=== PATIENT | male | born 1950 | race Caucasian/White ===

== ENCOUNTER 2017-02-12 09:48 | Inpatient (IN) | payer MEDICARE, OTHER ==
[2017-02-12] VITALS (10 sets, daily range): BP systolic 114–148; BP diastolic 42–80; PULSE 62–75; RESP 18–34; O2SAT 90–97
[~2017-02-12] VITALS: Ht 182.9 cm; Wt 166.9 kg
[~2017-02-12 09:48] MED LIST: ALBU8.5H2 INHALATION; FURO-128 PO; GABA-502 PO; GEMF600T PO; GLIP10TA10 PO; MAGN400T4 PO; METF500T4 PO; METO100T3 PO; METO25TA6 PO; SIMV20TA4 PO; WARF5TAB7 PO; WARF7.5T4 PO; ZYL100 PO
--- NOTE | 2017-02-12 10:24 | ED.REPORT ---
HPI-Dyspnea / Wheezing Date of Service Feb 12, 2017 ED Provider: Сергей Chun MD Pt is a 66 year old obese male anticoagulated on warfarin who is a life-long nonsmoker with a history of CHF presents to the ED via personal vehicle complaining of shortness of breath onset in August 2016. The patient has had ongoing symptoms since then with exacerbation to the point that he has been unable to breath at times over the last 3 weeks, rating the severity as a 4-5/ 10. The patient has a history of sleep apnea on CPAP as well as a valve replacement. Last he consulted Dr. Trujillo, Cardiology, and will be adding oxygen to his treatment.The patient states that he has also been feeling very fatigued and lethargic. The patient denies chest pain, lower extremity swelling, weight increase and all other symptoms at this time. Most recent INR 2.6, per patient. Nursing Notes Stated Complaint: SEVERE SHORTNESS OF BREATH Chief Complaint: Respiratory Complaints Nursing Notes Reviewed: Yes ([employer], [employer] not reconciled) Allergies: Coded Allergies: No Known Allergies (Verified Allergy, Unknown, 07/13/16) Uncoded Allergies: POLLENS (Allergy, Unknown, 04/19/14) Scheduled Albuterol HFA (Proair HFA) 8.5 Gm Hfa.aer.ad 2 PUFFS INHALATION BID Allopurinol (Allopurinol) 100 Mg Tablet 100 MG PO DAILY Furosemide (Lasix) 40 Mg Tablet 40 MG PO BID Gabapentin (Gabapentin) 300 Mg Capsule 300 MG PO TID Gemfibrozil (Lopid) 600 Mg Tablet 600 MG PO BID Glipizide (Glipizide) 10 Mg Tablet 10 MG PO AM Magnesium Oxide (Magnesium Oxide) 400 Mg Tablet 400 MG PO BID Metformin (Metformin) 500 Mg Tablet 500 MG PO BID Metoprolol Tartrate (Metoprolol Tartrate) 100 Mg Tablet 100 MG PO BID Simvastatin (Simvastatin) 20 Mg Tablet 20 MG PO HS Warfarin Sodium (Warfarin Sodium) 5 Mg Tablet 5 MG PO ,,,,,Sa Warfarin Sodium (Warfarin Sodium) 7.5 Mg Tablet 7.5 MG PO Wednesdays Scheduled PRN Metoprolol Tartrate (Metoprolol Tartrate) 25 Mg Tablet 25 MG PO DAILY PRN PRN palpitations General Time Seen by MD: 10:22 Chief Complaint Shortness of breath Hx Obtained From: Patient Arrived By: Walk-in Sudden in Onset?: No Onset Occurred: More than a week ago... (6 months) Symptom Duration: Since onset Context Related History: Reports: Congestive heart failure Similar Sx Previous: Yes Past Medical History Past Medical History Notes: PCP: Dr. Shaver Past Medical History Obesity (BMI 53) HTN CHF w/ preserved EF, ho valvular disease s/p TAVR 01/2016 -> anticoagulated, on Warfarin DM Hyperlipidemia Aortic stenosis (now s/p TAVR) GERD Sleep apnea Charcot foot ho [place] ho JOSE/renal insufficiency Past Surgical History Vasectomy January 2016, aortic valve replacement at the (TAVR) left foot surgery Reports: Pacemaker insertion Family History Noncontributory Smoking History Never Smoker Social History Other Social History: Local resident Ambulatory Status Cane Review of Systems Constitutional: Reports: Fatigue, Lethargy, Denies: Fever Respiratory: Reports: Dyspnea on exertion, Non-productive cough, Shortness of breath Cardiovascular: Denies: Chest pain Complete sys rev & neg: except as marked. GI: Denies: Diarrhea, Nausea, Vomiting Physical Exam Initial Vital Signs Vital Signs (First) Date Time Temp Pulse Resp B/P Pulse Ox O2 Delivery O2 Flow Rate FiO2 02/12/17 09:52 37.1 67 24 148/80 90 02/12/17 10:15 Nasal Cannula 3 02/12/17 10:54 30 Initial VS: Reviewed, Vital signs abnormal (incr RR) Head / Eyes: Atraumatic, Normocephalic Skin: Warm, Dry Neurologic: Alert, Oriented General/Constitutional: Awake, Alert, Well developed, Well nourished Appearance / Presentation: Positive: Obese, morbidly Neck: Atraumatic, Supple, No meningismus, Full range of motion, No swelling, Non-tender, No masses Diminished Breath Sounds: Positive: Decreased bilateral Patient is dyspneic, but able to converse Lungs are diminished bilaterally with poor air movement His breathing is rated as 4-5/10 in severity Cardiovascular: Heart rate NL, Regular rhythm, No murmurs Lower Ext Edema: Positive: Bilateral 1+, Pitting Lower Extremity / Pelvis / MS: Full range of motion, Neurologic intact, Vascular intact Legs splinting bilaterally due to Charcot disease. Interpretation & Diagnostics Lab Results Interpretation Result Diagram: 02/12/17 1010 02/12/17 1010 Test 02/12/17 10:10 White Blood Count 11.7th/mm3 (3.8-10.1) Red Blood Count 4.64mil/mm3 (4.40-5.80) Hemoglobin 15.4g/dL (13.8-17.2) Hematocrit 48.0% (41.0-50.0) Mean Corpuscular Volume 103.4fL (81-100) Mean Corpuscular Hemoglobin 33.2pg (27.0-35.0) Mean Corpuscular Hemoglobin Concent 32.1% (32.0-37.0) Red Cell Distribution Width 16.2% (12.3-15.4) Platelet Count 231bil/L (150-400) Neutrophils (%) (Auto) 80.3% (40-74) Lymphocytes (%) (Auto) 9.7% (14-46) Monocytes (%) (Auto) 7.0% (4-12) Eosinophils (%) (Auto) 2.5% (0-5) Basophils (%) (Auto) 0.3% (0-3) Prothrombin Time 36.8sec (8.1-12.5) Prothromb Time International Ratio 3.36ratio Activated Partial Thromboplast Time 40.7sec (22.8-33.0) D-Dimer < 0.50mg/L FEU (<0.50) Sodium Level 140mEq/L (134-144) Potassium Level 5.1mEq/L (3.5-5.2) Chloride Level 96mEq/L (97-108) Carbon Dioxide Level 30mmol/L (18-29) Blood Urea Nitrogen 35mg/dL (8-27) Creatinine 1.54mg/dL (0.76-1.27) Estimat Glomerular Filtration Rate 48mL/min (>59) Glucose Level 177mg/dL (60-99) Lactic Acid Level 1.9mmol/L (0.4-2.0) Calcium Level 9.0mg/dL (8.5-10.1) Magnesium Level 2.3mg/dL (1.6-2.6) Total Bilirubin 0.4mg/dL (0.0-1.2) Aspartate Amino Transf (AST/SGOT) 29U/L (0-50) Alanine Aminotransferase (ALT/SGPT) 23U/L (0-44) Alkaline Phosphatase 111U/L (25-160) Troponin T < 0.010ug/L (0.0-0.011) Pro-B-Type Natriuretic Peptide 4744pg/mL (0-376) Total Protein 7.3g/dL (6.4-8.4) Albumin 3.7g/dL (3.4-5.0) Procalcitonin 0.12ng/mL (0.00-0.08) Hold Martinez Top Tube Received (Received) Lab Results Interpretation: CBC mild leukocytosis CMP mild renal insufficiency D-dimer negative BMP elevated Venous Blood Gas - hypercapnic pH: 7.37 pCO2: 61 pO2: 70.6 (on 3L) cHCO3: 35 cBase: 8.3 ECG Interpretation ECG Interpretation: Sinus rhythm 1st degree heart block AZ interval 209 IVCD Q waves anteriorly and inferiorly No acute ischemic change No interval change from 08/31/2016 Time: 11:25 Interpreted by: ED physician X-Ray Chest Interpretation Chest Xray Interpretation: IMPRESSION: Increase patchy right basilar opacities suggestive of aspiration/atelectasis versus pneumonia. Please correlate clinically. Dictated by: Marino Benton M.D. on 02/12/2017 at 10:57 Approved by: Marino Benton M.D. on 02/12/2017 at 10:59 Electronically signed by Marino Benton View: Portable, 1 view Interpretation / Wet Read by: Interpret - Radiologist Re-Eval/Medical Decision Med Decision/Clinical Course This is a 66-year-old morbidly obese gentleman with a history of valvular disease status post TAVR, severe sleep apnea on BiPAP at night-is recently been evaluated to have increased O2 during BiPAP, and CHF who presents with worsening shortness of breath. He reports he was admitted in August, numbness had a difficult time ever since, but over the past 2 weeks or so symptoms got significantly worse. He follows his pulse oximetry, and notes hypoxia during the day in the low 80s-although is not on O2 at at night. He also notes profound fatigue,. Apnea, and reports even using his BiPAP intermittently during the day to try and help with symptoms. Denies fevers, chills, cough. It turns out he is on the diuretic torsemide. Worsening symptoms he came to the ED. He is hypoxic and requires supplemental O2 here. He is fatigued and side stream end-tidal CO2 elevated in the 50s, and a venous blood gas was drawn and reveals a PCO2 of 60 that appears to be chronic compensation. The patient is therapeutic on his warfarin. Chest x-rays interpreted by the radiologist concerning for pneumonia. Clinically this seems less likely with CHF more likely. Labs are also notable for renal insufficiency with a creatinine lump from normal a mildly elevated level today. BNP is also over 4000 and was much lower in August. The patient was started on BiPAP here-he is not in the extremis, but I suspect a component of central apnea as well-and overall I think the portion of the presentation is secondary to chronic hypercapnic, hypoxic respiratory failure. Given the patient does have a white count, the radiologist reading his films and pneumonia blood cultures being drawn and the patient is being covered for pneumonia, although clinically I remained strongly suspicious more towards CHF. Patient's therapeutic, does not have clinical features suggest PE. Plan is admission for continued management. Source of Hx: Old records Re-Evaluation/Progress : Time of Eval: 13:55 Re-Evaluation/Progress Note: Discussed need for admission. The patient understands and agrees with the plan. All questions have been answered at this time. Consultation : Consulted With: Hospitalist Call Returned at: 13:54 Credit Collections Manager: Agrees with eval, Agrees with plan, Accepts admit Differential Diagnosis: Positive: Congestive heart failure, Pneumonia, Respiratory failure (chronic), Negative: Acute coronary syndrome, Dysrhythmia, Inhalation injury, Myocardial infarction, Pericarditis, Pulmonary embolism Counseled Regarding: Diagnosis, Lab results, Need for admission Discharge & Departure Impression: Primary Impression: Shortness of breath Additional Impressions: Hypoxia Hypercapnia Pneumonia Pneumonia type: due to unspecified organism Laterality: unspecified laterality Lung location: unspecified part of lung Qualified Code: J18.9 - Pneumonia, unspecified organism CHF (congestive heart failure) Congestive heart failure type: unspecified congestive heart failure type Congestive heart failure chronicity: acute on chronic Qualified Code: I50.9 - Heart failure, unspecified Renal insufficiency Morbid obesity with BMI of 50.0-59.9, adult Anticoagulated on Coumadin Disposition: ADMITTED TO HOSPITAL Discharge Condition All VS Reviewed: Yes Condition: Stable Referrals: Doni Shaver MD (PCP) Crit Care Except Billable Proc Time Spent: 30-74 minutes Services Performed: Patient management by me, Time spent at bedside, Reviewing test results, Reviewing imaging, Discussing patient care, Documentation in record Scribe Attestation Portions of this note were transcribed by Cezar Calabrese and Christopher Bender. I, Dr. Chun personally performed the history, physical exam and medical decision -making; I reviewed and confirmed the accuracy of the information in the transcribed note. Signed by: Cezar Calabrese and Christopher Bender, Pete, 02/12/2017 and 14:34 copies to: Doni Shaver MD, Matthew F MD Feb 12, 2017 10:24 Cezar Calabrese Feb 12, 2017 10:34 CHRISTOPHER BENDER Feb 12, 2017 12:53
[2017-02-12 10:26] LABS: BASOPHILS % (AUTO) 0.3 % (0-3); EOSINOPHILS % (AUTO) 2.5 % (0-5); Mean Corpuscular Hemoglobin 33.2 pg (27.0-35.0); Mean Corpuscular Volume 103.4 fL (81-100); NEUTROPHILS % (AUTO) 80.3 % (40-74); Platelet Count 231 bil/L (150-400)
[2017-02-12 10:47] LABS: D-Dimer < 0.50 mg/L FEU (<0.50); INR 3.36 ratio
--- NOTE | 2017-02-12 11:00 | DRSVH ---
PROCEDURE: X-RAY CHEST ONE VIEW, PORTABLE ([id number]) INDICATIONS: SHORTNESS OF BREATH TECHNIQUE: One view of the chest was acquired. COMPARISON: [facility], [place], XR CHEST 1VW (PORTABLE), 08/31/2016, 10:56. FINDINGS: Surgical changes and devices: Cardiac pacer. Lungs and pleura: Increased ill-defined patchy opacities involving the right lung base. Cannot exclud e trace right pleural effusion. No pneumothorax. Chronic diffuse/interstitial changes Mediastinum: Mediastinal contours appear normal. Heart size is normal. Bones and chest wall: No suspicious bony lesions. Overlying soft tissues appear unremarkable. IMPRESSION: Increase patchy right basilar opacities suggestive of aspiration/atelectasis versus pneum onia. Please correlate clinically. Dictated by: Marino Benton M.D. on 02/12/2017 at 10:57 Approved by: Marino Benton M.D. on 02/12/2017 at 10:59
[2017-02-12 11:07] LABS: Magnesium 2.3 mg/dL (1.6-2.6); TROPONIN T < 0.010 ug/L (0.0-0.011)
--- NOTE | 2017-02-12 11:17 | ABG ---
DateTimeAnalyzed 11:12:17 -_ pH ____7.371 - pCO2 ___60.5__ -mmHg pO2 ___70.6__ -mmHg HCO3- ___35.0__ -mmol/L ABE ____8.3__ -mmol/L tHb ___15.3__ -g/dL O2Hb ___91.4__ -% COHb ____3.0__ -% MetHb ___-0.3__ -% sO2 ___93.9__ -% FIO2 ___21.0__ -% Drawn By rn - Notified By cf - Notified Whom ___Dr. Adiel - B 758 -mmHg K+ ____4.6__ -mmol/L tO2 ___19.5__ -Vol% Blayne test N/A -
[2017-02-12] MEDS ORDERED: cefTRIAXone Inj 2,000 MG in Dextrose 5% Minibag Plus 50 ML IV ONE (13:25)
[2017-02-12] MEDS ORDERED: Furosemide 10 mg/mL 10 mL Inj IVPUSH ONE (13:25)
[2017-02-12] MEDS ORDERED: Furosemide 10 mg/mL 2 mL Inj IVPUSH ONE (13:25)
[2017-02-12] MEDS ORDERED: Azithromycin Inj 500 MG in Dextrose 5% w/Vial Mate 250 ML IV ONE (13:25)
[2017-02-12] MEDS ORDERED: Alum-Mag Hydrox-Simeth 30 mL Suspension PO PRN ×2 (14:35→16:45)
[2017-02-12] MEDS ORDERED: Ondansetron 2 mg/mL 2 mL Inj IVPUSH PRN ×2 (14:35→16:45)
[2017-02-12] MEDS ORDERED: BUME1TAB4 PO (15:43)
[2017-02-12] MEDS ORDERED: SPIR25TA3 PO (15:43)
[2017-02-12] MEDS ORDERED: LISI-571 PO (15:43)
[2017-02-12] MEDS ORDERED: TORS20TA3 PO (15:43)
[2017-02-12 15:56] LABS: APPEARANCE,URINE CLEAR (CLEAR,HAZY); COLOR,URINE YELLOW (YELLOW); OCCULT BLOOD,URINE NEGATIVE (NEGATIVE); UROBILINOGEN,URINE NORMAL (NORMAL)
[2017-02-12] MEDS ORDERED: HYDR-3740 PO (16:42)
[2017-02-12] MEDS ORDERED: WARF2.5T82 PO (16:42)
[2017-02-12] MEDS ORDERED: AMOX500C2 PO (16:42)
[2017-02-12] MEDS ORDERED: Polyethylene Glycol (PEG) 17 Gm Powder PO PRN (16:45)
[2017-02-12] MEDS ORDERED: Senna-Docusate 8.6-50 mg Tablet PO PRN (16:45)
[2017-02-12] MEDS ORDERED: Glucose 40% Oral Gel 15 Gm Tube PO PRN (17:45)
--- NOTE | 2017-02-12 18:05 | NUR ---
Patient arrived in CCU after 1500 today. Patient was awake and oriented and denied having any pain. Oxygen saturation on 4L NC was 97-98%- O2 was turned down to 2L NC with oxygen saturation remaining at 94-95%. BIPAP in the room patient declined BIPAP for now. He stated: "I will go back on it after dinner"- continue assessment. Initially patient's heart rate was SR with IVCD 70's-80's but within one hour from the time the patient came to CCU heart rate changed to a v- paced rhythm in mid to high 90s. Patient had a strong skin/body odor especially to both legs. Right medial ankle with old mostly closed wound and with minimal but purulent strong smelling drainage- dressing was changed.The patient stated :" I am being seen by wound care for IT". Wound care consult was ordered for evaluation while in the hospital. 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
--- NOTE | 2017-02-12 18:40 | PCM.HPMED ---
Subjective Date of Service Feb 12, 2017 Primary Provider: Admitting Physician: Mario Faustin DO Primary Care Physician: Doni Shaver MD Attending Physician: Mario Faustin DO Admit Status: From the Emergency Department Chief Complaint: Shortness of breath History of Present Illness: This is a 66-year-old male with a past medical history of congestive heart failure, aortic stenosis, diabetes, obstructive sleep apnea and pacemaker. He has been struggling with shortness of breath for about 2 months but significantly worse over the last 2 weeks with increase in dyspnea on exertion as well as orthopnea. Onset was gradual and he has been seen by his primary care physician who instructed him to stay away from salt but no significant medication changes. 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 He denies any cough, no fevers or chills, no chest pain. He recently had his metoprolol increased from 100-150 mg twice a day, and he was also changed from by mouth bumex to torsemide about 2 months ago. He has Charcot's joint in bilateral lower extremities and has foot prostheses. He is independent with his ADLs but has continuing periodic infections of his feet and has no sensation bilaterally. He denies any headaches dizziness abdominal pain, diarrhea constipation, dysuria no known current infections. No increased anxiety or depression. Review of Systems: As in history of present illness otherwise 12 point review of systems negative Allergies Coded Allergies: No Known Allergies (Verified Allergy, Unknown, 02/12/17) Uncoded Allergies: POLLENS (Allergy, Unknown, 04/19/14) Home Medications Albuterol HFA (Proair HFA) 8.5 Gm Hfa.aer.ad 2 PUFFS INHALATION BID Allopurinol (Allopurinol) 100 Mg Tablet 100 MG PO DAILY Furosemide (Lasix) 40 Mg Tablet 40 MG PO BID Gabapentin (Gabapentin) 300 Mg Capsule 300 MG PO TID Gemfibrozil (Lopid) 600 Mg Tablet 600 MG PO BID Glipizide (Glipizide) 10 Mg Tablet 10 MG PO AM Magnesium Oxide (Magnesium Oxide) 400 Mg Tablet 400 MG PO BID Metformin (Metformin) 500 Mg Tablet 500 MG PO BID Metoprolol Tartrate (Metoprolol Tartrate) 150 Mg Tablet 100 MG PO BID Simvastatin (Simvastatin) 20 Mg Tablet 20 MG PO HS Warfarin Sodium (Warfarin Sodium) 5 Mg Tablet 5 MG PO [place],Mo,Tu,Th,Fr,Sa Warfarin Sodium (Warfarin Sodium) 7.5 Mg Tablet 7.5 MG PO Wednesdays PMH Obesity (BMI 53) HTN CHF w/ preserved EF, ho valvular disease s/p TAVR 01/2016 -> anticoagulated, on Warfarin DM Hyperlipidemia Aortic stenosis (now s/p TAVR) GERD Sleep apnea Charcot foot ho [place] ho JOSE/renal insufficiency Surgical History Vasectomy January 2016, aortic valve replacement at the (TAVR) left foot surgery Reports: Pacemaker insertion Family History Mother had diabetes, father with lung cancer Social History Occupation: retired from [employer] Alcohol Use: Yes Alcoholic Drinks Per Day: 6-8 day Hx Substance Use: No Hx Tobacco Use: No Smoking Status: Never Smoker Exam Vital Signs Vital Sign - Last Date Time Temp Pulse Resp B/P Pulse Ox O2 Delivery O2 Flow Rate FiO2 02/12/17 15:42 Supplement Oxygen 02/12/17 15:20 36.6 75 28 147/71 97 4.00 02/12/17 12:47 30 Exam General: Alert, Oriented X3 NAD. Chronically ill-appearing Head: Normocephalic, atraumatic Eyes: IVAN, EOMI, no scleral Icterus Oropharynx: pink moist oral mucosa Neck: supple, trachea midline, no adenopathy Chest: Decreased breath sounds throughout, difficult exam due to body habitus Heart: Regular rate and rhythm. Normal S1, S2, no murmurs noted Abdomen: soft, obese, non-tender. Bowel sounds are normoactive. No guarding or rebound. Extremities: Charcot joints bilaterally, left ankle prominence bandaged. No open wounds, no edema Skin: Chronic skin changes on his lower extremities, no open wounds Neuro: Cranial nerves II-XII intact, no focal findings. Psych: normal judgement and insight. Lab and Diagnostics Result Diagram: 02/12/17 1010 02/12/17 1010 Assessment & Plan This is a 66-year-old male with known diastolic congestive heart failure admitted for CHF exacerbation and possible early pneumonia. He has been started on IV Lasix as well as Rocephin and azithromycin for community-acquired pneumonia treatment. He has a history of aortic valve replacement by TaVR and is on chronic anticoagulation. Respiratory failure: -Multifactorial, chest x-ray showing early pneumonia, history of CHF and possible undiagnosed COPD -Treatment as below -Continue supplemental oxygen Congestive heart failure exacerbation, chronic systolic: -Lasix 40 mg IV twice a day -Strict I's and O's, daily weights -Low sodium diet -Continue metoprolol -Echocardiogram 6 months ago showing diastolic dysfunction, normal systolic function with 60-65% LVEF Early community-acquired pneumonia, present on admission: -Continue Rocephin and azithromycin -Cultures pending Possible COPD: -No wheezing on exam but decreased breath sounds concerning for COPD -Recommend outpatient follow-up with pulmonology for PFTs -Consider short course of steroids if no improvement with above treatment Type II diabetes: -Medium sliding scale insulin -Holding glipizide and metformin -Diabetic diet History of aortic stenosis with T aVR -Continue Coumadin per pharmacy JODIE, present on admission: -RT consultation for CPAP or BiPAP Acute on chronic renal failure, stage II: -Avoiding IV fluids in setting of congestive heart failure -Follow BMP CODE STATUS: Full code DVT prophylaxis: Fully anticoagulated with Coumadin Disposition: Independent with ADLs, likely home at discharge pending hospital course. Time spent 65 minutes Mario Faustin DO Feb 12, 2017 18:40
--- NOTE | 2017-02-12 18:49 | PCM.CONPHA ---
Subjective Date of Service: Feb 12, 2017 Reason for Pharmacy Consult: Anticoagulation Management Objective Vital Signs Date Time Temp Pulse Resp B/P Pulse Ox O2 Delivery O2 Flow Rate FiO2 02/12/17 15:42 Supplement Oxygen 02/12/17 15:20 36.6 75 28 147/71 97 Nasal Cannula 4.00 02/12/17 12:47 27 94 30 02/12/17 12:38 65 29 134/42 95 BiPAP 02/12/17 10:54 24 96 30 02/12/17 10:15 62 30 137/48 92 Nasal Cannula 3 02/12/17 09:52 37.1 67 24 148/80 90 Weight (Kilograms): 172.700 Height (Feet): 6 Height (Inches): 0 Test 02/12/17 10:10 02/12/17 15:38 White Blood Count 11.7th/mm3 (3.8-10.1) Red Blood Count 4.64mil/mm3 (4.40-5.80) Hemoglobin 15.4g/dL (13.8-17.2) Hematocrit 48.0% (41.0-50.0) Mean Corpuscular Volume 103.4fL (81-100) Mean Corpuscular Hemoglobin 33.2pg (27.0-35.0) Mean Corpuscular Hemoglobin Concent 32.1% (32.0-37.0) Red Cell Distribution Width 16.2% (12.3-15.4) Platelet Count 231bil/L (150-400) Neutrophils (%) (Auto) 80.3% (40-74) Lymphocytes (%) (Auto) 9.7% (14-46) Monocytes (%) (Auto) 7.0% (4-12) Eosinophils (%) (Auto) 2.5% (0-5) Basophils (%) (Auto) 0.3% (0-3) Prothrombin Time 36.8sec (8.1-12.5) Prothromb Time International Ratio 3.36ratio Activated Partial Thromboplast Time 40.7sec (22.8-33.0) D-Dimer < 0.50mg/L FEU (<0.50) Sodium Level 140mEq/L (134-144) Potassium Level 5.1mEq/L (3.5-5.2) Chloride Level 96mEq/L (97-108) Carbon Dioxide Level 30mmol/L (18-29) Blood Urea Nitrogen 35mg/dL (8-27) Creatinine 1.54mg/dL (0.76-1.27) Estimat Glomerular Filtration Rate 48mL/min (>59) Glucose Level 177mg/dL (60-99) Lactic Acid Level 1.9mmol/L (0.4-2.0) Calcium Level 9.0mg/dL (8.5-10.1) Magnesium Level 2.3mg/dL (1.6-2.6) Total Bilirubin 0.4mg/dL (0.0-1.2) Aspartate Amino Transf (AST/SGOT) 29U/L (0-50) Alanine Aminotransferase (ALT/SGPT) 23U/L (0-44) Alkaline Phosphatase 111U/L (25-160) Troponin T < 0.010ug/L (0.0-0.011) Pro-B-Type Natriuretic Peptide 4744pg/mL (0-376) Total Protein 7.3g/dL (6.4-8.4) Albumin 3.7g/dL (3.4-5.0) Procalcitonin 0.12ng/mL (0.00-0.08) Thyroid Stimulating Hormone (TSH) 1.670uIU/mL (0.450-4.500) Hold Martinez Top Tube Received (Received) Urine Color Yellow (YELLOW) Urine Appearance Clear (CLEAR,HAZY) Urine pH 5.0 (5.0-8.0) Urine Specific [place] 1.020 (1.003-1.035) Urine Protein Negativemg/dL (NEG,TRACE) Urine Glucose (UA) Negativemg/dL (NEGATIVE) Urine Ketones Negativemg/dL (NEGATIVE) Urine Occult Blood Negative (NEGATIVE) Urine Nitrite Negative (NEGATIVE) Urine Bilirubin Negative (NEGATIVE) Urine Urobilinogen Normalmg/dL (NORMAL) Urine Leukocyte Esterase Negative (NEGATIVE) Urine RBC 0-2/hpf (0-2) Urine WBC 0-5/hpf (0-5) Urine Epithelial Cells Few/hpf (NONE-MOD) Urine Crystals None seen (NONE SEEN) Urine Bacteria Few/hpf (NONE-FEW) Urine Hyaline Casts Occasional/lpf (NONE) Urine Granular Casts None seen (NONE SEEN) Urine Waxy Casts None seen (NONE SEEN) Urine Red Blood Cell Casts None seen (NONE SEEN) Urine White Blood Cell Casts None seen (NONE SEEN) Urine Mucus Present (None Seen) Urine Trichomonas None seen (NONE SEEN) Urine Yeast None (NONE SEEN) Urinalysis Comment None Urine Culture Reflexed Not indicated Assessment/Plan Assessment/Plan Warfarin management per pharmacy Indication: aortic TAVR INR goal: 2-3 Home warfarin dose: 2.5 mg on Mondays, 5 mg on all other days of the week INR (02/12/17): 3.36 INR is supratherapeutic. Hold warfarin dose tonight. Serial INRs have been ordered x5. Pharmacy to continue to monitor and dose warfarin daily. Thank you, Kizzy Bennett Pharmacist Kizzy Bennett Feb 12, 2017 18:49
[2017-02-12] MEDS: HYDROcodone-APAP 10-325 mg PO PRN (20:29)
[2017-02-12] MEDS: Furosemide 10 mg/mL 4 mL Inj IVPUSH SCH (20:30)
[2017-02-12] MEDS: Insulin LISPRO 300 Unit/3 mL Inj SUBQ SCH (20:33)
[2017-02-12] MEDS ORDERED: 0.9% Sodium Chloride 100 ML ONE (20:34)
[2017-02-12] MEDS: Sodium Chloride LOK Flush 10 mL Syringe IVFLUSH SCH (20:38)
[2017-02-13] VITALS (17 sets, daily range): BP systolic 89–169; BP diastolic 45–108; PULSE 62–78; RESP 18–30; O2SAT 91–96
[2017-02-13 02:51] LABS: BASOPHILS % (AUTO) 0.3 % (0-3); EOSINOPHILS % (AUTO) 2.7 % (0-5); MONOCYTES % (AUTO) 9.3 % (4-12); Mean Corpuscular Hemoglobin 32.8 pg (27.0-35.0); Mean Corpuscular Volume 103.7 fL (81-100); NEUTROPHILS % (AUTO) 72.5 % (40-74); Platelet Count 224 bil/L (150-400)
[2017-02-13 03:08] LABS: INR 3.03 ratio
--- NOTE | 2017-02-13 05:59 | NUR ---
Resp. Pt placed on Bipap at HS but pt tolerated it poorly. Pt had brought own Cpap form home and requested to be placed on his own CPAP. However pt frequently desated into low 80's with 2L O2 blown into it. Increased O2 to 4 L but this did not resolve the problem. Explained to pt importance of keeping sats up and pt agrees to be placed back on Bipap. Pt still occ. desats into high 80's, RT aware.
[2017-02-13] MEDS: Sodium Chloride LOK Flush 10 mL Syringe IVFLUSH SCH ×3 (08:00→21:04)
[2017-02-13] MEDS: cefTRIAXone Inj 1,000 MG in Dextrose 5% Minibag Plus 50 ML IV SCH (08:00)
[2017-02-13] MEDS: Insulin LISPRO 300 Unit/3 mL Inj SUBQ SCH ×4 (08:00→20:57)
[2017-02-13] MEDS: Furosemide 10 mg/mL 4 mL Inj IVPUSH SCH ×2 (08:01→19:38)
[2017-02-13] MEDS: HYDROcodone-APAP 10-325 mg PO PRN ×2 (10:01→19:39)
--- NOTE | 2017-02-13 11:56 | PCM.PHAPRO ---
Progress Date of Service: Feb 13, 2017 Warfarin management per pharmacy Indication: aortic TAVR INR goal: 2-3 Home warfarin dose: 2.5 mg on Mondays, 5 mg on all other days of the week INR Trends Date -Feb 13-Feb INR 3.36 3.03 INR change ~ -0.33 Warf Dose HELD 2.5 INR is almost back into range Will restart home dose of 2.5 mg and give a OT tonight Serial INRs have been ordered x5. Pharmacy to continue to monitor and dose warfarin daily. Thank you, Sara Dubois PharmD Feb 13, 2017 11:56
--- NOTE | 2017-02-13 13:38 | NUR ---
Wound Care [facility] Patient seen for pressure ulcer protocol. Patient previously seen at outpatient wound clinic but discharged approximately one month ago due to wounds healed. Evaluated feet. No open areas noted. Skin very dry and flaking. Patient reports use of Nystatin power manages dry skin. Nystatin powder ordered by , awaiting from pharmacy. Patient requests new offloading foam for left medial ankle. RN has padded ankle with mepilex foam and hypafix tape. Skin check with no other open areas noted. Patient using bariatric ODILON bed. Instructed in turning frequently to decrease prolonged pressure to any area of skin with heel floated. Patient teaches back need to turn side to side every 2 hours and to float heels. Patient found to have excoriated and moist skin to groin skin folds, worse to left. Applied calmoseptine to excoriated areas and placed pillow case in skin folds to decrease moisture. Nurse to apply nystatin to skin folds, as well as feet, when arrives. Nursing to cont to manage skin care. Please re-consult wound care services if needs arise.
[2017-02-13] MEDS: Nystatin 100,000 Unit/Gm 15 Gm Powder TOPICAL SCH ×2 (15:36→20:49)
--- NOTE | 2017-02-13 15:39 | NUR ---
Social Work-initial assessment: Data: See initial assessment. EMR reviewed. Pt is a 66 y/o male who on 02/12/17 for Hypercapia, Hypoxia and respiratory failure per H&P. Patient's re-admit score is four high risk. Pt's insurance is [facility] and Patient's PCP is Dr. Doni Shaver. SW met with patient at bedside to discuss discharge planning, SW role explained and initial assessment complete. SW discussed DPOA/ Advanced directive, pt states he has completed this and will have son bring a copy in. Patient has no VA or LTC benefits. Patient's NOK is his son Taiwo Wesley [phone]. Pt resides at home alone, but his son lives right next door. Pt does not normally use any DME, but has a walker, transfer bench and w/c at home. Pt also has home bipap. Pt has had services in the past with [facility] and [facility]. Pt has been to [facility] in the past. Patient's discharge needs are currently unknown. SW provided patient with a choice. and patient chose [facility] if home health is needed upon discharge. Pt states his son will provide transport home at discharge. SW will continue to follow. Plan: Pt to discharge home when medically stable via POV. Patient requested [facility] if it is needed upon discharge. SW will continue to follow. Bradly Curry LMSW, ATILIO Addendum: 02/13/17 at 1551 by BRADLY CURRY SS Amended: Links added.
--- NOTE | 2017-02-13 16:55 | PCM.PNMED ---
Subjective Date of Service Feb 13, 2017 Subjective Patient resting comfortably in bed, he feels only slightly better today. No chest pain, nausea and vomiting. Exam Vital Signs Vital Sign - Last Date Time Temp Pulse Resp B/P Pulse Ox O2 Delivery O2 Flow Rate FiO2 02/13/17 16:01 36.6 65 18 117/60 95 CPAP 4.00 02/13/17 12:54 30 Intake and Output 02/12/17 02/12/17 02/13/17 Cumulative From/Thru 15:00 23:00 07:00 02/12/17 09:52 - 02/13/17 06:44 Intake Total 450 ml 320 ml 770 ml Output Total 500 ml 1050 ml 1550 ml Balance -50 ml -730 ml -780 ml Intake Oral 200 ml 320 ml 520 ml IV Total 250 ml 250 ml Output Urine Total 500 ml 1050 ml 1550 ml # Voids 1 1 Exam General: Alert, Oriented X3 NAD. Chronically ill-appearing Head: Normocephalic, atraumatic Eyes: IVAN, EOMI, no scleral Icterus Chest: Decreased breath sounds throughout, difficult exam due to body habitus Heart: Regular rate and rhythm. Normal S1, S2, no murmurs noted Abdomen: soft, obese, non-tender. Bowel sounds are normoactive. No guarding or rebound. Extremities: Charcot joints bilaterally, left ankle prominence bandaged. No open wounds, no edema IVs and Medications Medications Reviewed: Medications were reviewed in detail Lab and Diagnostics Result Diagram: 02/13/17 02402/13/17 024 Assessment & Plan This is a 66-year-old male with known diastolic congestive heart failure admitted for CHF exacerbation and possible early pneumonia. He has been started on IV Lasix as well as Rocephin and azithromycin for community-acquired pneumonia treatment. He has a history of aortic valve replacement by TaVR and is on chronic anticoagulation. Respiratory failure: -Multifactorial, chest x-ray showing early pneumonia, history of CHF and possible undiagnosed COPD -Treatment as below -Continue supplemental oxygen -Screening PFTs show severe restrictive lung disease Congestive heart failure exacerbation, chronic systolic: -Lasix 40 mg IV twice a day -Strict I's and O's, daily weights -Low sodium diet -Continue metoprolol -Echocardiogram 6 months ago showing diastolic dysfunction, normal systolic function with 60-65% LVEF Early community-acquired pneumonia, present on admission: -Continue Rocephin and azithromycin -Cultures pending Possible COPD: -No wheezing on exam but decreased breath sounds concerning for COPD -Recommend outpatient follow-up with pulmonology for PFTs. Screening PFT showing severe restrictive lung disease Type II diabetes: -Medium sliding scale insulin -Holding glipizide and metformin -Diabetic diet History of aortic stenosis with T aVR -Continue Coumadin per pharmacy JODIE, present on admission: -RT consultation for CPAP or BiPAP Acute on chronic renal failure, stage II: -Avoiding IV fluids in setting of congestive heart failure -Follow BMP CODE STATUS: Full code DVT prophylaxis: Fully anticoagulated with Coumadin Disposition: Independent with ADLs, likely home at discharge pending hospital course. Mario Faustin DO Feb 13, 2017 16:55
--- NOTE | 2017-02-13 18:29 | NUR ---
respiratory, mentation, skin, pain pt. on bipap this am at 30%; taken off and placed on 4L NC; pt. this afternoon became restless, somewhat disoriented, starting to get oob unassisted; bp 140's/40's, bg 133, o2 sats mid 90's; placed pt. back on bipap; md notified; no new orders. Pt. stated feeling better on bipap and requested home cpap; tolerating well; mentation cleared within several hours. left medial ankle assessed by wound care and dressing changed; see note. Pt. received full bed bath and linen change today; calmoseptine and nystatin applied in groin and abdominal folds; pillowcases in folds. c/o 05/15 left toothache this am; prn norco given with relief.
[2017-02-14] VITALS (14 sets, daily range): BP systolic 115–163; BP diastolic 55–84; PULSE 71–88; RESP 16–34; O2SAT 90–98
--- NOTE | 2017-02-14 03:59 | NUR ---
Sats/pain/mentation At start of shift, stated he felt confused and like he needed to go back on CPAP. Placed on home CPAP with 4 liter bleed in. This kept sats in low-mid 90's until after midnight, when sats kept dropping into low 80's. RT here and placed pt on bipap. This has kept sats around 95% throughout the night. Patient has been oriented and cooperative. C/O tooth pain and oxycodone given with good effect, reducing pain to 2/10, which patient states is good.
[2017-02-14 04:19] LABS: Mean Corpuscular Hemoglobin 32.7 pg (27.0-35.0); Platelet Count 225 bil/L (150-400)
[2017-02-14 04:37] LABS: INR 1.88 ratio
[2017-02-14 05:46] LABS: BASOPHILS % (AUTO) 0 % (0-3); EOSINOPHILS % (AUTO) 5 % (0-5); MONOCYTES % (AUTO) 5 % (4-12); NEUTROPHILS % (AUTO) 75 % (40-74)
[2017-02-14] MEDS: Insulin LISPRO 300 Unit/3 mL Inj SUBQ SCH ×4 (08:00→21:45)
[2017-02-14] MEDS: cefTRIAXone Inj 1,000 MG in Dextrose 5% Minibag Plus 50 ML IV SCH (08:16)
[2017-02-14] MEDS: Furosemide 10 mg/mL 4 mL Inj IVPUSH SCH ×3 (08:19→21:39)
[2017-02-14] MEDS: Nystatin 100,000 Unit/Gm 15 Gm Powder TOPICAL SCH ×2 (08:19→20:30)
[2017-02-14] MEDS: Sodium Chloride LOK Flush 10 mL Syringe IVFLUSH SCH ×3 (08:20→21:41)
--- NOTE | 2017-02-14 10:07 | PCM.PNMED ---
Subjective Date of Service Feb 14, 2017 Subjective He is still short of breath. No chest pain. No nausea or diarrhea or abdomen pain. He denies rhinorrhea, sore throat, or cough. He is very anxious and his legs are swollen. Overnight events reviewed. Exam Vital Signs Vital Sign - Last Date Time Temp Pulse Resp B/P Pulse Ox O2 Delivery O2 Flow Rate FiO2 02/14/17 09:00 Supplement Oxygen CPAP/BIPAP 02/14/17 08:12 36.6 83 34 142/58 91 4.00 02/14/17 07:22 35 Intake and Output 02/13/17 02/13/17 02/14/17 Cumulative From/Thru 15:00 23:00 07:00 02/12/17 09:52 - 02/14/17 04:49 Intake Total 1260 ml 100 ml 2130 ml Output Total 975 ml 650 ml 3175 ml Balance 285 ml -550 ml -1045 ml Intake Oral 1200 ml 100 ml 1820 ml IV Total 60 ml 310 ml Output Urine Total 975 ml 650 ml 3175 ml # Voids 1 # Bowel Movements 0 0 Exam Anxious, but alert and oriented. Fluent speech Anicteric sclera Lungs with some inspiratory wheezing (denies ever smoking) Heart regular, no murmur Abdomen distended Legs and feet with gross edema. No rash. IVs and Medications Medications Reviewed: Medications were reviewed in detail Lab and Diagnostics Result Diagram: 02/14/17 0355 02/14/17 0355 Assessment & Plan This is a 66-year-old male with known diastolic congestive heart failure admitted for CHF exacerbation and possible early pneumonia. He has been started on IV Lasix as well as Rocephin and azithromycin for community-acquired pneumonia treatment. He has a history of aortic valve replacement by TaVR and is on chronic anticoagulation. #. Acute hypoxic respiratory falure, POA. Unclear etiology, perhaps multifactorial. -Multifactorial, chest x-ray showing early pneumonia, history of CHF and possible undiagnosed COPD -Treatment as below -Continue supplemental oxygen Continue ABx as well as diuresis. Will obtain ECHO today. Consider rule out pulmonary embolism. #. Acute on chronic diastolic HF, POA: -Lasix 40 mg IV , will increase to TID. -Strict I's and O's, daily weights -Low sodium diet -Continue metoprolol -Echocardiogram 6 months ago showing diastolic dysfunction, normal systolic function with 60-65% LVEF #. Possible community-acquired pneumonia, present on admission: -Continue Rocephin and azithromycin -Cultures pending #. Type II diabetes: -Medium sliding scale insulin -Holding glipizide and metformin -Diabetic diet No change to medical management #. History of aortic stenosis with T aVR, POA. -Continue Coumadin per pharmacy. Repeat ECHO. #. JODIE, present on admission: POA. Clinically stable. -RT consultation for CPAP or BiPAP #. Acute on chronic renal failure, stage II: -Avoiding IV fluids in setting of congestive heart failure -Follow BMP, this is about the same. Avoid nephrotoxins and renal dose as required. CODE STATUS: Full code DVT prophylaxis: Fully anticoagulated with Coumadin Disposition: Independent with ADLs, likely home at discharge pending hospital course. Pain Evaluation: Adequate Pain Control Resuscitation Status: CPR: Attempt Resuscitation Time spent 30 min Blayne Clemons MD Feb 14, 2017 10:07
[2017-02-14] MEDS: HYDROcodone-APAP 10-325 mg PO PRN (11:06)
--- NOTE | 2017-02-14 17:05 | NUR ---
O2/Pain/Anxiety The pt was on 4L NC for the majority of the day - going on cpap with a 4L bleed in during an afternoon nap. The pt's sats are holding in the low 90's. The pt continues to report tooth pain with 1 tab Lemmon successfully managing it. The pt has been feeling anxious through the shift, and an order for Ativan TID was prescribed with good results.
--- NOTE | 2017-02-14 18:57 | DRSVH ---
[facility] [address] [place] [address] Echocardiogram Report Name: MADYSON GREGORY JStudy Date: 02/14/2017 Height: 72 in Hospital Exam Location: [facility] Weight: 385 lb Gender: Male BSA: 2.8 m2 : 1950 Age: 66 yrs BP: 142/58 mmHg Reason For Study: Dyspnea Ordering Physician: HOSPITALIST SVerformed By: Earnest Marshall Referring Physician: JAMES ARELLANO Interpretation Summary This was a technically difficult study. 1. The left ventricle is not optimally visualized. The size appears at least mildly dilated. The function (with the use of Definity) appears grossly normal. 2. The right ventricle is not well visualized. 3. The prosthetic aortic valve (although not optimally visualized) appears to be functioning well (the velocities and gradient obtained on this study are less than on the previous study) 4. The mitral valve is not optimally visualized. The gradient across the valve is suggestive of moderate to severe valvular stenosis (the gradient was reported as higher on the previous study) Procedure: A two-dimensional transthoracic echocardiogram with color flow and Doppler was performed. The study quality was technically difficult. A contrast injection of Definity was performed to improve assessment of LV function. Comparison is made with the echocardiogram of 08/09/16. The patient has a paced rhythm. Left Ventricle: LV is not well visualized but the size appears at least mildly dilated. The outflow tract velocities are elevated. Right Ventricle: The right ventricle is not well visualized. There is a pacemaker lead in the right ventricle. Atria: The left atrium is mildly dilated. The right atrium is mildly dilated. There is no Doppler evidence for an interatrial shunt. Mitral Valve: The mitral valve is not well visualized. The mitral valve mean gradient is 11 mmHg. There is mild mitral regurgitation. Aortic Valve: There is a bioprosthetic aortic valve. The aortic valve mean gradient is 22 mmHg. The velocity ratio is 0.5. No aortic regurgitation is present. Tricuspid Valve: The tricuspid valve is not well visualized. Pulmonary artery pressures cannot be estimated because of the lack of a measurable TR jet velocity. Pulmonic Valve: The pulmonic valve is not well visualized. Great Vessels: The aortic Sinus(es) of Valsalva are borderline dilated. The ascending aorta is mildly enlarged. The pulmonary is not well visualized. The IVC is dilated (diameter is greater than 2.1 cm) and it collapses less than 50% with a sniff. This suggests a high right atrial pressure of 15 mm Hg. Pericardium/ Pleura There is no pericardial effusion. There is no pleural effusion. MMode/2D Measurements & Calculations RA long axis: 6.3 cm LVOT diam: 2.5 cm LA A4 area: 29.2 cm Ao root diam: 4.4 cm IVC diam: 3.1 cm RA area: 27.1 cm asc Aorta Diam: 3.8 cm RA vol: 99.1 ml RA : 35.2 ml/m2 Doppler Measurements & Calculations Ao V2 max MV E max doc MV E/A: 1.8 MV V2 mean : 318.3 cm/sec : 242.8 cm/sec : 150.8 cm/sec Ao max PG MV A max doc MV mean PG : 40.5 mmHg : 137.4 cm/sec : 10.9 mmHg Ao mean PG MVA(VTI): 2.8 cm2 MV V2 VTI : 22.0 mmHg LVOT Max Doc MV dec time : 159.5 cm/sec : 0.18 sec CAROL(I,D): 2.7 cm sev ratio Ao V2 mean LV V1 max PG CAROL indexed to BSA : 224.1 cm/sec (cm^2/m^2): 0.95 Ao V2 VTI: 66.4 cmLV V1 VTI: 35.6 cm CAROL(V,D): 2.5 cm2 Reading Physician:06:56 PM
[2017-02-15] VITALS (11 sets, daily range): BP systolic 116–146; BP diastolic 45–69; PULSE 67–79; RESP 16–32; O2SAT 92–97
[2017-02-15 03:41] LABS: INR 1.57 ratio
[2017-02-15] MEDS: Insulin LISPRO 300 Unit/3 mL Inj SUBQ SCH ×4 (08:00→21:06)
[2017-02-15] MEDS: Nystatin 100,000 Unit/Gm 15 Gm Powder TOPICAL SCH ×2 (09:02→21:03)
[2017-02-15] MEDS: Sodium Chloride LOK Flush 10 mL Syringe IVFLUSH SCH ×3 (09:02→21:06)
[2017-02-15] MEDS: Furosemide 10 mg/mL 4 mL Inj IVPUSH SCH ×3 (09:02→21:03)
[2017-02-15] MEDS: cefTRIAXone Inj 1,000 MG in Dextrose 5% Minibag Plus 50 ML IV SCH (09:04)
--- NOTE | 2017-02-15 10:17 | NUR ---
[facility] Signed
--- NOTE | 2017-02-15 11:16 | PCM.PNMED ---
Subjective Date of Service Feb 15, 2017 Subjective Some disorientation last night. None now, less dyspnea. No cough. No fevers. No dysuria or constipation. Was on BiPAP most of night. RN notes reviewed. Exam Vital Signs Vital Sign - Last Date Time Temp Pulse Resp B/P Pulse Ox O2 Delivery O2 Flow Rate FiO2 02/15/17 10:52 71 02/15/17 07:10 36.7 118/55 95 Nasal Cannula 4.00 02/15/17 05:27 22 02/14/17 20:24 35 Intake and Output 02/14/17 02/14/17 02/15/17 Cumulative From/Thru 15:00 23:00 07:00 02/12/17 09:52 - 02/15/17 06:51 Intake Total 940 ml 400 ml 3470 ml Output Total 825 ml 800 ml 4800 ml Balance 115 ml -400 ml -1330 ml Intake Oral 840 ml 400 ml 3060 ml IV Total 100 ml 410 ml Output Urine Total 825 ml 800 ml 4800 ml # Voids 1 # Bowel Movements 1 1 Exam Anxious, but alert and oriented. Fluent speech Anicteric sclera Lungs with some inspiratory wheezing (denies ever smoking) Heart regular, no murmur Abdomen distended Legs and feet with gross edema. No rash. Some ecchymosis, and venous stasis changes on legs IVs and Medications Medications Reviewed: Medications were reviewed in detail Lab and Diagnostics Result Diagram: 02/14/17 0355 02/14/17 0355 Cardiac Echo Impressions 1. The left ventricle is not optimally visualized. The size appears at least mildly dilated. The function (with the use of Definity) appears grossly normal. 2. The right ventricle is not well visualized. 3. The prosthetic aortic valve (although not optimally visualized) appears to be functioning well (the velocities and gradient obtained on this study are less than on the previous study) 4. The mitral valve is not optimally visualized. The gradient across the valve is suggestive of moderate to severe valvular stenosis (the gradient was reported as higher on the previous study) Assessment & Plan This is a 66-year-old male with known diastolic congestive heart failure admitted for CHF exacerbation and possible early pneumonia. He has been started on IV Lasix as well as Rocephin and azithromycin for community-acquired pneumonia treatment. He has a history of aortic valve replacement by TaVR and is on chronic anticoagulation. #. Acute hypoxic respiratory falure, POA and improving. Probable acute diastolic HF relating to mitral stenosis. -Treatment as below -Continue supplemental oxygen Continue ABx as well as diuresis. Will obtain ECHO today. Consider rule out pulmonary embolism. #. Acute on chronic diastolic HF, POA and improving: -Lasix 40 mg IV , will increase to TID. -Strict I's and O's, daily weights -Low sodium diet -Continue metoprolol -ECHO stable except moderate to severe mitral stenosis. #. Possible community-acquired pneumonia, present on admission and improving: -Continue Rocephin and azithromycin -Cultures pending #. Acute on chronic renal failure, stage II:POA, and status pending (labs pending) -Avoiding IV fluids in setting of congestive heart failure -Follow BMP, this is about the same. Avoid nephrotoxins and renal dose as required. #. Confusion, new since last night. ABG today to rule out hypercarbia. #. Type II diabetes:POA and stable. -Medium sliding scale insulin -Holding glipizide and metformin -Diabetic diet No change to medical management #. History of aortic stenosis with T aVR -Continue Coumadin per pharmacy. Repeat ECHO. #. Moderate to severe mitral stenosis, POA. Follow clinically. #. JODIE, present on admission and stable: -RT consultation for CPAP or BiPAP CODE STATUS: Full code DVT prophylaxis: Fully anticoagulated with Coumadin Disposition: Independent with ADLs, likely home at discharge pending hospital course. Discharge Monday at soonest. Pain Evaluation: Adequate Pain Control Resuscitation Status: CPR: Attempt Resuscitation Blayne Clemons MD Feb 15, 2017 11:16
[2017-02-15 11:18] LABS: Mean Corpuscular Hemoglobin 32.9 pg (27.0-35.0); Mean Corpuscular Volume 106.3 fL (81-100)
[2017-02-15 11:40] LABS: Magnesium 2.5 mg/dL (1.6-2.6)
--- NOTE | 2017-02-15 13:09 | DRSVH ---
PROCEDURE: X-RAY CHEST ONE VIEW, PORTABLE ([id number]) INDICATIONS: dyspnea TECHNIQUE: One view of the chest was acquired. COMPARISON: [facility], CR, XR CHEST 1VW (PORTABLE), 02/12/2017, 10:12. FINDINGS: Surgical changes and devices: Stable position of left cardiac pacer. Lungs and pleura: No pleural effusions or pneumothorax. Persistent bibasilar airspace opacities and small pleural effusions present. Mediastinum: Mediastinal contours appear normal. Heart size is normal. Bones and chest wall: No suspicious bony lesions. Overlying soft tissues appear unremarkable. IMPRESSION: Persistent bibasilar air space opacity suspicious for pneumonia and there are small pleur al effusions present. Dictated by: Kushal ACOSTA Interpreted: Diane Kim MD on 02/15/2017 at 13:08 Transcribed by: CAS on 02/15/2017 at 13:09 Approved by: Diane Kim M.D. on 02/15/2017 at 22:22
--- NOTE | 2017-02-15 15:03 | ABG ---
DateTimeAnalyzed 15:00:00 -_ pH ____7.271 - 7.350 7.450 pCO2 ___84.6__ -mmHg 35.0 45.0 pO2 ___44.3__ -mmHg 69.0 116 HCO3- ___37.6__ -mmol/L 22.0 26.0 ABE ____7.5__ -mmol/L -2.0 2.0 tHb ___14.1__ -g/dL O2Hb ___77.5__ -% COHb ____1.8__ -% MetHb ____0.8__ -% sO2 ___79.6__ -% 25.0 FIO2 ___32.0__ -% Drawn By NB - Date/Time Notified____ 15:03:00 -_ Spontaneous_RR ___22.0__ -b/min Liter_Flow ____4.0__ -L/min Oxygen Device 1 __CANNULA - Notified By NB - Notified Whom ____A. Deonte, MD - B 750 -mmHg tO2 ___15.4__ -Vol%
[2017-02-16] VITALS (11 sets, daily range): BP systolic 118–179; BP diastolic 56–76; PULSE 67–83; RESP 16–38; O2SAT 92–96
[2017-02-16 03:53] LABS: INR 1.85 ratio
--- NOTE | 2017-02-16 05:23 | NUR ---
Mentation Pt woke in the night disoriented and states he began ripping lines off, including Bipap mask and IV, needing to use urinal urgently. Pt found sitting at EOB bleeding. IV site dressed, bleeding stopped, assisted with urinal. Pt given partial bed bath, linens changed and Bipap mask chagned/reapplied by RT. Pt is A&Ox3 when assessed. [place] Bedalarm set up and activated. New IV started in right hand.
[2017-02-16] MEDS: Insulin LISPRO 300 Unit/3 mL Inj SUBQ SCH ×4 (08:00→22:00)
[2017-02-16] MEDS: Sodium Chloride LOK Flush 10 mL Syringe IVFLUSH SCH ×3 (08:47→22:08)
[2017-02-16] MEDS: cefTRIAXone Inj 1,000 MG in Dextrose 5% Minibag Plus 50 ML IV SCH (08:47)
[2017-02-16] MEDS: Furosemide 10 mg/mL 4 mL Inj IVPUSH SCH ×3 (08:47→22:00)
[2017-02-16] MEDS: Nystatin 100,000 Unit/Gm 15 Gm Powder TOPICAL SCH ×2 (08:48→21:41)
--- NOTE | 2017-02-16 09:12 | ABG ---
DateTimeAnalyzed 09:06:00 -_ pH ____7.334 - 7.350 7.450 pCO2 ___71.5__ -mmHg 35.0 45.0 pO2 ___70.0__ -mmHg 69.0 116 HCO3- ___37.0__ -mmol/L 22.0 26.0 ABE ____8.6__ -mmol/L -2.0 2.0 tHb ___14.2__ -g/dL O2Hb ___92.7__ -% COHb ____1.8__ -% MetHb ____0.8__ -% sO2 ___95.2__ -% 25.0 FIO2 ___36.0__ -% Drawn By RC - Date/Time Notified____ 09:11:00 -_ Liter_Flow ____4.0__ -L/min Oxygen Device 1 __CANNULA - Notified By RC - Notified Whom Deonte, Blayne MD -___ B 751 -mmHg tO2 ___18.5__ -Vol% Blayne test _Positive -
--- NOTE | 2017-02-16 10:42 | PCM.PHAPRO ---
Progress WARFARIN DOSING WARFARIN INDICATION: AVR (with DHF) [facility] INR 2.5-3.5 Date Feb 13-Feb 14-Feb 15-Feb 16-Feb 17-Feb 15-Feb 16-Feb 17-Feb 18-Feb INR 3.36 3.03 1.88 1.57 1.85 INR change -0.33 -1.15 -0.31 0.28 Warf Dose HELD 2.5 5 7.5 X1 6 x1 a/ [facility] INR 2.5-3.5 p/ Repeat bump dose today of 6mg, likely resume home dosing tomorrow Brad Zapien S Pharm D Feb 16, 2017 10:42
[2017-02-16] MEDS ORDERED: LORazepam 1 mg Tablet PO PRN (14:45)
--- NOTE | 2017-02-16 16:08 | NUR ---
Social Work- Continued D/C Planning Data: EMR reviewed. Pt is on day 4 of hospitalization for Hypercapia, Hypoxia and respiratory failure per H&P. SW spoke with pt at bedside regarding discharge plan, home health services at discharge. Pt has history of RN PT with [facility]. Pt feels that this would be beneficial to him after discharge, pt choiced [facility]. SW to make referral to [facility]. F2F in folder to be signed. Pt to discharge home with [facility] and son to transport via POV. SW will continue to follow. Assessment: Pt who would benefit from [facility]. Plan: SW to make referral to [facility]. F2F in folder to be signed by . Pt to discharge home with [facility] and son to transport via POV. SW will continue to follow. RUDY Saenz
[2017-02-17] VITALS (13 sets, daily range): BP systolic 145–167; BP diastolic 64–78; PULSE 68–79; RESP 18–28; O2SAT 92–96
[2017-02-17 04:01] LABS: INR 1.74 ratio
--- NOTE | 2017-02-17 06:01 | NUR ---
Resp/Mentation pt able to tolerate BIPAP all night. Pt sightly confused about place and time but easily reoriented, keeps asking the same questions several times but pleasant and cooperative. No c/o pain all shift.
[2017-02-17] MEDS: Insulin LISPRO 300 Unit/3 mL Inj SUBQ SCH ×4 (08:00→20:35)
[2017-02-17] MEDS: Furosemide 10 mg/mL 4 mL Inj IVPUSH SCH ×3 (08:30→20:21)
--- NOTE | 2017-02-17 09:15 | PCM.PNMED ---
Subjective Date of Service Feb 16, 2017 Subjective Somewhat confused, still somewhat short of breath but improving. Less edema. No chest pain or palpitations or abdominal pain. No nausea. He did get agitated regarding IV. Overnight events reviewed. Exam Vital Signs Vital Sign - Last Date Time Temp Pulse Resp B/P Pulse Ox O2 Delivery O2 Flow Rate FiO2 02/17/17 08:40 Supplement Oxygen CPAP/BIPAP 02/17/17 08:00 36.8 74 24 152/67 92 40 02/17/17 07:45 4.00 Intake and Output 02/16/17 02/16/17 02/17/17 Cumulative From/Thru 15:00 23:00 07:00 02/12/17 09:52 - 02/17/17 06:20 Intake Total 0 ml 4380 ml Output Total 990 ml 7440 ml Balance -990 ml -3060 ml Intake Oral 0 ml 3850 ml IV Total 530 ml Output Urine Total 990 ml 7440 ml # Voids 3 4 # Bowel Movements 2 Exam Alert and oriented 3, no distress. Fluent speech Anicteric sclera. Lungs are clear with normal rate and effort, does have diminished breath sounds globally at about 2 out of 4. Heart is regular without murmur gallop or rub Abdomen soft nontender, distended Extremities pulses are 1-2+ edema. Skin is free of rash or lesions. IVs and Medications Medications Reviewed: Medications were reviewed in detail Lab and Diagnostics Result Diagram: 02/15/17 0300 02/15/17 0300 Cardiac Echo Impressions 1. The left ventricle is not optimally visualized. The size appears at least mildly dilated. The function (with the use of Definity) appears grossly normal. 2. The right ventricle is not well visualized. 3. The prosthetic aortic valve (although not optimally visualized) appears to be functioning well (the velocities and gradient obtained on this study are less than on the previous study) 4. The mitral valve is not optimally visualized. The gradient across the valve is suggestive of moderate to severe valvular stenosis (the gradient was reported as higher on the previous study) Assessment & Plan This is a 66-year-old male with known diastolic congestive heart failure admitted for CHF exacerbation and possible early pneumonia. He has been started on IV Lasix as well as Rocephin and azithromycin for community-acquired pneumonia treatment. He has a history of aortic valve replacement by TaVR and is on chronic anticoagulation. #. Acute hypoxic respiratory failure, POA. Unclear etiology, perhaps multifactorial. Not really improving at this point relatively stable.i -Multifactorial, chest x-ray showing early pneumonia, history of CHF and possible undiagnosed COPD -Treatment as below -Continue supplemental oxygen Continue ABx as well as diuresis. Will obtain ECHO today. Consider rule out pulmonary embolism. He continues to require BiPAP for recurrent hypercarbia. He has no formal diagnosis of COPD but probably does have hypoventilation obesity syndrome as well as diastolic heart failure. We will discuss obtaining nephrology with [facility] #. Acute on chronic diastolic HF, POA, this is slowly improving.: -Lasix 40 mg IV , will increase to TID. -Strict I's and O's, daily weights -Low sodium diet -Continue metoprolol -Echocardiogram 6 months ago showing diastolic dysfunction, normal systolic function with 60-65% LVEF We will continue aggressive diuresis. #. Possible community-acquired pneumonia, present on admission. This is stable. : -Continue Rocephin and azithromycin -Cultures pending #. Type II diabetes, POA. Stable.: -Medium sliding scale insulin -Holding glipizide and metformin -Diabetic diet No change to medical management #. History of aortic stenosis with T aVR, POA. Stable. -Continue Coumadin per pharmacy. Repeat ECHO. #. JOIDE, present on admission: POA. Clinically stable. -RT consultation for CPAP or BiPAP #. Acute on chronic renal failure, stage II, improving.: -Avoiding IV fluids in setting of congestive heart failure -Follow BMP, this is about the same. Avoid nephrotoxins and renal dose as required. CODE STATUS: Full code DVT prophylaxis: Fully anticoagulated with Coumadin Disposition: Independent with ADLs, likely home at discharge pending hospital course. Resuscitation Status: CPR: Attempt Resuscitation Blayne Clemons MD Feb 17, 2017 09:15
--- NOTE | 2017-02-17 09:20 | PCM.PNMED ---
Subjective Date of Service Feb 17, 2017 Subjective The patient continues to have difficulties with recurrent hypercarbia and confusion. He had gotten pulled out IV last night. His CO2 Slightly from 60- 85. He Tried His Home CPAP Last Night but This Was More Aggravating Than the APAP from the Hospital. He denies chest pain. No abdominal pain. No diarrhea. Overnight Events Included Agitation Confusion Point Out Of IV. Exam Vital Signs Vital Sign - Last Date Time Temp Pulse Resp B/P Pulse Ox O2 Delivery O2 Flow Rate FiO2 02/17/17 08:40 Supplement Oxygen CPAP/BIPAP 02/17/17 08:00 36.8 74 24 152/67 92 40 02/17/17 07:45 4.00 Intake and Output 02/16/17 02/16/17 02/17/17 Cumulative From/Thru 15:00 23:00 07:00 02/12/17 09:52 - 02/17/17 06:20 Intake Total 0 ml 4380 ml Output Total 990 ml 7440 ml Balance -990 ml -3060 ml Intake Oral 0 ml 3850 ml IV Total 530 ml Output Urine Total 990 ml 7440 ml # Voids 3 4 # Bowel Movements 2 Exam Alert and oriented 3, no distress. Fluent speech. He is somewhat confused but reasonably conversant. Anicteric sclera. Lungs are clear with normal rate and effort, diminished breath sounds at 2 out of 4. Heart is regular without murmur gallop or rub Abdomen soft nontender, distended Extremities are notable for 1+ edema. Skin is free of rash or lesions. IVs and Medications Medications Reviewed: Medications were reviewed in detail Lab and Diagnostics Result Diagram: 02/15/17 0300 02/15/17 0300 Cardiac Echo Impressions 1. The left ventricle is not optimally visualized. The size appears at least mildly dilated. The function (with the use of Definity) appears grossly normal. 2. The right ventricle is not well visualized. 3. The prosthetic aortic valve (although not optimally visualized) appears to be functioning well (the velocities and gradient obtained on this study are less than on the previous study) 4. The mitral valve is not optimally visualized. The gradient across the valve is suggestive of moderate to severe valvular stenosis (the gradient was reported as higher on the previous study) Assessment & Plan This is a 66-year-old male with known diastolic congestive heart failure admitted for CHF exacerbation and possible early pneumonia. He has been started on IV Lasix as well as Rocephin and azithromycin for community-acquired pneumonia treatment. He has a history of aortic valve replacement by TaVR and is on chronic anticoagulation. #. Acute on chronic hypercarbic respiratory failure, POA. Unclear etiology, perhaps multifactorial. This was not really improving but stable. -Multifactorial, chest x-ray showing early pneumonia, history of CHF and possible undiagnosed COPD -Treatment as below -Continue supplemental oxygen Continue ABx as well as diuresis. Patient requires nocturnal and daytime volume ventilation. BiPAP is insufficient due to the severity of condition. OHS is primary cause of hypercapnia. JODIE is not the primary cause for the patient's hypercapnia and not the reason that this is requiring ventilator support. He continues to require BiPAP for recurrent hypercarbia. He has no formal diagnosis of COPD but probably does have hypoventilation obesity syndrome as well as diastolic heart failure. We will discuss obtaining Trilogy with [facility] this afternoon. # Obesity hypoventilation Syndrome, POA. Not improving. #. Acute on chronic diastolic HF, POA, this is slowly improving.: -Lasix 40 mg IV , will increase to TID. -Strict I's and O's, daily weights -Low sodium diet -Continue metoprolol -Echocardiogram 6 months ago showing diastolic dysfunction, normal systolic function with 60-65% LVEF We will continue aggressive diuresis. Lasix IV 3 times a day. #. Paroxysmal atrial fibrillation, just started this morning. This is rate controlled. He is on Coumadin. We will follow clinically. #. Possible community-acquired pneumonia, present on admission. This is stable. : -Continue Rocephin and azithromycin -Cultures negative #. Type II diabetes, POA. Stable.: -Medium sliding scale insulin -Holding glipizide and metformin -Diabetic diet No change to medical management #. History of aortic stenosis with T aVR, POA. Stable. -Continue Coumadin per pharmacy. Repeat ECHO. The patient has no clear reason for being on Coumadin however he did develop paroxysmal atrial fibrillation this morning. #. JODIE, present on admission: POA. Clinically stable. -RT consultation for CPAP or BiPAP #. Acute on chronic renal failure, stage II, improving.: -Avoiding IV fluids in setting of congestive heart failure -Follow BMP, this is about the same. Avoid nephrotoxins and renal dose as required. CODE STATUS: Full code DVT prophylaxis: Fully anticoagulated with Coumadin Disposition: Independent with ADLs, likely home at discharge pending hospital course. Resuscitation Status: CPR: Attempt Resuscitation Blayne Clemons MD Feb 17, 2017 09:20
--- NOTE | 2017-02-17 10:50 | PCM.PHAPRO ---
Progress WARFARIN DOSING WARFARIN INDICATION: AVR (with DHF) TARGET INR Question 2 to 3 vs. 2.5-3.5 Date -Feb 13-Feb 14-Feb 15-Feb 16-Feb 17-Feb 18-Feb 19-Feb 20-Feb 21-Feb INR 3.36 3.03 1.88 1.57 1.85 INR change -0.33 -1.15 -0.31 0.28 Warf Dose HELD 2.5 5 7.5 X1 6 x1 a/ Target INR not clear. D/W yellow team. p/ Target INR of 2.5. Bump dose again today of 7.5mg Brad Zapien S Pharm D Feb 17, 2017 10:50
[2017-02-17] MEDS: Sodium Chloride LOK Flush 10 mL Syringe IVFLUSH SCH ×2 (11:12→17:54)
[2017-02-17] MEDS: Nystatin 100,000 Unit/Gm 15 Gm Powder TOPICAL SCH ×2 (11:13→20:21)
[2017-02-17] MEDS: cefTRIAXone Inj 1,000 MG in Dextrose 5% Minibag Plus 50 ML IV SCH (11:13)
[2017-02-17] MEDS: HYDROcodone-APAP 10-325 mg PO PRN (14:34)
--- NOTE | 2017-02-17 18:42 | NUR ---
Mentation/Activity Pt mentation improved throughout shift. At last assessment pt is A&Ox3, he is still slightly forgetful. Pt improved activity tolerance, up to edge of bed for dinner, pt denies SOB, lightheadedness, dizziness. States he is feeling much better. Respiratory, 4L NC SAO2 mid 90s. Lung sounds clear but diminished.
[2017-02-18] VITALS (9 sets, daily range): BP systolic 131–149; BP diastolic 50–75; PULSE 66–76; RESP 18–23; O2SAT 93–97
--- NOTE | 2017-02-18 00:42 | ABG ---
DateTimeAnalyzed 00:38:00 -_ pH ____7.301 - 7.350 7.450 pCO2 ___82.4__ -mmHg 35.0 45.0 pO2 ___97.0__ -mmHg 69.0 116 HCO3- ___39.4__ -mmol/L 22.0 26.0 ABE ____9.5__ -mmol/L -2.0 2.0 tHb ___14.6__ -g/dL O2Hb ___95.5__ -% COHb ____1.5__ -% MetHb ____0.7__ -% sO2 ___97.6__ -% 25.0 FIO2 ___40.0__ -% Drawn By LT - Date/Time Notified____ 00:41:00 -_ Notified By LT - Notified Whom ARROYO, INGA DO - B 763 -mmHg tO2 ___19.7__ -Vol% Blayne test _Positive -
[2017-02-18] MEDS: Sodium Chloride LOK Flush 10 mL Syringe IVFLUSH SCH ×3 (01:21→15:51)
--- NOTE | 2017-02-18 05:34 | NUR ---
Mentation: Pt. alert and oriented X3, with slight forgetfulness at start of shift. BiPAP placed on pt. with 4L oxygen bleed in at HS. Pt. went to sleep, then awoke at approximately 0030 confused and forgetful, pt. had pulled off BiPAP mask and was attempting to get out of bed. Pt. was alert and oriented X2 and seemed more forgetful than earlier in shift. Pt. re-oriented. Walked pt. (leg/foot braces utilized) with 2 person heavy assist to head of bed, positioned pt. back in bed, and re-placed BiPAP back on pt. Pt. sleeping soundly in room since confusion episode, will continue to monitor.
[2017-02-18] MEDS: Insulin LISPRO 300 Unit/3 mL Inj SUBQ SCH ×4 (08:00→21:34)
[2017-02-18] MEDS: cefTRIAXone Inj 1,000 MG in Dextrose 5% Minibag Plus 50 ML IV SCH (10:10)
[2017-02-18] MEDS: Furosemide 10 mg/mL 4 mL Inj IVPUSH SCH ×3 (10:15→21:30)
[2017-02-18] MEDS: Nystatin 100,000 Unit/Gm 15 Gm Powder TOPICAL SCH ×2 (10:19→21:30)
--- NOTE | 2017-02-18 10:28 | PCM.PNMED ---
Subjective Date of Service Feb 18, 2017 Subjective he is doing well today. Most confusion last night. He tries any chest pain cough or abdominal pain. No difficulty breathing. He did use his BiPAP at some point last night. He has you been urinating without difficulty and denies constipation or diarrhea. No overnight events Exam Vital Signs Vital Sign - Last Date Time Temp Pulse Resp B/P Pulse Ox O2 Delivery O2 Flow Rate FiO2 02/18/17 09:58 Supplement Oxygen CPAP/BIPAP 02/18/17 09:58 36.7 73 20 137/66 94 3.00 02/18/17 03:35 40 Intake and Output 02/17/17 02/17/17 02/18/17 Cumulative From/Thru 15:00 23:00 07:00 02/12/17 09:52 - 02/18/17 06:17 Intake Total 950 ml 0 ml 5330 ml Output Total 1050 ml 275 ml 8765 ml Balance -100 ml -275 ml -3435 ml Intake Oral 900 ml 0 ml 4750 ml IV Total 50 ml 580 ml Output Urine Total 1050 ml 275 ml 8765 ml # Voids 4 # Bowel Movements 2 Exam Alert and oriented 3, no distress. Fluent speech Anicteric sclera. Lungs are clear with normal rate and effort Heart is regular without murmur gallop or rub Abdomen soft nontender, distended Extremities with 2+ edema. Skin is free of rash or lesions except venous stasis changes in the tibial areas of the legs. IVs and Medications Medications Reviewed: Medications were reviewed in detail Lab and Diagnostics Result Diagram: 02/15/17 0300 02/15/17 0300 Cardiac Echo Impressions 1. The left ventricle is not optimally visualized. The size appears at least mildly dilated. The function (with the use of Definity) appears grossly normal. 2. The right ventricle is not well visualized. 3. The prosthetic aortic valve (although not optimally visualized) appears to be functioning well (the velocities and gradient obtained on this study are less than on the previous study) 4. The mitral valve is not optimally visualized. The gradient across the valve is suggestive of moderate to severe valvular stenosis (the gradient was reported as higher on the previous study) Assessment & Plan This is a 66-year-old male with known diastolic congestive heart failure admitted for CHF exacerbation and possible early pneumonia. He has been started on IV Lasix as well as Rocephin and azithromycin for community-acquired pneumonia treatment. He has a history of aortic valve replacement by TaVR and is on chronic anticoagulation. #. Acute on chronic hypercarbic respiratory failure, POA. Unclear etiology, perhaps multifactorial. This was not really improving but stable. -Multifactorial, chest x-ray showing early pneumonia, history of CHF and possible undiagnosed COPD -Treatment as below -Continue supplemental oxygen Continue ABx as well as diuresis. Patient requires nocturnal and daytime volume ventilation. BiPAP is insufficient due to the severity of condition. OHS is primary cause of hypercapnia. JODIE is not the primary cause for the patient's hypercapnia and not the reason that this is requiring ventilator support. # Obesity hypoventilation Syndrome, POA. Not improving. We are obtaining a nephrology authorization we will fit him and titrate prior to discharge home. #. Acute on chronic diastolic HF, POA, this is slowly improving.: -Lasix 40 mg IV , will increase to TID. -Strict I's and O's, daily weights -Low sodium diet -Continue metoprolol -Echocardiogram 6 months ago showing diastolic dysfunction, normal systolic function with 60-65% LVEF We will continue aggressive diuresis. Lasix IV 3 times a day. #. Paroxysmal atrial fibrillation, just started this morning. This is rate controlled. He is on Coumadin. We will follow clinically. #. Possible community-acquired pneumonia, present on admission. This is stable. : -Continue Rocephin and azithromycin -Cultures negative #. Type II diabetes, POA. Stable.: -Medium sliding scale insulin -Holding glipizide and metformin -Diabetic diet No change to medical management This remains stable today #. History of aortic stenosis with T aVR, POA. Stable. -Continue Coumadin per pharmacy. Repeat ECHO. The patient has no clear reason for being on Coumadin however he did develop paroxysmal atrial fibrillation this morning. #. Paroxysmal atrial fibrillation, improved. We will continue to follow this to see how probable into his rhythm disturbances. #. JODIE, present on admission: POA. Clinically stable. -RT consultation for CPAP or BiPAP #. Acute on chronic renal failure, stage II, improving.: -Avoiding IV fluids in setting of congestive heart failure -Follow BMP, this is about the same. Avoid nephrotoxins and renal dose as required. We will recheck creatinine today CODE STATUS: Full code DVT prophylaxis: Fully anticoagulated with Coumadin Disposition: Independent with ADLs, likely home at discharge pending hospital course. VTE Mechanical Devices: Anti-Embolic stockings Resuscitation Status: CPR: Attempt Resuscitation Blayne Clemons MD Feb 18, 2017 10:28
[2017-02-18 12:33] LABS: Mean Corpuscular Hemoglobin 32.7 pg (27.0-35.0); Mean Corpuscular Volume 106.8 fL (81-100)
[2017-02-18 12:59] LABS: INR 2.13 ratio
--- NOTE | 2017-02-18 14:54 | NUR ---
Evaluation completed. Please go to "Notes" then click on "Assessments and Notes" (bottom left corner of screen). Then select appropriate discipline tab on top of screen.
--- NOTE | 2017-02-18 16:06 | NUR ---
Mentation/Activity Pt alert and oriented for entire shift. No episodes of confusion, although he is at times forgetful. Pt has been on 3L NC with O2 sats in mid 90s. Pt encouraged to get up to chair or edge of bed as tolerated. Pt has been minimal 1 person assist for this shift, transferring from bed to chair using FWW. Pt has been in good spirits and cooperative with all cares, makes his needs known and uses call light appropriately.
--- NOTE | 2017-02-18 19:32 | NUR ---
Substance Abuse Rehab/Recovery Patient discussed with this RN his current alcohol abuse and his desire to be sober. He shared that his son has just gone through detox and the pt would like to support his son in his sobriety. Pt is open to discussing with social work programs that they would recommend.
[2017-02-19] VITALS (10 sets, daily range): BP systolic 119–150; BP diastolic 58–73; PULSE 64–80; RESP 15–22; O2SAT 94–96
[2017-02-19] MEDS: Sodium Chloride LOK Flush 10 mL Syringe IVFLUSH SCH ×4 (00:32→20:54)
--- NOTE | 2017-02-19 03:11 | NUR ---
Respiratory: SpO2: 93% on 3L nasal cannula at start of shift. At HS, pt. requested to wear home CPAP machine. SpO2: 95-96% on home CPAP with 6L oxygen bleed in. Pt. denies SOB at rest. No overt signs or symptoms of respiratory distress. Pt. has not yet been confused this shift. Will continue to monitor.
[2017-02-19 03:23] LABS: INR 2.32 ratio
[2017-02-19] MEDS: HYDROcodone-APAP 10-325 mg PO PRN (04:34)
[2017-02-19] MEDS: Insulin LISPRO 300 Unit/3 mL Inj SUBQ SCH ×4 (07:32→20:53)
[2017-02-19] MEDS: Furosemide 10 mg/mL 4 mL Inj IVPUSH SCH ×3 (07:52→20:46)
[2017-02-19] MEDS: cefTRIAXone Inj 1,000 MG in Dextrose 5% Minibag Plus 50 ML IV SCH (07:53)
[2017-02-19] MEDS: Nystatin 100,000 Unit/Gm 15 Gm Powder TOPICAL SCH ×2 (07:53→20:48)
--- NOTE | 2017-02-19 09:14 | PCM.PNMED ---
Subjective Date of Service Feb 19, 2017 Subjective He is feeling better today. Muscles confusional last day. No untoward events overnight. He denies any confusion this morning. No cough, chest pain, palpitations, or dyspnea. No overnight events Exam Vital Signs Vital Sign - Last Date Time Temp Pulse Resp B/P Pulse Ox O2 Delivery O2 Flow Rate FiO2 02/19/17 07:42 CPAP/BIPAP 02/19/17 07:42 36.7 78 16 135/69 96 4.00 02/18/17 03:35 40 Intake and Output 02/18/17 02/18/17 02/19/17 Cumulative From/Thru 15:00 23:00 07:00 02/12/17 09:52 - 02/19/17 05:01 Intake Total 640 ml 600 ml 6570 ml Output Total 1000 ml 1000 ml 14084 ml Balance -360 ml -400 ml -4195 ml Intake Oral 640 ml 600 ml 5990 ml IV Total 580 ml Output Urine Total 1000 ml 1000 ml 34153 ml # Voids 4 # Bowel Movements 1 3 Exam Alert and oriented 3, no distress. Fluent speech Anicteric sclera. Lungs are clear with normal rate and effort Heart is regular without murmur gallop or rub Abdomen soft nontender, flat Extremities 1+ edema. Skin is free of rash or lesions. IVs and Medications Medications Reviewed: Medications were reviewed in detail Lab and Diagnostics Result Diagram: 02/18/17 1215 02/18/17 1215 Cardiac Echo Impressions 1. The left ventricle is not optimally visualized. The size appears at least mildly dilated. The function (with the use of Definity) appears grossly normal. 2. The right ventricle is not well visualized. 3. The prosthetic aortic valve (although not optimally visualized) appears to be functioning well (the velocities and gradient obtained on this study are less than on the previous study) 4. The mitral valve is not optimally visualized. The gradient across the valve is suggestive of moderate to severe valvular stenosis (the gradient was reported as higher on the previous study) Assessment & Plan This is a 66-year-old male with known diastolic congestive heart failure admitted for CHF exacerbation and possible early pneumonia. He has been started on IV Lasix as well as Rocephin and azithromycin for community-acquired pneumonia treatment. He has a history of aortic valve replacement by TaVR and is on chronic anticoagulation. #. Acute on chronic hypercarbic respiratory failure, POA. Unclear etiology, perhaps multifactorial. This was not really improving but stable. -Multifactorial, chest x-ray showing early pneumonia, history of CHF and possible undiagnosed COPD -Treatment as below -Continue supplemental oxygen We will continue diuresis and currently rates of 40 mg Lasix every 8 hours. We will discontinue antibiotics today as patient has not had a reasonable course for possible pneumonia. Patient requires nocturnal and daytime volume ventilation. BiPAP is insufficient due to the severity of condition. OHS is primary cause of hypercapnia. JODIE is not the primary cause for the patient's hypercapnia and not the reason that this is requiring ventilator support. # Obesity hypoventilation Syndrome, POA. Not improving. We are obtaining a preauthorization we will fit him with a Trilogy home ventilator and titrate prior to discharge home. #. Acute on chronic diastolic HF, POA, this is slowly improving.: We will continue aggressive diuresis. Lasix IV 3 times a day. #. Paroxysmal atrial fibrillation, just started this morning. This is rate controlled. He is on Coumadin. We will follow clinically. No changes to medical regimen. #. Possible community-acquired pneumonia, present on admission. This is improved.: -Discontinue Rocephin and azithromycin -Cultures negative #. Type II diabetes, POA. Stable.: -Medium sliding scale insulin -Holding glipizide and metformin -Diabetic diet No change to medical management This remains stable today, no changes to medical regimen. #. History of aortic stenosis with T aVR, POA. Stable. -Continue Coumadin per pharmacy. Repeat ECHO. #. JODIE, present on admission: POA. Clinically stable. -RT consultation for CPAP or BiPAP #. Acute on chronic renal failure, stage II, improving.: -Avoiding IV fluids in setting of congestive heart failure -Follow BMP, this is about the same. Avoid nephrotoxins and renal dose as required. We will recheck creatinine today CODE STATUS: Full code DVT prophylaxis: Fully anticoagulated with Coumadin Disposition: Independent with ADLs, likely home at discharge pending hospital course. VTE Mechanical Devices: Anti-Embolic stockings Resuscitation Status: CPR: Attempt Resuscitation Blayne Clemons MD Feb 19, 2017 09:14
--- NOTE | 2017-02-19 10:58 | NUR ---
IVIS signed. Crissy Ramirez [employer]
--- NOTE | 2017-02-19 15:13 | NUR ---
Skin/activity Pt skin under stomach panis appeared red, nystatin powder applied. Pt states that left side is worse. Skin appears reddened but intact. Pt has been up to chair or edge of bed for all meals. He is independent in moving in bed and needs minimal assistance. A bariatric walker has been provided and he is encourage to move about his room as he is able. The pt has been in very good spirits today and cooperative with all cares.
--- NOTE | 2017-02-19 16:13 | NUR ---
Social Work- Chemical Dependency Assessment Current Circumstances/ Reason for Referral: Pt is a 66 year old male admitted for hypercapia, hypoxia, and respiratory failure per H&P. RN made referral to [facility] regarding pt's desire to change current level of alcohol use (currently drinks approx. 12 drinks per night) History of Substance Use: Pt states that he has a history of ETOH for his entire life, since he was 18. Pt reports drinking approximately 12 drinks per day of primarily andrea and Trevor's Hard Lemonade. History of Treatment Programs: Pt completed a class through the [facility] related to drug use in 2000. Pt is unsure if this was a formal treatment program. Pt states it was helpful and contributed to his sobriety over the next two years. History of Withdrawal Symptoms: Pt denies any withdrawal symptoms. Pt has not experienced any withdrawal symptoms while hospitalized. Pt's last drinking episode was the night before hospitalization. Family History: Pt son has a history of alcohol and IVDU (opiates). Pt's son has a history of detox at [facility]. Pt's mother has a history of alcohol use in the mid . History of Sobriety and Supports: In the mid pt states that he was sober for 4-5 years after stopping cold turkey. Pt began drinking again until 2000. After pt's classes through [facility] pt remained sober from approx [id number]. Pt has had no periods of sobriety since then. Pt identifies his supports as his son, who is recently sober from alcohol and drugs, as well as his spirituality. Patient's Perception of Use- Pt would like to stop drinking, especially to support his son through sobriety. Pt is very motivated but is not confident that he will be successful with changing his drinking habits. Pt is insightful, stating that "stopping alcohol is like losing a close friend." Pt identifies a negative consequence from his drinking includes weight gain (which has contributed to his medical conditions). Pt has had no negative consequences related to law or employment. Suicide Risk Assessment: Pt has no history of mental illness. Pt denies any suicidal or homicidal ideation currently or in the past. Plan: Pt is interested in stopping his drinking. Pt is willing to accept outpt resources for chemical dependency. [facility] has provided him with these resources. SW reinforced availability of Alcoholics Anonymous, pt agreeable to this. Pt to discharge home with home health when medically stable. SW will continue to follow. RUDY Saenz
[2017-02-20] VITALS (8 sets, daily range): BP systolic 109–150; BP diastolic 54–65; PULSE 62–75; RESP 20–22; O2SAT 91–96
[2017-02-20 03:48] LABS: Mean Corpuscular Hemoglobin 33.3 pg (27.0-35.0); Mean Corpuscular Volume 104.3 fL (81-100)
[2017-02-20 03:59] LABS: INR 2.18 ratio
[2017-02-20] MEDS: HYDROcodone-APAP 10-325 mg PO PRN (04:28)
--- NOTE | 2017-02-20 07:23 | NUR ---
CPAP/Tooth Pain Pt on 4L NC while awake but while asleep needed 6-8L O2 bleed into CPAP d/t persistent O2 leak from mask. Pt monitored on [employer]NET DAT[employer] SPECIALIST. Pt given PRN [place] x1 for tooth pain, effective as pt able to fall asleep after this. Pt vitals stable. Appeared to sleep comfortably between care interventions.
[2017-02-20] MEDS: Insulin LISPRO 300 Unit/3 mL Inj SUBQ SCH ×4 (07:55→21:47)
[2017-02-20] MEDS: Sodium Chloride LOK Flush 10 mL Syringe IVFLUSH SCH ×3 (07:56→21:48)
[2017-02-20] MEDS: Furosemide 10 mg/mL 4 mL Inj IVPUSH SCH ×3 (07:56→19:54)
[2017-02-20] MEDS: Nystatin 100,000 Unit/Gm 15 Gm Powder TOPICAL SCH ×2 (07:57→19:55)
--- NOTE | 2017-02-20 08:29 | PCM.PNMED ---
Subjective Date of Service Feb 20, 2017 Subjective He is doing well. No problems overnight. No confusion. No real dyspnea. He is having good bowel movements and urination. Last leg edema. No abdominal pain or chest pain. Like to go home tomorrow. He was ambulating yesterday. No overnight events Exam Vital Signs Vital Sign - Last Date Time Temp Pulse Resp B/P Pulse Ox O2 Delivery O2 Flow Rate FiO2 02/20/17 07:46 Supplement Oxygen CPAP/BIPAP 02/20/17 06:07 36.5 63 20 134/61 91 02/20/17 00:13 6.00 02/18/17 03:35 40 Intake and Output 02/19/17 02/19/17 02/20/17 Cumulative From/Thru 15:00 23:00 07:00 02/12/17 09:52 - 02/19/17 20:40 Intake Total 1330 ml 7900 ml Output Total 1450 ml 43947 ml Balance -120 ml -4315 ml Intake Oral 1280 ml 7270 ml IV Total 50 ml 630 ml Output Urine Total 1450 ml 80086 ml # Voids 4 # Bowel Movements 1 4 Exam Alert and oriented 3, no distress. Fluent speech Anicteric sclera. Lungs are clear with normal rate and effort Heart is regular without murmur gallop or rub Abdomen soft nontender, flat Extremities are with 2+ edema Skin is free of rash or lesions. IVs and Medications Medications Reviewed: Medications were reviewed in detail Lab and Diagnostics Result Diagram: 02/20/17 0320 02/20/17 0320 Cardiac Echo Impressions 1. The left ventricle is not optimally visualized. The size appears at least mildly dilated. The function (with the use of Definity) appears grossly normal. 2. The right ventricle is not well visualized. 3. The prosthetic aortic valve (although not optimally visualized) appears to be functioning well (the velocities and gradient obtained on this study are less than on the previous study) 4. The mitral valve is not optimally visualized. The gradient across the valve is suggestive of moderate to severe valvular stenosis (the gradient was reported as higher on the previous study) Assessment & Plan This is a 66-year-old male with known diastolic congestive heart failure admitted for CHF exacerbation and possible early pneumonia. He has been started on IV Lasix as well as Rocephin and azithromycin for community-acquired pneumonia treatment. He has a history of aortic valve replacement by TaVR and is on chronic anticoagulation. #. Acute on chronic hypercarbic respiratory failure, POA. Unclear etiology, perhaps multifactorial. This was not really improving but stable. -Multifactorial, chest x-ray showing early pneumonia, history of CHF and possible undiagnosed COPD -Treatment as below -Continue supplemental oxygen We will continue diuresis and currently rates of 40 mg Lasix every 8 hours. Antibiotics have been discontinued Patient requires nocturnal and daytime volume ventilation. BiPAP is insufficient due to the severity of condition. OHS is primary cause of hypercapnia. JODIE is not the primary cause for the patient's hypercapnia and not the reason that this is requiring ventilator support. # Obesity hypoventilation Syndrome, POA. Not improving. We are obtaining a preauthorization we will fit him with a Trilogy home ventilator and titrate prior to discharge home. #. Acute on chronic diastolic HF, POA, this is slowly improving. Continue diuresis We will continue aggressive diuresis. Lasix IV 3 times a day. #. Paroxysmal atrial fibrillation, just started this morning. This is rate controlled. He is on Coumadin. We will follow clinically. No changes to medical regimen. #. Possible community-acquired pneumonia, present on admission. This is improved.: -Discontinue Rocephin and azithromycin -Cultures negative #. Type II diabetes, POA. Stable.: -Medium sliding scale insulin -Holding glipizide and metformin -Diabetic diet No change to medical management This remains stable today, no changes to medical regimen. #. History of aortic stenosis with T aVR, POA. Stable. -Continue Coumadin per pharmacy. Repeat ECHO. #. JODIE, present on admission: POA. Clinically stable. -RT consultation for CPAP or BiPAP #. Acute on chronic renal failure, stage II, improving.: -Avoiding IV fluids in setting of congestive heart failure -Follow BMP, this is about the same. Avoid nephrotoxins and renal dose as required. We will recheck creatinine today CODE STATUS: Full code DVT prophylaxis: Fully anticoagulated with Coumadin Disposition: Independent with ADLs, likely home at discharge pending hospital course. VTE Mechanical Devices: Anti-Embolic stockings Resuscitation Status: CPR: Attempt Resuscitation Blayne Clemons MD Feb 20, 2017 08:29
--- NOTE | 2017-02-20 11:37 | PCM.PHAPRO ---
Progress WARFARIN DOSING WARFARIN DOSING INDICATION: AVR (with DHF) TARGET INR Question 2 to 3 vs. 2.5-3.5 Date -Feb 13-Feb 14-Feb 15-Feb 16-Feb 17-Feb 15-Feb 16-Feb 20-Feb 21-Feb INR 3.36 3.03 1.88 1.57 1.85 1.74 2.13 2.32 2.18 INR change -0.33 -1.15 -0.31 0.28 -0.11 .39 0.19 -0.14 Warf Dose HELD 2.5 5 7.5 X1 6 x1 7.5 5 5 5 a/ Target INR not clear. D/W yellow team. p/ Target INR of 2.5. Therapeutic INR 2.18 today, give regular dose 5mg Rica Candelaria Pharm.D Feb 20, 2017 11:37
--- NOTE | 2017-02-20 17:53 | NUR ---
TRILOGY/CHF P-Patient needs improved Bi PaP machine and needs teaching on CHF. I- Team to set up Trilogy through Home Health at discharge. Heart failure booklet given and CHF teaching started by prommiguel nurse. E- Order obtained from MD for CHF nurse to do teaching. Patient states awareness of plan and Trilogy information.
[2017-02-21 03:06] LABS: INR 2.3 ratio
[2017-02-21 05:08] VITALS: BP 161/51; PULSE 61; O2SAT 95
[2017-02-21] MEDS: Insulin LISPRO 300 Unit/3 mL Inj SUBQ SCH ×4 (08:00→21:44)
[2017-02-21 08:45] VITALS: BP 126/51; PULSE 69; RESP 16; O2SAT 92
[2017-02-21] MEDS: Sodium Chloride LOK Flush 10 mL Syringe IVFLUSH SCH ×2 (09:13→16:30)
[2017-02-21] MEDS: Furosemide 10 mg/mL 4 mL Inj IVPUSH SCH ×3 (09:14→20:16)
[2017-02-21] MEDS: Nystatin 100,000 Unit/Gm 15 Gm Powder TOPICAL SCH ×2 (09:15→20:16)
[2017-02-21 11:15] VITALS: PULSE 71
[2017-02-21 11:39] VITALS: BP 123/49; PULSE 66; RESP 2; O2SAT 93
--- NOTE | 2017-02-21 11:45 | NUR ---
DC from PT; ambulate w/Nsg Pt has met all PT goals and is discharged from further PT at this time; released to ambulate w/nsg w/[id number] CGA/SBA prn 2-3x/day as pt tolerates.
--- NOTE | 2017-02-21 12:27 | PCM.PNMED ---
Subjective Date of Service Feb 21, 2017 Subjective The patient continues to feel better, but is still very weak. He still somewhat unsteady. He is still taking oxygen 4 L [id number]. He feels that he is not quite strong enough to attempt discharge home today. He denies cough. No chest pain, palpitations. His lites are still somewhat swollen. No pain. No overnight events Exam Vital Signs Vital Sign - Last Date Time Temp Pulse Resp B/P Pulse Ox O2 Delivery O2 Flow Rate FiO2 02/21/17 11:39 37.1 66 2 123/49 93 Nasal Cannula 02/21/17 11:37 3.00 02/18/17 03:35 40 Intake and Output 02/20/17 02/20/17 02/21/17 Cumulative From/Thru 14:59 22:59 06:59 02/12/17 09:52 - 02/21/17 06:23 Intake Total 756 ml 1100 ml 9756 ml Output Total 950 ml 1100 ml 20715 ml Balance -194 ml 0 ml -4509 ml Intake Oral 756 ml 1100 ml 9126 ml IV Total 630 ml Output Urine Total 950 ml 1100 ml 31492 ml # Voids 4 # Bowel Movements 1 5 Exam Alert and oriented 3, no distress. Fluent speech Anicteric sclera. Lungs are clear with normal rate and effort, some wheezing Heart is regular without murmur gallop or rub Abdomen soft nontender, distended Extremities with 1+ edema. Skin is free of rash or lesions. IVs and Medications Medications Reviewed: Medications were reviewed in detail Lab and Diagnostics Result Diagram: 02/20/17 0320 02/20/17 0320 Cardiac Echo Impressions 1. The left ventricle is not optimally visualized. The size appears at least mildly dilated. The function (with the use of Definity) appears grossly normal. 2. The right ventricle is not well visualized. 3. The prosthetic aortic valve (although not optimally visualized) appears to be functioning well (the velocities and gradient obtained on this study are less than on the previous study) 4. The mitral valve is not optimally visualized. The gradient across the valve is suggestive of moderate to severe valvular stenosis (the gradient was reported as higher on the previous study) Assessment & Plan This is a 66-year-old male with known diastolic congestive heart failure admitted for CHF exacerbation and possible early pneumonia. He has been started on IV Lasix as well as Rocephin and azithromycin for community-acquired pneumonia treatment. He has a history of aortic valve replacement by TaVR and is on chronic anticoagulation. #. Acute on chronic hypercarbic respiratory failure, POA. This likely relates primarily to obesity hypoventilation syndrome compounded by acute on chronic diastolic heart failure. He is slowly improving. We will fit him for a Trilogy and continued diuresis him until discharge which is likely going to be February 22. Patient requires nocturnal and daytime volume ventilation. BiPAP is insufficient due to the severity of condition. OHS is primary cause of hypercapnia. JODIE is not the primary cause for the patient's hypercapnia and not the reason that this is requiring ventilator support. # Obesity hypoventilation Syndrome, POA. Stable. We have obtained preauthorization we will fit him with a Trilogy home ventilator Viemed) and titrate prior to discharge home. #. Acute on chronic diastolic HF, POA, this is slowly improving. Continue diuresis with Lasix IV 40 3 times a day until discharge home and then convert to oral. #. Paroxysmal atrial fibrillation, just started this morning. This is rate controlled. He is on Coumadin. We will follow clinically. No changes to medical regimen. #. Possible community-acquired pneumonia, present on admission. This is improved.: -Discontinue Rocephin and azithromycin -Cultures negative #. Type II diabetes, POA. Stable.: This remains stable today, no changes to medical regimen. #. History of aortic stenosis with T aVR, POA. Stable. #. JODIE, present on admission: POA. Clinically stable. Patient has been using a CPAP at home but will be using a Trilogy is more comprehensive treatment for both his pre-existing OSAS as well as his recurrent respiratory failure with hypercarbia secondary to OHS. #. Acute renal failure, improved # Chronic kidney disease, stage II. Stable. #Obesity, BMI 50.1, POA. CODE STATUS: Full code DVT prophylaxis: Fully anticoagulated with Coumadin Disposition: Independent with ADLs, likely home at discharge pending hospital course. Current working plan is discharge home on February 22 with ventilator as well as home oxygen to be used around the clock. In addition the patient will benefit from home health visiting nurse. He also does have a history of all call abuse and has been strongly advised against ongoing alcohol use. He has been drinking up to 6 drinks every evening typically until he goes into a sleep state. VTE Mechanical Devices: Anti-Embolic stockings Resuscitation Status: CPR: Attempt Resuscitation Blayne Clemons MD Feb 21, 2017 12:27
--- NOTE | 2017-02-21 13:27 | NUR ---
Social Work- Readiness for Discharge Data: EMR reviewed. Pt is on day 9 of hospitalization for Hypercapia, Hypoxia and respiratory failure per H&P. PT has d/c pt from their service, encouraging pt to ambulate with nursing staff. Pt to receive Trilogy at discharge through [facility]. SW has provided CD resources. Pt has O2 at home. Pt to discharge home with Katie COY RN PT and son to transport via POV. F2F completed. SW will continue to follow. Assessment: Pt who would benefit from Katie COY RN PT. Plan: Pt to discharge home with Katie COY RN PT. F2F completed. Pt to discharge home with Katie COY RN PT and son to transport via POV. SW will continue to follow. RUDY Saenz
--- NOTE | 2017-02-21 13:54 | PCM.PHAPRO ---
Progress WARFARIN DOSING WARFARIN MAINTENANCE DOSING INDICATION: AVR (with DHF) TARGET INR Question 2 to 3 vs. 2.5-3.5 Date -Feb 13-Feb 14-Feb 15-Feb 16-Feb 17-Feb 15-Feb 16-Feb 20-Feb 21-Feb INR 3.36 3.03 1.88 1.57 1.85 1.74 2.13 2.32 2.18 2.30 INR change -0.33 -1.15 -0.31 0.28 -0.11 .39 0.19 -0.14 0.12 Warf Dose HELD 2.5 5 7.5 X1 6 x1 7.5 5 5 5 5 a/ Target INR not clear. D/W yellow team. p/ Target INR of 2.30. Therapeutic INR 2.18 today, give regular dose 5mg Rica Candelaria Pharm.D Feb 21, 2017 13:54
--- NOTE | 2017-02-21 14:31 | NUR ---
Pt status Denies needs at this time. No reported pain. Oxygen titrated down to 2L 02 per NC while awake, CPAP with 6 to 8L at sleep. Oxygen saturation maintained >92%. Denies SOA. Ambulated halls with SBA and walker, tolerating activity with no s/s of distress. Vital signs stable. Lasix as scheduled. Will continue to monitor.
[2017-02-21 17:28] VITALS: BP 119/45; PULSE 69; RESP 17; O2SAT 94
--- NOTE | 2017-02-21 18:30 | NUR ---
spiritual care: follow up conversational visit. pt offered updates, coping, hopes for better mobility and health.
[2017-02-21 19:57] VITALS: BP 136/68; PULSE 74; RESP 20; O2SAT 95
[2017-02-22 00:10] VITALS: BP 149/75; PULSE 69; RESP 20; O2SAT 91
[2017-02-22] MEDS: Sodium Chloride LOK Flush 10 mL Syringe IVFLUSH SCH ×2 (00:27→09:56)
[2017-02-22 00:35] VITALS: PULSE 60
[2017-02-22 03:21] LABS: INR 2.27 ratio
[2017-02-22 04:13] VITALS: BP 175/66; PULSE 70; RESP 20; O2SAT 93
--- NOTE | 2017-02-22 06:46 | NUR ---
sleep pt slept pretty well this shift, pt voiding 1050cc, pt denies any pain or SOB, on bipap with 6L bleed in SpO2 greater then 92%
[2017-02-22] MEDS: Insulin LISPRO 300 Unit/3 mL Inj SUBQ SCH (08:00)
[2017-02-22 08:21] VITALS: BP 147/75; PULSE 82; RESP 18; O2SAT 93
[2017-02-22] MEDS: Furosemide 10 mg/mL 4 mL Inj IVPUSH SCH (09:55)
[2017-02-22] MEDS: Nystatin 100,000 Unit/Gm 15 Gm Powder TOPICAL SCH (09:57)
--- NOTE | 2017-02-22 10:25 | PCM.DIMED ---
Discharge Instructions Date of Service Feb 22, 2017 Dates of Hospitalization Feb 12, 2017 at 13:45 Discharge Diagnosis Discharge Diagnosis #1 Acute on chronic respiratory failure with hypercarbia #2 Obesity hypoventilation syndrome - Patient requires nocturnal and daytime volume ventilation. BiPAP is insufficient due to the severity of condition. OHS is primary cause of hypercapnia. JODIE is not the primary cause for the patient's hypercapnia and not the reason that this is requiring ventilator support. 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 Diet Diabetic, Other (patient is strongly encouraged to lose weight by portion control and limiting snacks and sodas) Activity Other (use Trilogy a AVAP respiratory device when sleeping at night and at rest during the day) Patient Instructions Follow-up Provider: Doni Shaver MD Follow-up with PCP in: 1 week Catracho Calderón MD Feb 22, 2017 10:25
--- NOTE | 2017-02-22 10:34 | NUR ---
Social Work: Discharge Data: Pt is on day 10 of hospitalization. EMR reviewed. D/C orders are in. VISION REHABILITATION THERAPIST notified Katie COY of pt discharging today, F2F ready for them to chart picker. Trilogy set up through [facility], VISION REHABILITATION THERAPIST spoke with Edie Mendez, states she was in to see pt yesterday and they are now aware of him going home today. CD resources previously given. No further d/c planning needs at this time. VISION REHABILITATION THERAPIST will continue to follow if needs arise. Assessment: Pt who is independent at baseline. Plan: Pt will d/c home today via POV with Katie COY RN and trilogy with [facility]. CD resources previously given. Home O2 previously set up. No further d/c planning needs at this time. VISION REHABILITATION THERAPIST will continue to follow if needs arise. RUDY Lezama
[2017-02-22 10:35] VITALS: PULSE 72
--- NOTE | 2017-02-22 12:32 | NUR ---
O2 needs Pt has mild SOB with activity, tolerating trips to well. pt on 2L NC during day SPO2 93% and his own cpap at HS with oxygen bleed in. Trialed off O2 this AM. SPO2 83-85% on RA. Discussed discharge with RT to ensure home will be equipped for pt O2 needs.
--- NOTE | 2017-02-22 14:36 | NUR ---
Discharge Pt discharged home today at 14:39. Pt off floor via wheelchair in the company of his son and the nurse. Pt provided with follow up instructions and education materials on heart healthy diet. discharge delayed so RT could confirm that pt will have his O2 needs covered at home.
--- NOTE | 2017-02-22 18:34 | PCM.DC.MED ---
Discharge Summary Date of Service Feb 22, 2017 Dates of Hospitalization Date of Hospital Admission Feb 12, 2017 at 13:45 Date of Discharge: Feb 22, 2017 Providers: Admitting Physician: Mario Faustin DO Primary Care Physician: Doni Shaver MD Attending Physician: Mario Faustin DO Diagnosis at Time of Discharge Diagnosis at Time of Discharge #1 Acute on chronic respiratory failure with hypercarbia #2 Obesity hypoventilation syndrome - Patient requires nocturnal and daytime volume ventilation. BiPAP is insufficient due to the severity of condition. OHS is primary cause of hypercapnia. JODIE is not the primary cause for the patient's hypercapnia and not the reason that this is requiring ventilator support. 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 Cardiac Echo Impression 1. The left ventricle is not optimally visualized. The size appears at least mildly dilated. The function (with the use of Definity) appears grossly normal. 2. The right ventricle is not well visualized. 3. The prosthetic aortic valve (although not optimally visualized) appears to be functioning well (the velocities and gradient obtained on this study are less than on the previous study) 4. The mitral valve is not optimally visualized. The gradient across the valve is suggestive of moderate to severe valvular stenosis (the gradient was reported as higher on the previous study) Brief History History of Present Illness (per admission note): This is a 66-year-old male with a past medical history of congestive heart failure, aortic stenosis, diabetes, obstructive sleep apnea and pacemaker. He has been struggling with shortness of breath for about 2 months but significantly worse over the last 2 weeks with increase in dyspnea on exertion as well as orthopnea. Onset was gradual and he has been seen by his primary care physician who instructed him to stay away from salt but no significant medication changes. 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 He denies any cough, no fevers or chills, no chest pain. He recently had his metoprolol increased from 100-150 mg twice a day, and he was also changed from by mouth bumex to torsemide about 2 months ago. He has Charcot's joint in bilateral lower extremities and has foot prostheses. He is independent with his ADLs but has continuing periodic infections of his feet and has no sensation bilaterally. He denies any headaches dizziness abdominal pain, diarrhea constipation, dysuria no known current infections. No increased anxiety or depression. Hospital Course #. Acute on chronic hypercarbic respiratory failure, POA. This likely relates primarily to obesity hypoventilation syndrome compounded by acute on chronic diastolic heart failure. We ordered a Trilogy and home oxygen, which she appears to need continuously. He was diuresed aggressively and net fluid balance was -10 kg over course of hospitalization. # Obesity hypoventilation Syndrome, POA. The patient requires nocturnal and daytime volume ventilation. BiPAP is insufficient due to the severity of condition. OHS is primary cause of hypercapnia. JODIE is not the primary cause for the patient's hypercapnia and not the reason that this is requiring ventilator support. We have obtained preauthorization we will fit him with a Trilogy home ventilator Viemed) and titrate prior to discharge home. #. Acute on chronic diastolic HF, POA, this is slowly improving. Acute diastolic heart failure likely due to hypoxic respiratory failure from OHS. He received Lasix IV 40 three times a day. Resume his baseline oral Lasix at time of discharge #. Paroxysmal atrial fibrillation, just started this morning. This is rate controlled. He is on Coumadin. No changes to medical regimen. #. Possible community-acquired pneumonia, present on admission. This is improved. Discontinue Rocephin and azithromycin for 5 days. Cultures negative #. Type II diabetes, POA. Stable.This remains stable today, no changes to medical regimen. #. History of aortic stenosis with T aVR, POA. Stable. #. Acute renal failure, improved # Chronic kidney disease, stage II. Serum creatinine peaked at 1.81, likely due to acute cardiorenal syndrome. Serum creatinine was 1.1 at time of discharge # Obesity, BMI 50.1, POA. The patient was counseled to seek weight reduction through portion control and elimination of snacking, as part of his therapy for obesity related respiratory failure Exam Vital Signs (Last) Date Time Temp Pulse Resp B/P Pulse Ox O2 Delivery O2 Flow Rate FiO2 02/22/17 10:35 72 02/22/17 08:21 36.7 18 147/75 93 Nasal Cannula 2.50 02/18/17 03:35 40 Exam General: Obese gentleman sitting in chair, no acute distress HEENT: sclerae anicteric, oral mucosa moist Neck: no apparent JVD Chest: Generally clear to auscultation Cardiac: S1S2, no murmur Abdomen: Obese, BS normal, non-tender Neuro: A&O, cranial nerves symmetric, motor strength 5/5. Test 02/12/17 10:10 02/12/17 15:38 02/13/17 02:40 02/14/17 03:55 Activated Partial Thromboplast Time 40.7sec (22.8-33.0) D-Dimer < 0.50mg/L FEU (<0.50) Lactic Acid Level 1.9mmol/L (0.4-2.0) Troponin T < 0.010ug/L (0.0-0.011) Procalcitonin 0.12ng/mL (0.00-0.08) Thyroid Stimulating Hormone (TSH) 1.670uIU/mL (0.450-4.500) Urine Color Yellow (YELLOW) Urine Appearance Clear (CLEAR,HAZY) Urine pH 5.0 (5.0-8.0) Urine Specific [place] 1.020 (1.003-1.035) Urine Protein Negativemg/dL (NEG,TRACE) Urine Glucose (UA) Negativemg/dL (NEGATIVE) Urine Ketones Negativemg/dL (NEGATIVE) Urine Occult Blood Negative (NEGATIVE) Urine Nitrite Negative (NEGATIVE) Urine Bilirubin Negative (NEGATIVE) Urine Urobilinogen Normalmg/dL (NORMAL) Urine Leukocyte Esterase Negative (NEGATIVE) Urine RBC 0-2/hpf (0-2) Urine WBC 0-5/hpf (0-5) Urine Epithelial Cells Few/hpf (NONE-MOD) Urine Crystals None seen (NONE SEEN) Urine Bacteria Few/hpf (NONE-FEW) Urine Hyaline Casts Occasional/lpf (NONE) Urine Granular Casts None seen (NONE SEEN) Urine Waxy Casts None seen (NONE SEEN) Urine Red Blood Cell Casts None seen (NONE SEEN) Urine White Blood Cell Casts None seen (NONE SEEN) Urine Mucus Present (None Seen) Urine Trichomonas None seen (NONE SEEN) Urine Yeast None (NONE SEEN) Urinalysis Comment None Urine Culture Reflexed Not indicated Hemoglobin A1c 6.2% (4.8-5.6) Triglycerides Level 215mg/dL (0-149) Cholesterol Level 146mg/dL (100-199) LDL Cholesterol, Calculated 64.000mg/dL (0-99) VLDL Cholesterol 43.000mg/dL HDL Cholesterol 39mg/dL (>39) Cholesterol/HDL Ratio 3.74 (0.0-4.4) Hold Martinez Top Tube Received (Received) Neutrophils (%) (Auto) 75% (40-74) Lymphocytes (%) (Auto) 15% (14-46) Monocytes (%) (Auto) 5% (4-12) Eosinophils (%) (Auto) 5% (0-5) Basophils (%) (Auto) 0% (0-3) Test 02/15/17 03:00 02/18/17 12:15 02/20/17 03:20 02/22/17 02:35 Magnesium Level 2.5mg/dL (1.6-2.6) Pro-B-Type Natriuretic Peptide 6022pg/mL (0-376) Total Bilirubin 0.4mg/dL (0.0-1.2) Aspartate Amino Transf (AST/SGOT) 33U/L (0-50) Alanine Aminotransferase (ALT/SGPT) 23U/L (0-44) Alkaline Phosphatase 90U/L (25-160) Total Protein 6.5g/dL (6.4-8.4) Albumin 3.4g/dL (3.4-5.0) White Blood Count 7.5th/mm3 (3.8-10.1) Red Blood Count 4.14mil/mm3 (4.40-5.80) Hemoglobin 13.8g/dL (13.8-17.2) Hematocrit 43.2% (41.0-50.0) Mean Corpuscular Volume 104.3fL (81-100) Mean Corpuscular Hemoglobin 33.3pg (27.0-35.0) Mean Corpuscular Hemoglobin Concent 31.9% (32.0-37.0) Red Cell Distribution Width 15.2% (12.3-15.4) Platelet Count 221bil/L (150-400) Sodium Level 142mEq/L (134-144) Potassium Level 4.5mEq/L (3.5-5.2) Chloride Level 95mEq/L (97-108) Carbon Dioxide Level 36mmol/L (18-29) Blood Urea Nitrogen 28mg/dL (8-27) Creatinine 1.10mg/dL (0.76-1.27) Estimat Glomerular Filtration Rate 71mL/min (>59) Glucose Level 128mg/dL (60-99) Calcium Level 9.6mg/dL (8.5-10.1) Prothrombin Time 24.7sec (8.1-12.5) Prothromb Time International Ratio 2.27ratio Discharge Medications Discharge Medications Albuterol HFA (Proair HFA) 8.5 Gm Hfa.aer.ad 2 PUFFS INHALATION BID (Reported) Allopurinol (Allopurinol) 100 Mg Tablet 100 MG PO DAILY (Reported) Bumetanide (Bumetanide) 1 Mg Tablet 1 MG PO DAILY (Reported) Gabapentin (Gabapentin) 300 Mg Capsule 300 MG PO TID (Reported) Gemfibrozil (Lopid) 600 Mg Tablet 600 MG PO BID (Reported) Glipizide (Glipizide) 10 Mg Tablet 10 MG PO AM (Reported) Magnesium Oxide (Magnesium Oxide) 400 Mg Tablet 400 MG PO BID (Reported) Metformin (Metformin) 500 Mg Tablet 500 MG PO BID (Reported) Metoprolol Tartrate (Metoprolol Tartrate) 100 Mg Tablet 100 MG PO BID Prescribed by: ROMERO LANIER MD Simvastatin (Simvastatin) 20 Mg Tablet 20 MG PO HS (Reported) Torsemide (Torsemide) 20 Mg Tablet 20 MG PO BID (Reported) Warfarin Sodium (Warfarin Sodium) 5 Mg Tablet 5 MG PO E[place],Mo,Tu,Th,Fr,Sa ( Reported) Warfarin Sodium (Warfarin Sodium) 2.5 Mg Tablet 2.5 MG PO DAILY (Reported) As needed Hydrocodone-Acetaminophen 10-325 mg (Hydrocodone-Acetaminophen 10-325 mg) 1 Each Tablet 1 TABLET PO Q6H PRN PRN For Pain (Reported) Metoprolol Tartrate (Metoprolol Tartrate) 25 Mg Tablet 25 MG PO DAILY PRN PRN palpitations (Reported) Additional med instructions Previous medications were continued unchanged. Followup Plan Disposition: Home Discharge Diet: Diabetic, Other (patient is strongly encouraged to lose weight by portion control and limiting snacks and sodas) Discharge Activity: Other (use Trilogy a AVAP respiratory device when sleeping at night and at rest during the day) Follow-up Provider: Doni Shaver MD Follow-up with PCP in: 1 week Time spent 35 minutes copies to: Doni Shaver MD, Jeffrey W MD Feb 22, 2017 11:14
== END 2017-02-22 14:35 | disposition home health service (06) | DRG 189 ==
LOC: SED 09:48 → CCU 13:45 → PCC 18:28
PROVIDERS: ADMIT Family Medicine; ATTEND Family Medicine
PROC: 4A033R1 Measurement of Arterial Saturation, Peripheral, Percutaneous Approach (ICD-10-PCS; principal; 2017-02-12)
PROC: 5A09357 Assistance with Respiratory Ventilation, Less than 24 Consecutive Hours, Continuous Positive Airway Pressure (ICD-10-PCS; 2017-02-12)
DX: J96.22 Acute and chronic respiratory failure with hypercapnia (principal); I50.33 Acute on chronic diastolic (congestive) heart failure; J18.9 Pneumonia, unspecified organism; Z68.43 Body mass index [BMI] 50.0-59.9, adult; A52.16 Charcot's arthropathy (tabetic); N17.9 Acute kidney failure, unspecified; E66.2 Morbid (severe) obesity with alveolar hypoventilation; Z79.01 Long term (current) use of anticoagulants; Z95.0 Presence of cardiac pacemaker; Z95.2 Presence of prosthetic heart valve; G47.33 Obstructive sleep apnea (adult) (pediatric); E11.9 Type 2 diabetes mellitus without complications; J44.9 Chronic obstructive pulmonary disease, unspecified; N18.2 Chronic kidney disease, stage 2 (mild); I12.9 Hypertensive chronic kidney disease with stage 1 through stage 4 chronic kidney disease, or unspecified chronic kidney disease; J96.01 Acute respiratory failure with hypoxia; I48.0 Paroxysmal atrial fibrillation

== ENCOUNTER 2017-03-24 14:00 | Inpatient (IN) | payer MEDICARE, OTHER ==
[~2017-03-24] VITALS: Ht 182.9 cm; Wt 172.2 kg
[~2017-03-24 14:00] MED LIST changes: +BUME1TAB4 PO; -FURO-128 PO; +HYDR-3740 PO; +TORS20TA3 PO; +WARF2.5T82 PO; -WARF7.5T4 PO
[2017-03-24 14:12] VITALS: BP 114/76; PULSE 65; RESP 30; O2SAT 94
--- NOTE | 2017-03-24 15:40 | ED.REPORT ---
HPI-General Illness Date of Service March 24, 2017 ED Provider: Dr. Benitez Pt is a 66 y/o male w/ a hx of HTN, CHF, severe aortic stenosis s/p TAVR, NIDDM , hyperlipidemia, renal insufficiency, prev PR, morbid obesity, JODIE on CPAP, presenting to the ED c/o SOB which has been worsening for the past few days. The patient was recently admitted here about 2 weeks ago for pneumonia and hypercarbic respiratory failure. He was sent home with plan for 3-way trilogy CPAP and 3L of home O2 who has a course of outpatient antibiotics which he states that he is finished. He states he has not been using his 3-way trilogy CPAP at night because he does not feel that it fits correctly. He states he has never been diagnosed with COPD. Pt c/o associated fatigue and generalized weakness. He lost his balance today and fell without head injury or change in LOC. He says that he has a home oxygen meter and that he has been experiencing saturation is at the 70s with ambulation spite wearing his home oxygen. He denies new cough, fever, CP, lightheadedness, syncope. He states that he feels extremely fatigued, generally weak and unsafe going home. Nursing Notes Stated Complaint: SOB Chief Complaint: Respiratory Complaints Nursing Notes Reviewed: Yes Allergies: Coded Allergies: No Known Allergies (Verified Allergy, Unknown, 02/12/17) Uncoded Allergies: POLLENS (Allergy, Unknown, 04/19/14) Scheduled Albuterol HFA (Proair HFA) 8.5 Gm Hfa.aer.ad 2 PUFFS INHALATION BID Allopurinol (Allopurinol) 100 Mg Tablet 100 MG PO DAILY Gabapentin (Gabapentin) 300 Mg Capsule 300 MG PO TID Gemfibrozil (Lopid) 600 Mg Tablet 600 MG PO BID Glipizide (Glipizide) 10 Mg Tablet 10 MG PO AM Magnesium Oxide (Magnesium Oxide) 400 Mg Tablet 400 MG PO BID Metformin (Metformin) 500 Mg Tablet 500 MG PO BID Metoprolol Tartrate (Metoprolol Tartrate) 100 Mg Tablet 100 MG PO BID Simvastatin (Simvastatin) 20 Mg Tablet 20 MG PO HS Torsemide (Torsemide) 20 Mg Tablet 40 MG PO BID Warfarin Sodium (Warfarin Sodium) 5 Mg Tablet 5 MG PO MONDAY-MONDAY Warfarin Sodium (Warfarin Sodium) 2.5 Mg Tablet 2.5 MG PO MONDAYS Scheduled PRN Metoprolol Tartrate (Metoprolol Tartrate) 25 Mg Tablet 25 MG PO DAILY PRN PRN palpitations General Time Seen by MD: 15:39 Chief Complaint Other Hx Obtained From: Patient Arrived By: Walk-in Sudden in Onset?: No Onset Occurred: 3 days ago Symptom Duration: Since onset Severity: Current: No pain currently Severity: Maximum: No pain Recent Healthcare: Recent doctor visit, Recent testing, Previous diagnosis, Prior workup Past Medical History Past Medical History Notes: PCP: Dr. Shaver Past Medical History Obesity (BMI 53) HTN CHF w/ preserved EF, ho valvular disease s/p TAVR 01/2016 -> anticoagulated, on Warfarin NIDDM Hyperlipidemia Aortic stenosis (now s/p TAVR) GERD Sleep apnea Charcot foot ho PR ho JOSE/renal insufficiency Anxiety Depression Past Surgical History Vasectomy January 2016, aortic valve replacement at the (TAVR) left foot surgery Reports: Pacemaker insertion Family History Noncontributory Smoking History Never Smoker Social History Alcohol Use: "Social" Drug Use: Denies drug use Other Social History: Local resident Ambulatory Status Cane Review of Systems Full Review of Systems Constitutional: Reports: Fatigue, Weakness - generalized, Denies: Chills, Fever Respiratory: Reports: Shortness of breath, Denies: Non-productive cough Cardiovascular: Denies: Chest pain Neurologic: Denies: Lightheaded, Syncope Complete sys rev & neg: except as marked. Physical Exam Vital Signs Vital Signs Date Time Temp Pulse Resp B/P Pulse Ox O2 Delivery O2 Flow Rate FiO2 03/24/17 18:51 96 36 03/24/17 14:12 36.3 65 30 114/76 94 Room Air Initial VS: Reviewed, Vital signs abnormal Head / Eyes: Atraumatic, Normocephalic, PERRL ENT: Mucous membranes moist, Conjunctiva normal, No scleral icterus Neck: Supple, Full range of motion Cardiovascular: Regular rate & rhythm, Heart sounds normal, Intact distal pulses Abdomen / GI: Soft, Non-tender Skin: Warm, Dry, No cyanosis Neurologic: Alert, Oriented, Nonfocal Psychiatric: Mood/affect normal, Behavior normal, Normal thought content General/Constitutional: Awake, Alert, No acute distress, Cooperative, Not toxic appearing Respiratory / Chest: Atraumatic, Breath sounds = bilat, No respiratory distress , No rales, No rhonchi, No wheezing, No retractions, No stridor Diminished breath sounds bilaterally Lower Extremity / Pelvis / MS: No deformity, Neurologic intact, Vascular intact Bilateral ankle braces present Interpretation & Diagnostics Lab Results Interpretation Result Diagram: 03/24/175 03/24/17 1655 Test 03/24/17 16:55 White Blood Count 12.9th/mm3 (3.8-10.1) Red Blood Count 3.97mil/mm3 (4.40-5.80) Hemoglobin 13.1g/dL (13.8-17.2) Hematocrit 41.7% (41.0-50.0) Mean Corpuscular Volume 105.0fL (81-100) Mean Corpuscular Hemoglobin 33.0pg (27.0-35.0) Mean Corpuscular Hemoglobin Concent 31.4% (32.0-37.0) Red Cell Distribution Width 15.0% (12.3-15.4) Platelet Count 295bil/L (150-400) Neutrophils (%) (Auto) 79.6% (40-74) Lymphocytes (%) (Auto) 11.2% (14-46) Monocytes (%) (Auto) 7.8% (4-12) Eosinophils (%) (Auto) 0.7% (0-5) Basophils (%) (Auto) 0.4% (0-3) Sodium Level 137mEq/L (134-144) Potassium Level 5.6mEq/L (3.5-5.2) Chloride Level 92mEq/L (97-108) Carbon Dioxide Level 36mmol/L (18-29) Blood Urea Nitrogen 49mg/dL (8-27) Creatinine 1.69mg/dL (0.76-1.27) Estimat Glomerular Filtration Rate 43mL/min (>59) Glucose Level 76mg/dL (60-99) Lactic Acid Level 0.9mmol/L (0.4-2.0) Calcium Level 9.2mg/dL (8.5-10.1) Magnesium Level 2.9mg/dL (1.6-2.6) Total Bilirubin 0.4mg/dL (0.0-1.2) Aspartate Amino Transf (AST/SGOT) 23U/L (0-50) Alanine Aminotransferase (ALT/SGPT) 20U/L (0-44) Alkaline Phosphatase 116U/L (25-160) Troponin T < 0.010ug/L (0.0-0.011) Pro-B-Type Natriuretic Peptide 62755kb/mL (0-376) Total Protein 7.1g/dL (6.4-8.4) Albumin 3.5g/dL (3.4-5.0) ECG Interpretation ECG Interpretation: Sinus rhythm rate 60 LAD LBBB When compared to prior dated 02/12/17 tehre are no acute changes present Time: 16:36 Interpreted by: ED physician Normal ECG Interpretation: No acute ischemic changes X-Ray Chest Interpretation Chest Xray Interpretation: IMPRESSION: Persistent small pleural effusions and bibasilar airspace opacities consistent with compressive atelectasis versus pneumonia. Recommend clinical correlation and followup to resolution. Dictated by: Kushal Gold RRA Interpreted: Shima Abraham MD on 03/24/2017 at 16:57 Transcribed by: MARCELLO on 03/24/2017 at 16:58 Approved by: Shima Abraham MD, PhD on 03/24/2017 at 16:59 View: Portable, 1 view Interpretation / Wet Read by: Interpret - Radiologist Re-Eval/Medical Decision Med Decision/Clinical Course Pt is a 66 y/o male w/ a hx of HTN, CHF, severe aortic stenosis s/p TAVR, NIDDM , hyperlipidemia, renal insufficiency, prev PR, morbid obesity, JODIE on CPAP, presenting to the ED c/o SOB which has been worsening for the past few days. The patient was recently admitted here about 2 weeks ago for pneumonia and hypercarbic respiratory failure. He was sent home with plan for 3-way trilogy CPAP and 3L of home O2 who has a course of outpatient antibiotics which he states that he is finished. He states he has not been using his 3-way trilogy CPAP at night because he does not feel that it fits correctly. He states he has never been diagnosed with COPD. Pt c/o associated fatigue and generalized weakness. He lost his balance today and fell without head injury or change in LOC. He says that he has a home oxygen meter and that he has been experiencing saturation is at the 70s with ambulation spite wearing his home oxygen. He denies new cough, fever, CP, lightheadedness, syncope. He states that he feels extremely fatigued, generally weak and unsafe going home. Upon arrival the patient appears to be in significant respiratory distress. Oxygen saturation down to the 80s despite receiving 4 L by nasal cannula. He is otherwise afebrile with stable vital signs. Chest x-ray was obtained as below: Persistent small pleural effusions and bibasilar airspace opacities consistent with compressive atelectasis versus pneumonia. Recommend clinical correlation and followup to resolution. Laboratory studies notable as below: CBC: Leukocytosis of 12.9 increased from prior, stable HCT of 41.7 CMP: BUN of 49 up from prior of 28, creatinine acutely elevated to 1.69 up from 1.1. Total bilirubin elevated at 2.9. Lactic acid 0.9 BNP: 13,357 Troponin negative INR: 2.2 AB.266 / 88 / 94.8 / 38.7 / 8.5 Given given the patient's worsening respiratory status, hypercarbic respiratory failure with acidosis and possible pneumonia on chest x-ray pt given IV Vancomycin and Zosyn for hospital acquired pneumonia. The patient was started on BiPAP. Judicious use of IV fluids given elevated BNP, concern for associated congestive heart failure. 2 sets of blood cultures have been obtained. Note patient does have acute kidney injury and we will trend his renal function. Plan for repeat ABG after initiation of BiPAP. Patient discussed with admitting hospitalist and transferred to CCU for further management. Of note patient has a history of severe alcohol withdrawal and will be placed on CIWA though at this time he does not appear to be withdrawing significantly. Time of Eval: 18:18 Re-Evaluation/Progress Note: Pt rechecked. Informed pt of need for admission. Pt understands and agrees with plan for admission. All questions addressed. Consultation : Referral / Consult Name: Ronny Antony MD Consulted With: Hospitalist Call Returned at: 19:20 Buyer Grain: Will see patient, Agrees with eval, Agrees with plan, Accepts admit Counseled Regarding: Diagnosis, Lab results, Need for admission Discharge & Departure Primary Impression: Acute respiratory failure with hypoxia Additional Impressions: Hospital-acquired pneumonia Hypercapnic respiratory failure Chronicity: acute Qualified Code: J96.02 - Acute respiratory failure with hypercapnia Respiratory acidosis Respiratory distress Noncompliance with CPAP treatment Alcohol abuse Disposition: ADMITTED TO HOSPITAL Discharge Condition All VS Reviewed: Yes Condition: Stable Referrals: Doni Shaver MD (PCP) Crit Care Except Billable Proc Time Spent: 165-194 minutes Services Performed: Patient management by me, Time spent at bedside, Reviewing test results, Reviewing imaging, Discussing patient care, Documentation in record, Time with fam/surrogate Scribe Attestation Portions of this note were transcribed by Bruce Quevedo. I, Dr. Benitez personally performed the history, physical exam and medical decision-making; I reviewed and confirmed the accuracy of the information in the transcribed note. Signed by Pete Arriaga, 03/24/17 - 1630 copies to: Doni Shaver MD, Beck O MD March 24, 2017 15:40 BRUCE QUEVEDO March 24, 2017 16:26
--- NOTE | 2017-03-24 16:59 | DRSVH ---
PROCEDURE: X-RAY CHEST ONE VIEW, PORTABLE ([id number]) INDICATIONS: shortness of breath TECHNIQUE: One view of the chest was acquired. COMPARISON: [facility], CR, XR CHEST 1VW (PORTABLE), 02/12/2017, 10:12. [facility], CR, XR CHEST 1VW (PORTABLE), 08/31/2016, 10:56. [facility], CR, XR CHEST 2VW, , 16:20. [facility], CR, XR CHEST 1VW (PORTABLE), 02/15/2017, 11:02. FINDINGS: Surgical changes and devices: Stable position of left cardiac pacer. Lungs and pleura: No pneumothorax. Persistent bibasilar airspace opacities and small pleural effusi ons present. Mediastinum: Mediastinal contours appear normal. Heart size is enlarged. Bones and chest wall: No suspicious bony lesions. Overlying soft tissues appear unremarkable. IMPRESSION: Persistent small pleural effusions and bibasilar airspace opacities consistent with compr essive atelectasis versus pneumonia. Recommend clinical correlation and followup to resolution. Dictated by: Kushal Gold RRA Interpreted: Shima Abraham MD on 03/24/2017 at 16:57 Transcribed by: MARCELLO on 03/24/2017 at 16:58 Approved by: Shima Abraham MD, PhD on 03/24/2017 at 16:59
[2017-03-24 17:15] LABS: BASOPHILS % (AUTO) 0.4 % (0-3); EOSINOPHILS % (AUTO) 0.7 % (0-5); MONOCYTES % (AUTO) 7.8 % (4-12); NEUTROPHILS % (AUTO) 79.6 % (40-74); Platelet Count 295 bil/L (150-400)
[2017-03-24 17:46] LABS: TROPONIN T < 0.010 ug/L (0.0-0.011)
[2017-03-24 17:56] LABS: Magnesium 2.9 mg/dL (1.6-2.6)
--- NOTE | 2017-03-24 18:02 | ABG ---
DateTimeAnalyzed 17:58:00 -_ pH ____7.266 - 7.350 7.450 pCO2 ___88.0__ -mmHg 35.0 45.0 pO2 ___94.8__ -mmHg 69.0 116 HCO3- ___38.7__ -mmol/L 22.0 26.0 ABE ____8.5__ -mmol/L -2.0 2.0 tHb ___13.3__ -g/dL O2Hb ___95.0__ -% COHb ____1.1__ -% MetHb ____1.0__ -% sO2 ___97.0__ -% 25.0 FIO2 ___36.0__ -% Drawn By as - Date/Time Notified____ 18:02:00 -_ Spontaneous_RR ___20.0__ -b/min Liter_Flow ____4.0__ -L/min Oxygen Device 1 __CANNULA - Notified By AMS - Notified Whom DR [address] - B 759 -mmHg tO2 ___17.8__ -Vol% Blayne test _Positive -
[2017-03-24] MEDS ORDERED: Vancomycin Dose per Pharmacist XX ONE (18:20)
[2017-03-24] MEDS ORDERED: Piperacillin-Tazo 3.375 Gm Inj 3.375 GM in Dextrose 5% Minibag Plus 50 ML IV ONE (18:20)
[2017-03-24] MEDS ORDERED: Alum-Mag Hydrox-Simeth 30 mL Suspension PO PRN ×2 (18:20→19:30)
[2017-03-24] MEDS ORDERED: Ondansetron 2 mg/mL 2 mL Inj IVPUSH PRN (18:20)
[2017-03-24] MEDS ORDERED: Vancomycin Inj 2,250 MG in 0.9% Sodium Chloride 500 ML IV ONE (18:25)
[2017-03-24 18:51] VITALS: O2SAT 96
[2017-03-24] MEDS ORDERED: Polyethylene Glycol (PEG) 17 Gm Powder PO PRN (19:30)
--- NOTE | 2017-03-24 19:54 | PCM.HPMED ---
Subjective Date of Service March 24, 2017 Primary Provider: Admitting Physician: Primary Care Physician: Doni Shaver MD Attending Physician: Chief Complaint: Shortness of breath. History of Present Illness: Mr. Yahir Alatorre is a pleasant 66-year-old gentleman admitted to [facility] for shortness of breath. He reports he is on trilogy of home but does not use it and has been declining daily since his recent discharge in February. He states that he wakes up tired every day and that he called his son and his son talked him into coming to the hospital. The patient was recently admitted here about 2 weeks ago for pneumonia and hypercarbic respiratory failure. He was sent home with plan for 3-way trilogy CPAP and 3L of home O2 who has a course of outpatient antibiotics which he states that he is finished. He states he has not been using his 3-way trilogy CPAP at night because he does not feel that it fits correctly Pt c/o associated fatigue and generalized weakness. He lost his balance today and fell without head injury or change in LOC. He says that he has a home oxygen meter and that he has been experiencing saturation is at the 70s with ambulation spite wearing his home oxygen.He denies fevers, chills, cough, chest pain, nausea, vomiting, abdominal pain, dysuria. He reports some dizziness and near syncopal episode today, shortness of breath and fatigue. He reports one week of diarrhea that has since resolved. He has a past medical history significant for hypertension, CHF, severe aortic stenosis status post TAVR last year, hyperlipidemia, NIDDM, renal insufficiency , previous GA, morbid obesity, obesity hypoventilation syndrome, JODIE with an compliant CPAP use, alcohol use disorder. He is a nonsmoker never smoker. He reports significant alcohol intake of 8-9 drinks similar to andrea or whiskey per night. On his previous admit there was a report of alcohol withdrawal and treated on Sewall Ativan however patient was very agitated during and was switched to Valium with good results. Upon arrival to the emergency department he was in significant respiratory distress. Oxygen saturation down to the 80s despite receiving 4 L by nasal cannula. He is otherwise afebrile with stable vital signs. Chest x-ray was obtained as below: Persistent small pleural effusions and bibasilar airspace opacities consistent with compressive atelectasis versus pneumonia. Recommend clinical correlation and followup to resolution. Laboratory studies notable as below: CBC: Leukocytosis of 12.9 increased from prior, stable HCT of 41.7 CMP: BUN of 49 up from prior of 28, creatinine acutely elevated to 1.69 up from 1.1. Total bilirubin elevated at 2.9. Lactic acid 0.9 BNP: 13,357 Troponin negative INR: 2.2 AB.266 / 88 / 94.8 / 38.7 / 8.5 Review of Systems: Constitutional: Reports: Fatigue, Weakness - generalized, Denies: Chills, Fever Respiratory: Reports: Shortness of breath, Denies: Non-productive cough Cardiovascular: Denies: Chest pain Neurologic: Denies: Lightheaded, Syncope Complete sys rev & neg: except as marked. Allergies Coded Allergies: No Known Allergies (Verified Allergy, Unknown, 02/12/17) Uncoded Allergies: POLLENS (Allergy, Unknown, 04/19/14) Home Medications Scheduled Albuterol HFA (Proair HFA) 8.5 Gm Hfa.aer.ad 2 PUFFS INHALATION BID Allopurinol (Allopurinol) 100 Mg Tablet 100 MG PO DAILY Gabapentin (Gabapentin) 300 Mg Capsule 300 MG PO TID Gemfibrozil (Lopid) 600 Mg Tablet 600 MG PO BID Glipizide (Glipizide) 10 Mg Tablet 10 MG PO AM Magnesium Oxide (Magnesium Oxide) 400 Mg Tablet 400 MG PO BID Metformin (Metformin) 500 Mg Tablet 500 MG PO BID Metoprolol Tartrate (Metoprolol Tartrate) 100 Mg Tablet 100 MG PO BID Simvastatin (Simvastatin) 20 Mg Tablet 20 MG PO HS Torsemide (Torsemide) 20 Mg Tablet 40 MG PO BID Warfarin Sodium (Warfarin Sodium) 5 Mg Tablet 5 MG PO MONDAY-MONDAY Warfarin Sodium (Warfarin Sodium) 2.5 Mg Tablet 2.5 MG PO MONDAYS Scheduled PRN Metoprolol Tartrate (Metoprolol Tartrate) 25 Mg Tablet 25 MG PO DAILY PRN PRN palpitations PMH Obesity (BMI 53) HTN CHF w/ preserved EF, ho valvular disease s/p TAVR 01/2016 -> anticoagulated, on Warfarin NIDDM Hyperlipidemia Aortic stenosis (now s/p TAVR) GERD Sleep apnea Charcot foot ho GA ho JOSE/renal insufficiency Anxiety Depression Surgical History Vasectomy January 2016, aortic valve replacement at the (TAVR) left foot surgery Reports: Pacemaker insertion Family History Could not recall. Social History Hx Alcohol Use: Yes Hx Substance Use: No Hx Tobacco Use: No Smoking Status: Never Smoker Exam Vital Signs Vital Sign - Last Date Time Temp Pulse Resp B/P Pulse Ox O2 Delivery O2 Flow Rate FiO2 03/24/17 18:51 96 36 03/24/17 14:12 36.3 65 30 114/76 Room Air Exam General: Elderly obese gentleman lying in bed in mild respiratory distress with BiPAP in place. well-developed, well-nourished, appropriately interactive HEENT: Normocephalic, atraumatic. External ears without defect. Pupils equal, round, and reactive to light and accommodation. Anicteric sclerae, moist conjunctivae, and no lid lag. Oropharynx free of erythema and cobble stoning with moist mucosa. Neck: Supple with full range of motion. No jugular venous distension was appreciable however patient's had a very thick sanchez and large rotund neck which made physical exam difficult. Bruits were difficult to distinguish patients BiPAP in place. No lymphadenopathy or thyromegaly. Cardiovascular: Regular rate and rhythm with no murmurs, rubs, or gallops appreciated Pulmonary: Clear to auscultation bilaterally with no crackles, wheezes, or rhonchi. Normal respiratory effort with no use of accessory muscles. Abdomen: Bowel tones present. Soft, obese with significant abdominal adiposity, nontender, nondistended. No hepatosplenomegaly or masses appreciated. Extremities: No clubbing, cyanosis, edema, or lymphadenopathy appreciated. Skin: Normal temperature, turgor, and texture; no rash, ulcers, or subcutaneous nodules appreciated. Neurological: Cranial nerves grossly intact. Normal muscle strength, tone, and bulk. Reflexes, coordination, and sensory function within normal limits. No known gait impairment. Psychiatric: Normal mood and affect. Alert and oriented to person, place, and time. Lab and Diagnostics Result Diagram: 03/24/17165403/[id number]/[id number] Assessment & Plan Mr. Yahir Alatorre is a pleasant 66-year-old gentleman admitted to [facility] for shortness of breath. He reports he is on trilogy of home but does not use it and has been declining daily since his recent discharge in February. He states that he wakes up tired every day and that he called his son and his son talked him into coming to the hospital. The patient was recently admitted here about 2 weeks ago for pneumonia and hypercarbic respiratory failure. He was sent home with plan for 3-way trilogy CPAP and 3L of home O2 who has a course of outpatient antibiotics which he states that he is finished. He states he has not been using his 3-way trilogy CPAP at night because he does not feel that it fits correctly Pt c/o associated fatigue and generalized weakness. He lost his balance today and fell without head injury or change in LOC. He says that he has a home oxygen meter and that he has been experiencing saturation is at the 70s with ambulation spite wearing his home oxygen.He denies fevers, chills, cough, chest pain, nausea, vomiting, abdominal pain, dysuria. He reports some dizziness and near syncopal episode today, shortness of breath and fatigue. He reports one week of diarrhea that has since resolved. He has a past medical history significant for hypertension, CHF, severe aortic stenosis status post TAVR last year, hyperlipidemia, NIDDM, renal insufficiency , previous GA, morbid obesity, obesity hypoventilation syndrome, JODIE with an compliant CPAP use, alcohol use disorder. He is a nonsmoker never smoker. He reports significant alcohol intake of 8-9 drinks similar to andrea or whiskey per night. On his previous admit there was a report of alcohol withdrawal and treated on Sewall Ativan however patient was very agitated during and was switched to Valium with good results. 1. Acute on chronic hypercarbic Respiratory Failure, present on admission. Active. - Most likely secondary to obesity hypoventilation syndrome and noncompliance with home Trilogy and [facility] associated pneumonia. - Repeat ABG ordered, Previous ABG as above. Respiratory acidosis. - Procalcitonin ordered. Trend with morning labs. - Received Vanc/Zosyn in ED to cover for presumed HCAP, (with d/c from hospital 1 month ago.) - Viral Resp PCR panel. - Sputum cx ordered. - Old at L2 3 64 she is 2. ETOH use disorder, present on admission. Active. - CIWA with Valium. If patient has severe adverse reaction to Valium will consider Precedex. - Start thiamine. - Social work consult. 3. Acute on Chronic Renal insufficiency. Present admission. Active. - Balance IV fluids versus fluid overload with history of CHF. - On previous admission patient's creatinine was was 1.5 for a size 1.81 with a discharge creatinine of 1.10. According inpatient records over the past 5 years patient's creatinine has fluctuated from 0.77 to as high as 2.09. - We will monitor CMP closely. - Advised avoidance of nephrotoxic insults: Patient received Vanco and Zosyn in the emergency department, and is on home metformin. 4. Acute supratherapeutic INR, present on admission. Active. - INR 7.89. - Holding home warfarin. - Not giving vitamin K due to patient's prosthetic aortic valve and severe mitral stenosis on previous echo increases risk of thrombotic process. 5. Mild Acute Hyperkalemia, present on admission. Active. - Potassium on arrival was 5.6, previous size of potassium were historically below 5.2. - Patient on remote telemetry. 6. Congestive heart failure, present admission. Active. - According to cardiology master from 01/20/2017 patient has chronic systolic heart failure. - Reviewing outpatient records, - ProBNP was 13,000 on admission, and on previous admit BNP of 6000. - Most recent echo as of 02/14/2017. - Continue home torsemide 40 mg twice a day. 7. Chronic Non-insulin using diabetes mellitus, present on admission. Active. - Reviewing outpatient records - Carb restrictive diet. - A1c as of 02/13/2017 was 6.2. - Holding home metformin. Consider discontinuing metformin with patient's intermittent renal insufficiency. - Continue home gabapentin 900 mg daily. - Continue glipizide 10 mg daily. - Consider low-dose nutritional and correctional insulin. 8. Hypertension, not present on admission. Stable. - Reviewing outpatient records. - Patient's blood pressure on arrival was 114/76. - Holding home medications at this time. 9. History of myocardial infarction, - Continue home medications. - Troponins negative, continue to trend for at least 2-3 negative values. 10. Obstructive sleep apnea, present on admission. Active. - Noncompliant use of CPAP at home. - BiPAP/CPAP on at night. 11. Morbid obesity, present admission. Active. - BMI 52.3 - Carb restrictive diet. - Bariatric bed. - Physical Therapy ordered. 12. History of bicuspid aortic valve with TAVR. - TAVR on 02/02/2016. - Reviewing records currently. 13. History of complete heart block with permanent pacemaker. - He has a dual-chamber, [employer] permanent pacemaker for complete heart block. 14. Chronic atrial fibrillation, present on admission, rate controlled. - Holding home warfarin. - Continue home metoprolol tartrate 100 mg twice a day with meals. - Continue home metoprolol tartrate 25 mg as needed for palpitations. 15. Chronic gout, - Continue home allopurinol 100 mg 3 times a day. 16. Hyperlipidemia, - Continue home simvastatin 20 mg daily. - Recent lipid panel 02/13/2017 was as follows: Triglycerides 2:15, total cholesterol 146, LDL 64, VLDL 43, HDL 39. 17 . Hypermagnesemia, present on admission. Active. - Magnesium 2.9 on admission. - Holding home magnesium. 18. Hyperkalemia, present on admission. Active. - Holding home potassium. 19. Various wounds, present on admission. Active. - Left medial malleolus wound not followed by home health or other. - Right medial calf wound. Dressed by home health nurse. - Wound Care ordered. Social: Patient has significant alcoholism. Social work ordered. Acetaminophen for mild pain when necessary. Bowel regimen Senna and MiraLAX scheduled and PRN. Zofran when necessary for nausea and vomiting. SubQ heparin held for now. SCDs in place. High-risk medications: Warfarin IV vancomycin. Disposition: Patient has been admitted to the hospital under inpatient status. Discharge is dependent upon respiratory, renal and cardiac status. Discharge to home or pulmonary rehabilitation when medically stable. Pain Evaluation: Adequate Pain Control Resuscitation Status: CPR: Attempt Resuscitation Attending Statement The patient was seen and examined together with Dr. Jimenez on 03/24 and I agree with the history, exam and plan as outlined in the note above. ELIANA JIMENEZ DO March 24, 2017 19:54 Ronny Antony MD March 25, 2017 01:34
[2017-03-24 20:18] VITALS: BP 128/53; PULSE 60; RESP 14; O2SAT 95
[2017-03-24] MEDS: Albuterol 2.5 mg/3 mL Inhalation Solution NEB SCH (20:30)
[2017-03-24 20:49] VITALS: BP 123/74; PULSE 63; RESP 22; O2SAT 95
[2017-03-24 21:42] LABS: INR 7.89 ratio
--- NOTE | 2017-03-24 22:09 | NUR ---
Admission Patient admitted to [facility] 2027 at 2039. RT at bedside to place patient on BiPAP. Patient alert and oriented and able to converse with nurses. Reports last alcoholic beverages "last night" and states "three glasses of wine." Dressing changed to open wound on left foot; patient states wound has been there for "months" and he has been doing his own wound care for it. Second wound present on patient's right calf with gauze and hypafix dressing in place; small amount of dried sanguineous drainage visible through the hypafix. Patient states home health takes care of this wound and the dressing was changed yesterday.
[2017-03-25] VITALS (16 sets, daily range): BP systolic 114–136; BP diastolic 46–77; PULSE 60–84; RESP 18–28; O2SAT 89–98
[2017-03-25 00:20] LABS: APPEARANCE,URINE CLEAR (CLEAR,HAZY); COLOR,URINE YELLOW (YELLOW); OCCULT BLOOD,URINE TRACE (NEGATIVE); UROBILINOGEN,URINE NORMAL (NORMAL)
[2017-03-25] MEDS: Albuterol 2.5 mg/3 mL Inhalation Solution NEB SCH (00:30)
[2017-03-25] MEDS ORDERED: Albuterol 2.5 mg/3 mL Inhalation Solution NEB PRN (02:55)
[2017-03-25 03:48] LABS: BASOPHILS % (AUTO) 0.2 % (0-3); EOSINOPHILS % (AUTO) 0.7 % (0-5); MONOCYTES % (AUTO) 8.2 % (4-12); Mean Corpuscular Hemoglobin 33.6 pg (27.0-35.0); Mean Corpuscular Volume 104.2 fL (81-100); NEUTROPHILS % (AUTO) 79.4 % (40-74); Platelet Count 251 bil/L (150-400)
[2017-03-25] MEDS: 0.9% Sodium Chloride 1,000 ML IV SCH ×3 (04:31→20:15)
[2017-03-25 04:40] LABS: Phosphorus 5.2 mg/dL (2.5-4.9)
--- NOTE | 2017-03-25 05:21 | ABG ---
DateTimeAnalyzed 05:17:00 -_ pH ____7.217 - 7.350 7.450 pCO2 105 -mmHg 35.0 45.0 pO2 ___23.1__ -mmHg 69.0 116 HCO3- ___41.2__ -mmol/L 22.0 26.0 ABE ____9.6__ -mmol/L -2.0 2.0 tHb ___12.7__ -g/dL O2Hb ___30.7__ -% COHb ____1.0__ -% MetHb ____1.0__ -% sO2 ___31.3__ -% 25.0 FIO2 ___32.0__ -% Set_RR ___12.0__ -b/min Vt __540.0__ -L Drawn By MK - Date/Time Notified____ 05:20:00 -_ Oxygen Device 1 ____BIPAP - Notified By MK - Notified Whom Nancy rich - B 761 -mmHg tO2 ____5.5__ -Vol% Blayne test _Positive -
[2017-03-25] MEDS: Albuterol-Ipratropium 3 mL Inhalation Solution NEB SCH ×5 (05:24→20:44)
--- NOTE | 2017-03-25 05:34 | NUR ---
Changed patient to ST mode from AVAPS
--- NOTE | 2017-03-25 06:42 | PCM.CONPHA ---
Subjective Date of Service: March 25, 2017 Requesting Provider: ELIANA LOAIZA DO Shortness of breath. History of Present Illness HCAP Reason for Pharmacy Consult: Vancomycin Dosing Objective Assessment/Plan Assessment/Plan A/ - 66 y/o male checked in ED yesterday for possible HCAP (last hospitalized in February) required Vancomycin for broad coverage - Afebrile, WBC: 12.9; blood cultures (x2), sputum, nasal swab MRSA screen, PCR profile, strep. pneu. Ag pending - In ED, received loading dose of Vancomycin 2.25G iv @03/24, and Zosyn which to be continued - Wt: 175.4kg, ht: 183cm, SCr: 1.69 mg/dL (baseline of 1), estimated clearance ~ 55 ml/min, BMI: 52.4 kg/m2, Vd~88L P/ - Give Vancomycin 1.25G iv q12h. Trough level ordered before 3rd dose @1930 . This regimen would yield a trough around 18 Pharmacy will continue to follow and make necessary adjustment Thank you for consulting clinical pharmacy in the care of this patient Bradley Richard, PharmD, [facility] Lorelei Richard March 25, 2017 06:42
[2017-03-25] MEDS: Thiamine Inj 100 MG in Dextrose 5% 50 ML IV SCH (07:57)
[2017-03-25] MEDS ORDERED: Vancomycin Inj 1,250 MG in 0.9% Sodium Chloride 250 ML IV SCH (08:00)
[2017-03-25] MEDS: Multivit-Miner-Folic Acid-Iron Tablet PO SCH (08:08)
[2017-03-25] MEDS ORDERED: Vancomycin Dose per Pharmacist XX SCH (08:30)
--- NOTE | 2017-03-25 08:30 | NUR ---
Blood Sugar AM blood sugar was 72. Gave the pt apple juice and ate breakfast and rechecked blood sugar it was 120. made aware.
[2017-03-25] MEDS: Piperacillin-Tazo 3.375 Gm Inj 3.375 GM in Dextrose 5% Minibag Plus 50 ML IV SCH ×3 (09:47→22:12)
--- NOTE | 2017-03-25 10:16 | DRSVH ---
PROCEDURE: X-RAY CHEST ONE VIEW, PORTABLE ([id number]) INDICATIONS: acute on chronic resp failure TECHNIQUE: One view of the chest was acquired. COMPARISON: [facility], CR, XR CHEST 1VW (PORTABLE), 03/24/2017, 16:30. FINDINGS: Surgical changes and devices: Pacemaker is unchanged. Lungs and pleura: Unchanged appearance of trace effusions and bibasilar opacities. Mediastinum: Mediastinal contours appear normal. Heart size is normal. Bones and chest wall: No suspicious bony lesions. Overlying soft tissues appear unremarkable. IMPRESSION: Bibasilar opacities and trace effusions, unchanged. Dictated by: Diane Kim M.D. on 03/25/2017 at 10:14 Approved by: Diane Kim M.D. on 03/25/2017 at 10:15
--- NOTE | 2017-03-25 13:10 | NUR ---
Social Work: Initial Assessment D: Per EMR review, pt is a 66 year old male admitted for hypoxia, respiratory failure. Pt is Medicare with [employer] Out of State insurance with no LTC insurance or VA benefits. PCP is Doni Shaver MD. NOK Is Taiwo Alatorre, son, . Advanced directives not completed- information provided by FIGURE REFINISHER AND REPAIRER. Redmit score is high, 6/8. FIGURE REFINISHER AND REPAIRER met with pt at bedside. Sw role explained. See initial assessment. Pt lives alone in [place]. His sons live nearby and assist him as needed. Pt uses a FWW at baseline and has a ramp to enter his home. Pt is currently open for RN, PT services with [facility]. HH/SNF CHOICE LIST provided to patient. His preference is to discharge home with resumed [facility] when ready. Pt has home oxygen supplied through [employer] and a home Trilogy machine through [employer]. Pt states that he has not been compliant with his trilogy use because he felt that it did not fit properly. FIGURE REFINISHER AND REPAIRER updated resident MD about pt's report of his trilogy; MD will consult with [employer] to troubleshoot this issue. t/c to [facility] to notify of pt's admission. A: Pt who lives at home in [place], alone. P: Evolving; FIGURE REFINISHER AND REPAIRER to continue to follow pt's clinical course and assist with safe discharge planning as ordered by MD. Anticipate pt to either discharge home with resumed HH versus possible SNF. RUDY Cuevas Addendum: 03/25/17 at 1322 by KELVIN LANDEROS Amended: Links added.
--- NOTE | 2017-03-25 14:38 | PCM.PNMED ---
Subjective Date of Service March 25, 2017 Subjective Mr. Alatorre is a 66-year-old gentleman with a history of coronary artery disease, hypertension, diastolic heart failure, aortic stenosis status post TAVR in January of 2016, diabetes, sleep apnea and obesity. He presented to the emergency department with shortness of breath and subsequently admitted for acute on chronic hypercapneic respiratory failure, acute on chronic renal insufficiency, hyperkalemia and possible healthcare associated pneumonia. Patient appears comfortable, trilogy mask in place and in no acute distress. He states that he feels more alert and denies chest pain, fever, chills, headache, dizziness, nausea or vomiting. He denies history of or current symptoms of alcohol withdrawal. Admitted to [facility] overnight. Per nursing, patient was alert and oriented x3 and reported his last drink of alcohol was the night before; dressings on lower extremity wounds changed. Patient reports ongoing home health wound care prior to admission. Exam Vital Signs Vital Sign - Last Date Time Temp Pulse Resp B/P Pulse Ox O2 Delivery O2 Flow Rate FiO2 03/25/17 05:28 62 24 96 30 03/25/17 05:25 Nasal Cannula 4.00 03/25/17 04:40 36.7 136/71 Intake and Output 03/24/17 03/24/17 03/25/17 Cumulative From/Thru 15:00 23:00 07:00 03/24/17 14:12 - 03/25/17 06:33 Intake Total 480 ml 190 ml 670 ml Output Total 400 ml 400 ml Balance 480 ml -210 ml 270 ml Intake Oral 25 ml 25 ml IV Total 480 ml 165 ml 645 ml Output Urine Total 400 ml 400 ml Exam General: Elderly obese,unkempt gentleman lying in bed. In no acute distress, BiPAP in place. Appropriately interactive HEENT: Normocephalic, atraumatic. Pupils equal, round, and reactive to light and accommodation. Mucosa moist/pink. Neck: Supple, nontender, difficult to asses due to body habitus and sanchez no obvious JVD. No lymphadenopathy or thyromegaly. Cardiovascular: Regular rate and rhythm with no murmurs, rubs, or gallops appreciated Pulmonary: Clear to auscultation bilaterally with no crackles, wheezes, or rhonchi. Normal respiratory effort with no use of accessory muscles. Abdomen: Bowel tones present. Soft, obese with significant abdominal adiposity, nontender, nondistended. No masses appreciated. Extremities: Bilateral lower ext edema, no cyanosis or clubbing. Dressing clean , dry and intact. Skin: Normal temperature, turgor; no rashes Neurological: Cranial nerves grossly intact. No focal deficit. Psychiatric: Normal mood and affect. Alert and oriented to person, place, and time. IVs and Medications Medications Reviewed: Medications were reviewed in detail Lab and Diagnostics Laboratory Tests Test 03/24/17 16:55 03/25/17 00:00 03/25/17 01:08 03/25/17 03:40 White Blood Count 12.9th/mm3 (3.8-10.1) 11.4th/mm3 (3.8-10.1) Red Blood Count 3.97mil/mm3 (4.40-5.80) 4.02mil/mm3 (4.40-5.80) Hemoglobin 13.1g/dL (13.8-17.2) 13.5g/dL (13.8-17.2) Hematocrit 41.7% (41.0-50.0) 41.9% (41.0-50.0) Mean Corpuscular Volume 105.0fL (81-100) 104.2fL (81-100) Mean Corpuscular Hemoglobin 33.0pg (27.0-35.0) 33.6pg (27.0-35.0) Mean Corpuscular Hemoglobin Concent 31.4% (32.0-37.0) 32.2% (32.0-37.0) Red Cell Distribution Width 15.0% (12.3-15.4) 15.2% (12.3-15.4) Platelet Count 295bil/L (150-400) 251bil/L (150-400) Neutrophils (%) (Auto) 79.6% (40-74) 79.4% (40-74) Lymphocytes (%) (Auto) 11.2% (14-46) 11.3% (14-46) Monocytes (%) (Auto) 7.8% (4-12) 8.2% (4-12) Eosinophils (%) (Auto) 0.7% (0-5) 0.7% (0-5) Basophils (%) (Auto) 0.4% (0-3) 0.2% (0-3) Prothrombin Time 88.1sec (8.1-12.5) Prothromb Time International Ratio 7.89ratio Sodium Level 137mEq/L (134-144) 138mEq/L (134-144) Potassium Level 5.6mEq/L (3.5-5.2) 5.5mEq/L (3.5-5.2) Chloride Level 92mEq/L (97-108) 92mEq/L (97-108) Carbon Dioxide Level 36mmol/L (18-29) 33mmol/L (18-29) Blood Urea Nitrogen 49mg/dL (8-27) 48mg/dL (8-27) Creatinine 1.69mg/dL (0.76-1.27) 1.65mg/dL (0.76-1.27) Estimat Glomerular Filtration Rate 43mL/min (>59) 45mL/min (>59) Glucose Level 76mg/dL (60-99) 74mg/dL (60-99) Lactic Acid Level 0.9mmol/L (0.4-2.0) 1.0mmol/L (0.4-2.0) Calcium Level 9.2mg/dL (8.5-10.1) 8.9mg/dL (8.5-10.1) Magnesium Level 2.9mg/dL (1.6-2.6) Total Bilirubin 0.4mg/dL (0.0-1.2) 0.5mg/dL (0.0-1.2) Aspartate Amino Transf (AST/SGOT) 23U/L (0-50) 28U/L (0-50) Alanine Aminotransferase (ALT/SGPT) 20U/L (0-44) 19U/L (0-44) Alkaline Phosphatase 116U/L (25-160) 113U/L (25-160) Troponin T < 0.010ug/L (0.0-0.011) 0.010ug/L (0.0-0.011) Pro-B-Type Natriuretic Peptide 25734jb/mL (0-376) Total Protein 7.1g/dL (6.4-8.4) 6.6g/dL (6.4-8.4) Albumin 3.5g/dL (3.4-5.0) 3.6g/dL (3.4-5.0) Procalcitonin 0.16ng/mL (0.00-0.08) 0.14ng/mL (0.00-0.08) Urine Color Yellow (YELLOW) Urine Appearance Clear (CLEAR,HAZY) Urine pH 5.0 (5.0-8.0) Urine Specific [place] 1.015 (1.003-1.035) Urine Protein Tracemg/dL (NEG,TRACE) Urine Glucose (UA) Negativemg/dL (NEGATIVE) Urine Ketones Negativemg/dL (NEGATIVE) Urine Occult Blood Trace (NEGATIVE) Urine Nitrite Negative (NEGATIVE) Urine Bilirubin Negative (NEGATIVE) Urine Urobilinogen Normalmg/dL (NORMAL) Urine Leukocyte Esterase Negative (NEGATIVE) Urine RBC 0-2/hpf (0-2) Urine WBC 0-5/hpf (0-5) Urine Epithelial Cells Few/hpf (NONE-MOD) Urine Crystals None seen (NONE SEEN) Urine Bacteria Few/hpf (NONE-FEW) Urine Hyaline Casts >20/lpf (NONE) Urine Granular Casts None seen (NONE SEEN) Urine Waxy Casts None seen (NONE SEEN) Urine Red Blood Cell Casts None seen (NONE SEEN) Urine White Blood Cell Casts None seen (NONE SEEN) Urine Mucus None seen (None Seen) Urine Trichomonas None seen (NONE SEEN) Urine Yeast None (NONE SEEN) Urinalysis Comment None Urine Culture Reflexed Not indicated Phosphorus Level 5.2mg/dL (2.5-4.9) Result Diagram: 03/25/17 0340 03/25/17 0340 Microbiology 03/24/17 Blood Culture- pending 03/25/17 Streptococcus pneumoniae Ag Screen- negative 03/25/17 Legionella urine antigen- negative 03/25/17 Respiratory viral PCR- negative 03/25/17 MRSA screen- negative . X-Rays, CTs and MRIs (03/24/17) X-RAY CHEST ONE VIEW, PORTABLE IMPRESSION: Persistent small pleural effusions and bibasilar airspace opacities consistent with compressive atelectasis versus pneumonia. Recommend clinical correlation and followup to resolution. Interpreted and approved by: Shima Abraham MD on 03/24/2017 at 16:57 . Assessment & Plan Mr. Alatorre is a 66-year-old gentleman with a history of coronary artery disease, hypertension, diastolic heart failure, aortic stenosis status post TAVR in January of 2016, diabetes, sleep apnea and obesity. He presented to the emergency department with shortness of breath and subsequently admitted for acute on chronic hypercapneic respiratory failure, acute on chronic renal insufficiency, hyperkalemia and possible healthcare associated pneumonia. Acute on chronic hypercapneic respiratory failure. Present on admission. Active. - Most likely secondary to obesity hypoventilation syndrome and noncompliance with home Trilogy. Infection appears less likely as procalcitonin is only minimally elevated and respiratory PCR as well as urine antigens are negative. - In the ED: received IV zosyn and vancomycin empirically out of concern for healthcare associated pneumonia (Discharged last month). - Chest xray shows bibasilar opacities and trace effusions, no focal consolidation. - ABG at presentation showed respiratory acidosis and repeat ABG showed the same but improved. - Continue zosyn through tomorrow, monitor for signs/symptoms of infection. Likely discontinue tomorrow. - Stop vancomycin as MRSA screen is negative. - Counseled patient regarding the importance of wearing his trilogy at home. - Continue supplemental oxygen, bipap and home albuterol. Acute on chronic renal insufficiency. Present admission. Active. - Likely prerenal secondary to hypoperfusion due to heart failure. - Baseline Cr appears to be ~1.2. - Creatinine 1.69 at presentation. 1.65 today. - Continue to hold metformin - IV fluids cautiously due to heart failure - Follow CMP History of heart failure, chronic. Present admission. Active. - Likely multifactorial due coronary artery disease, Afib, valvular disease and possibly alcoholic cardiomyopathy. - BNP 13,000, up from 6000 last month. - Recent echocardiogram (02/14/17)- grossly normal. - Continue home torsemide 40 mg twice a day. Supra-therapeutic INR, unknown chronicity. Present on admission. Active. - Patient chronically anticoagulated on warfarin due to Afib. - INR 7.89. - Warfarin on hold. - Repeat INR - Pharmacist to dose warfarin when appropriate Hyperkalemia, acute. Present on admission. Active. - Likely multifactorial and secondary to renal insufficiency, hyperglycemia, and respiratory acidosis. - Potassium 5.6 - Kayexalate 30g - IV fluids, as above - Follow BMP Hypermagnesemia, acute. Present on admission. Active. - Likely secondary to renal insufficiency. - Magnesium 2.9 - IV fluids, as above - Follow BMP Atrial fibrillation chronic. Present on admission. Presumed stable. - Patient chronically anticoagulated on warfarin. INR supratherapeutic as above. - Pharmacy to dose warfarin when appropriate. - Continue metoprolol tartrate, 100mg twice daily for rate control - Continue home metoprolol tartrate 25 mg as needed for palpitations. Diabetes mellitus, type 2, chronic. Present on admission. Active. - Patient not on insulin. Currently controlled with metformin 500mg bid and glipizide 10mg daily. - HbA1c on 02/13/17 6.2. - Continue glipizide and hold metformin due to renal insufficiency - Continue home gabapentin 900 mg daily. - Low-dose correctional insulin lispro ordered ETOH use disorder, chronic. Present on admission. Active. - Patient reports 3-4 shots of whiskey a night along with andrea and wine. Denies history of withdrawal symptoms. - CIWA scores 0-4, patient with adverse reaction to lorazepam in the past. Will continue with diazepam. - Continue thiamine - Social work consulted and following. Hypertension, chronic. Present on admission. Presumed stable. - Continue metoprolol as above Hyperlipidemia, chronic. Present on admission. Presumed stable. - LDL 64, HDL 39, total cholesterol 146, and triglycerides 215 on 02/13 - Continue home simvastatin 20 mg daily. Obstructive sleep apnea, chronic. Present on admission. Active. - Patient reportedly noncompliant with CPAP at home. - BiPAP/CPAP on at night. Morbid obesity, chronic. Present admission. Active. - BMI 52.3 - Counseled patient regarding lifestyle changes - Continue consistent carb diet - Physical Therapy Gout, chronic. Present on admission. Presumed stable. - Continue home allopurinol 100 mg 3 times a day Acetaminophen for mild pain when necessary. Bowel regimen Senna and MiraLAX scheduled and PRN. Zofran when necessary for nausea and vomiting. Disposition: Patient will likely discharge home with home health in 1-2 days pending improvement in respiratory status and electrolyte abnormalities. Pain Evaluation: Adequate Pain Control Resuscitation Status: CPR: Attempt Resuscitation Attending Statement The patient was seen and examined together with Dr. Joy on 03/25/2017 and I agree with the history, exam and plan as outlined in the note above. . Rosa Joy DO March 25, 2017 08:44 Bradly Ibarra MD March 25, 2017 17:08
--- NOTE | 2017-03-25 15:36 | ABG ---
DateTimeAnalyzed 15:31:00 -_ pH ____7.363 - 7.350 7.450 pCO2 ___70.9__ -mmHg 35.0 45.0 pO2 ___63.2__ -mmHg 69.0 116 HCO3- ___39.3__ -mmol/L 22.0 26.0 ABE ___11.5__ -mmol/L -2.0 2.0 tHb ___12.2__ -g/dL O2Hb ___90.4__ -% COHb ____1.4__ -% MetHb ____0.6__ -% sO2 ___92.2__ -% 25.0 FIO2 ___35.0__ -% Vt __400.0__ -L Drawn By NB - Date/Time Notified____ 15:35:00 -_ Spontaneous_RR ___22.0__ -b/min Oxygen Device 1 __Trilogy - Notified By NB - Notified Whom DR BEUNING - B 762 -mmHg tO2 ___15.5__ -Vol% Blayne test _Positive -
[2017-03-25 16:07] LABS: INR 7.41 ratio
--- NOTE | 2017-03-25 16:21 | PCM.CONPHA ---
Assessment/Plan Assessment/Plan ANTICOAGULATION MANAGEMENT BY PHARMACY -INDICATION: AFIB -HOME DOSE: 2.5 MG MONDAY, 5 MG -SUN -CONCURRENT ANTICOAGULATION: NONE -CRCL: 56.2 ML/MIN -COAG TRENDS: Date -March 25-March INR 7.89 7.41 INR change ~ -0.48 Warf Dose HELD HELD -[id number] SCORE: 3 PLAN: Will continue to hold warfarin due to supratherapetic INR. As stated in MD note patient not a candidate for vitamin k Not giving vitamin K due to patient's prosthetic aortic valve and severe mitral stenosis on previous echo increases risk of thrombotic process but patient not currently having s/s of bleeding. Serial INRs ordered will continue to dose as appropriate. Pharmacy appreciates consult and will continue to monitor. THANKS! Sara Dubois PharmD March 25, 2017 16:21
[2017-03-25] MEDS ORDERED: Vancomycin Serum Trough XX ONE (19:30)
[2017-03-26] VITALS (13 sets, daily range): BP systolic 113–136; BP diastolic 48–105; PULSE 63–78; RESP 14–24; O2SAT 86–95
[2017-03-26] MEDS: Albuterol-Ipratropium 3 mL Inhalation Solution NEB SCH ×4 (00:20→11:49)
--- NOTE | 2017-03-26 03:42 | NUR ---
IV access Patient tossing and turning in bed while asleep and his right AC IV pulled out. Attempted to flush his left hand IV, which had worked well earlier in the evening, and found that it had also been pulled loose. Evaluated patient for new IV placement and found patient has generally poor options for establishing a new venous access site. Page to resident; ok to leave patient without IV access until he can be evaluated by IV therapy. Message left for IV therapy to come see patient first thing in the morning.
[2017-03-26 04:04] LABS: BASOPHILS % (AUTO) 0.3 % (0-3); EOSINOPHILS % (AUTO) 1.7 % (0-5); MONOCYTES % (AUTO) 7.6 % (4-12); Mean Corpuscular Hemoglobin 32.8 pg (27.0-35.0); Mean Corpuscular Volume 106.4 fL (81-100); NEUTROPHILS % (AUTO) 82.1 % (40-74); Platelet Count 266 bil/L (150-400)
[2017-03-26 04:28] LABS: INR 5.7 ratio
[2017-03-26 04:35] LABS: Magnesium 2.7 mg/dL (1.6-2.6); Phosphorus 5.5 mg/dL (2.5-4.9)
[2017-03-26] MEDS: Piperacillin-Tazo 3.375 Gm Inj 3.375 GM in Dextrose 5% Minibag Plus 50 ML IV SCH (05:00)
[2017-03-26] MEDS: Multivit-Miner-Folic Acid-Iron Tablet PO SCH (07:36)
--- NOTE | 2017-03-26 07:43 | PCM.PHAPRO ---
Progress Shortness of breath. Date March 25-March 26-March INR 7.89 7.41 5.7 INR change -0.48 -1.71 Warf Dose HELD HELD HOLD Taiwo Welch Pharm.D March 26, 2017 07:43
[2017-03-26] MEDS: 0.9% Sodium Chloride 1,000 ML IV SCH (10:06)
[2017-03-26] MEDS: Thiamine Inj 100 MG in Dextrose 5% 50 ML IV SCH (10:06)
--- NOTE | 2017-03-26 12:02 | NUR ---
[facility] Signed
[2017-03-26] MEDS ORDERED: Albuterol-Ipratropium 3 mL Inhalation Solution NEB PRN (12:05)
--- NOTE | 2017-03-26 17:48 | NUR ---
Respiratory Patient maintains SpO2 i88-92% while wearing home trilogy. Tolerates being on 2L NC for a short time but, fatigues easily and becomes confused and drowsy. Patient compliant with wearing trilogy and verbalizes understanding of his condition. VSS. Patient A&Ox3. Will continue to monitor closely.
--- NOTE | 2017-03-26 20:01 | PCM.PNMED ---
Subjective Date of Service March 26, 2017 Subjective Hospital day 2 Overnight, patient had bouts of confusion for which she required placement on BiPAP. Please note that he has home Trilogy, and his obesity hypoventilation is significant. He otherwise denies complaints at this time. We wear for a period of time this morning wondering about getting an ABG, but his confusion ( which was quite mild) resolved spontaneously. He reports that he typically places a drying powder and is inguinal and groin folds. Patient also reports that he uses a nystatin of some kind on his toes. ROS otherwise negative. Exam Vital Signs Vital Sign - Last Date Time Temp Pulse Resp B/P Pulse Ox O2 Delivery O2 Flow Rate FiO2 03/26/17 19:48 36.6 67 14 134/54 91 BiPAP 7.00 03/25/17 12:00 35 Intake and Output 03/25/17 03/25/17 03/26/17 Cumulative From/Thru 15:00 23:00 07:00 03/24/17 14:12 - 03/26/17 06:55 Intake Total 1451 ml 1026 ml 3147 ml Output Total 1125 ml 300 ml 1825 ml Balance 326 ml 726 ml 1322 ml Intake Oral 518 ml 200 ml 743 ml IV Total 933 ml 826 ml 2404 ml Output Urine Total 1125 ml 300 ml 1825 ml # Bowel Movements 0 0 Exam General: Elderly obese,unkempt gentleman lying in bed. In no acute distress, nasal cannula in place. Appropriately interactive HEENT: Normocephalic, atraumatic. Pupils equal, round, and reactive to light and accommodation. Mucosa moist/pink. Face has lots of dried secretions around the eyes nose and mouth Neck: Supple, nontender, difficult to asses due to body habitus and sanchez no obvious JVD. No lymphadenopathy or thyromegaly. Cardiovascular: Regular rate and rhythm with no murmurs, rubs, or gallops appreciated Pulmonary: Clear to auscultation bilaterally with no crackles, wheezes, or rhonchi. Normal respiratory effort with no use of accessory muscles. Abdomen: Bowel tones present. Soft, obese with significant abdominal adiposity, nontender, nondistended. No masses appreciated. Extremities: Bilateral lower ext edema with brawny skin changes, no cyanosis or clubbing. Dressing clean, dry and intact. Bilateral feet and toes demonstrate significant flaking and some concern for chronic ulceration (especially the right great toe) Skin: Normal temperature, turgor; no rashes Neurological: Cranial nerves grossly intact. No focal deficit. Psychiatric: Normal mood and affect. Alert and oriented to person, place, and time. Lab and Diagnostics Result Diagram: 03/26/17 0332 03/26/17 0332 Microbiology 03/24/17 Blood Culture- pending 03/25/17 Streptococcus pneumoniae Ag Screen- negative 03/25/17 Legionella urine antigen- negative 03/25/17 Respiratory viral PCR- negative 03/25/17 MRSA screen- negative . X-Rays, CTs and MRIs (03/24/17) X-RAY CHEST ONE VIEW, PORTABLE IMPRESSION: Persistent small pleural effusions and bibasilar airspace opacities consistent with compressive atelectasis versus pneumonia. Recommend clinical correlation and followup to resolution. Interpreted and approved by: Shima Abraham MD on 03/24/2017 at 16:57 . Assessment & Plan Mr. Yahir Alatorre is a pleasant 66-year-old gentleman admitted to [facility] for shortness of breath. He reports he is on trilogy of home but does not use it and has been declining daily since his recent discharge in February. He states that he wakes up tired every day and that he called his son and his son talked him into coming to the hospital. The patient was recently admitted here about 2 weeks ago for pneumonia and hypercarbic respiratory failure. He was sent home with plan for 3-way trilogy CPAP and 3L of home O2 who has a course of outpatient antibiotics which he states that he is finished. He states he has not been using his 3-way trilogy CPAP at night because he does not feel that it fits correctly Pt c/o associated fatigue and generalized weakness. He lost his balance today and fell without head injury or change in LOC. He says that he has a home oxygen meter and that he has been experiencing saturation is at the 70s with ambulation spite wearing his home oxygen.He denies fevers, chills, cough, chest pain, nausea, vomiting, abdominal pain, dysuria. He reports some dizziness and near syncopal episode today, shortness of breath and fatigue. He reports one week of diarrhea that has since resolved. He has a past medical history significant for hypertension, CHF, severe aortic stenosis status post TAVR last year, hyperlipidemia, NIDDM, renal insufficiency , previous DE, morbid obesity, obesity hypoventilation syndrome, JODIE with an compliant CPAP use, alcohol use disorder. He is a nonsmoker never smoker. He reports significant alcohol intake of 8-9 drinks similar to andrea or whiskey per night. On his previous admit there was a report of alcohol withdrawal and treated on [place] Ativan however patient was very agitated during and was switched to Valium with good results. Hospital day 2. 1. Acute on chronic hypercarbic Respiratory Failure, present on admission. Active. - Most likely secondary to obesity hypoventilation syndrome and noncompliance with home Trilogy and Possible Healthcare associated pneumonia. - Repeat ABG as needed given respiratory acidosis - Procalcitonin unremarkable 2. - Received Vanc/Zosyn in ED to cover for presumed HCAP, (with d/c from hospital 1 month ago.). MRSA is negative so Vanco was stopped. Zosyn also stopped given lack of significant findings consistent with infectious etiology. - Viral Resp PCR panel negative as above. - Sputum cx ordered, but yet to be collected given lack of productive cough. -Patient has his trilogy, and we will provide BiPAP as needed 2. ETOH use disorder, present on admission. Active. - CIWA with Valium (not yet needed). If patient has severe adverse reaction to Valium will consider Precedex. - Start thiamine. - Social work consult. 3. Acute on Chronic Renal insufficiency. Present admission. Active. - Balance IV fluids versus fluid overload with history of CHF. - On previous admission patient's creatinine was was 1.5 for a size 1.81 with a discharge creatinine of 1.10. According inpatient records over the past 5 years patient's creatinine has fluctuated from 0.77 to as high as 2.09. - We will monitor CMP closely. - Advised avoidance of nephrotoxic insults: Patient received Vanco and Zosyn in the emergency department (stopped 03/26), and is on home metformin (held). 4. Acute supratherapeutic INR, present on admission. Active and improving. - INR 7.89 , And slowly down trending- Holding home warfarin. - Not giving vitamin K due to patient's prosthetic aortic valve and severe mitral stenosis on previous echo increases risk of thrombotic process. 5. Mild Acute Hyperkalemia, present on admission. Active and improving. - Potassium on arrival was 5.6, previous size of potassium were historically below 5.2. - Patient on remote telemetry. 6. Congestive heart failure, present admission. Active. - According to cardiology master from 01/20/2017 patient has chronic systolic heart failure. - Reviewing outpatient records, - ProBNP was 13,000 on admission, and on previous admit BNP of 6000. - Most recent echo as of 02/14/2017. - Continue home torsemide 40 mg twice a day. 7. Chronic Non-insulin using diabetes mellitus, present on admission. Active. - Reviewing outpatient records - Carb restrictive diet. - A1c as of 02/13/2017 was 6.2. - Holding home metformin. Consider discontinuing metformin with patient's intermittent renal insufficiency. - Continue home gabapentin 900 mg daily. - Continue glipizide 10 mg daily. - Consider low-dose nutritional and correctional insulin. 8. Hypertension, not present on admission. Stable. - Reviewing outpatient records. - Patient's blood pressure on arrival was 114/76. - Holding home medications at this time. 9. History of myocardial infarction, - Continue home medications. - Troponins negative, continue to trend for at least 2-3 negative values. 10. Obstructive sleep apnea, present on admission. Active. - Noncompliant use of CPAP at home. - BiPAP/CPAP on at night. 11. Morbid obesity, present admission. Active. - BMI 52.3 - Carb restrictive diet. - Bariatric bed. - Physical Therapy ordered. 12. History of bicuspid aortic valve with TAVR. - TAVR on 02/02/2016. - Reviewing records currently. 13. History of complete heart block with permanent pacemaker. - He has a dual-chamber, [employer] permanent pacemaker for complete heart block. 14. Chronic atrial fibrillation, present on admission, rate controlled. - Holding home warfarin. - Continue home metoprolol tartrate 100 mg twice a day with meals. - Continue home metoprolol tartrate 25 mg as needed for palpitations. 15. Chronic gout, - Continue home allopurinol 100 mg 3 times a day. 16. Hyperlipidemia, - Continue home simvastatin 20 mg daily. - Recent lipid panel 02/13/2017 was as follows: Triglycerides 2:15, total cholesterol 146, LDL 64, VLDL 43, HDL 39. 17 . Hypermagnesemia, present on admission. Active. - Magnesium 2.9 on admission. - Holding home magnesium. 18. Hyperkalemia, present on admission. Active. - Holding home potassium. 19. Various wounds, present on admission. Active. - Left medial malleolus wound not followed by home health or other. - Right medial calf wound. Dressed by home health nurse. - Wound Care ordered. Acetaminophen for mild pain when necessary. Bowel regimen Senna and MiraLAX scheduled and PRN. Zofran when necessary for nausea and vomiting. High-risk medications: Warfarin IV vancomycin. Patient has been admitted to the hospital under inpatient status. Discharge is dependent upon respiratory, renal and cardiac status. Discharge to home or pulmonary rehabilitation when medically stable. Anticipate discharge in 2-3 days Pain Evaluation: Adequate Pain Control Resuscitation Status: CPR: Attempt Resuscitation Attending Statement The patient was seen and examined together with Dr. Brar on 03/26/2017 and I agree with the history, exam and plan as outlined in the note above. . Red Beard DO March 26, 2017 20:01 Bradly Ibarra MD March 27, 2017 14:21
[2017-03-27] VITALS (9 sets, daily range): BP systolic 121–137; BP diastolic 58–70; PULSE 63–80; RESP 10–20; O2SAT 91–99
--- NOTE | 2017-03-27 04:12 | NUR ---
Respiratory Patient wanting to talk about his respiratory conditions with his nurse. Stated he just found out he has COPD. Discussed the importance of continuing to use his home trilogy to ensure optimal lung function at home. Patient agrees that the trilogy seems to help a lot, but states that he is going to have to "make a big lifestyle adjustment." Encouraged patient to follow through with his treatment plans. Patient on his trilogy all night, SpO2 in the low to mid 90s with a 7L bleed in.
[2017-03-27 04:19] LABS: INR 3.29 ratio
[2017-03-27 04:24] LABS: Magnesium 2.5 mg/dL (1.6-2.6); Phosphorus 4.4 mg/dL (2.5-4.9)
[2017-03-27 04:35] LABS: BASOPHILS % (AUTO) 0.2 % (0-3); EOSINOPHILS % (AUTO) 2.8 % (0-5); MONOCYTES % (AUTO) 8.1 % (4-12); Mean Corpuscular Volume 105.3 fL (81-100); NEUTROPHILS % (AUTO) 79.3 % (40-74); Platelet Count 256 bil/L (150-400)
--- NOTE | 2017-03-27 08:25 | PCM.PHAPRO ---
Progress Shortness of breath. Date March 25-March 26-March 27-March 28-March 29-March 30-March ###### -March ###### INR 7.89 7.41 5.7 3.29 INR change -0.48 -1.71 -2.41 Warf Dose HELD HELD HOLD 1MG Brad Zapien S Pharm D March 27, 2017 08:25
[2017-03-27] MEDS: Thiamine Inj 100 MG in Dextrose 5% 50 ML IV SCH (10:30)
[2017-03-27] MEDS: Multivit-Miner-Folic Acid-Iron Tablet PO SCH (10:31)
--- NOTE | 2017-03-27 11:27 | NUR ---
Wound Note Wound orders received, patient seen at bedside. 66 yo diabetic male admitted with COPD, frequently seen at the wound center in the past for diabetic wound care secondary to his bilateral foot deformities. Today patient presents with multiple small scabbed abrasions, 2 at the left anterior ankle 1 cm diameter each, 1 at the left medial ankle 1 cm diameter and 1 at left medial calf 1 cm in diameter and 1 at tip of left great toe. None of these lesions is in need of anything more tillman antibiotic ointment, would recommend bacitracin daily. Patient wears his own compression stockings and braces, does not need compression currently as legs are elevated in bed. Urged patient to follow up with his manager style. No further wound care needed at this time.
--- NOTE | 2017-03-27 14:26 | PCM.PNMED ---
Subjective Date of Service March 27, 2017 Subjective Mr. Alatorre is a 66-year-old gentleman with a history of coronary artery disease, hypertension, diastolic heart failure, aortic stenosis status post TAVR in January of 2016, diabetes, sleep apnea and obesity. He presented to the emergency department with shortness of breath and subsequently admitted for acute on chronic hypercapneic respiratory failure, acute on chronic renal insufficiency, hyperkalemia and possible healthcare associated pneumonia. Patient appears comfortable, trilogy mask in place and in no acute distress. He states that he worried about going home and having the power go out. He does note that he has alternative power for his trilogy if necessary. He is without complaint this morning. Per nursing, patient on his trilogy all night, SpO2 in the low to mid 90s with a 7L bleed. Exam Vital Signs Vital Sign - Last Date Time Temp Pulse Resp B/P Pulse Ox O2 Delivery O2 Flow Rate FiO2 03/27/17 02:39 20 125/58 96 BiPAP 7.00 03/26/17 22:47 36.7 63 03/25/17 12:00 35 Intake and Output 03/26/17 03/26/17 03/27/17 Cumulative From/Thru 15:00 23:00 07:00 03/24/17 14:12 - 03/27/17 06:21 Intake Total 450 ml 520 ml 4117 ml Output Total 1050 ml 1400 ml 4275 ml Balance -600 ml -880 ml -158 ml Intake Oral 400 ml 500 ml 1643 ml IV Total 50 ml 20 ml 2474 ml Output Urine Total 1050 ml 1400 ml 4275 ml # Voids 3 3 # Bowel Movements 0 Exam General: Elderly obese,unkempt gentleman lying in bed. In no acute distress, BiPAP in place. Appropriately interactive HEENT: Normocephalic, atraumatic. Pupils equal, round, and reactive to light and accommodation. Mucosa moist/pink. Neck: Supple, nontender, difficult to asses due to body habitus and sanchez no obvious JVD. No lymphadenopathy or thyromegaly. Cardiovascular: Regular rate and rhythm with no murmurs, rubs, or gallops appreciated Pulmonary: Clear to auscultation bilaterally with no crackles, wheezes, or rhonchi. Abdomen: Soft, obese, nontender, nondistended. No masses appreciated. Bowel tones present. Extremities: Bilateral lower ext edema, no cyanosis or clubbing. Skin: Normal temperature, turgor. Neurological: Cranial nerves grossly intact. No focal deficit. Psychiatric: Normal mood and affect. Alert and oriented to person, place, and time. IVs and Medications Medications Reviewed: Medications were reviewed in detail Lab and Diagnostics Laboratory Tests Test 03/27/17 03:55 White Blood Count 12.4th/mm3 (3.8-10.1) Red Blood Count 3.59mil/mm3 (4.40-5.80) Hemoglobin 12.2g/dL (13.8-17.2) Hematocrit 37.8% (41.0-50.0) Mean Corpuscular Volume 105.3fL (81-100) Mean Corpuscular Hemoglobin 34.0pg (27.0-35.0) Mean Corpuscular Hemoglobin Concent 32.3% (32.0-37.0) Red Cell Distribution Width 15.4% (12.3-15.4) Platelet Count 256bil/L (150-400) Neutrophils (%) (Auto) 79.3% (40-74) Lymphocytes (%) (Auto) 9.4% (14-46) Monocytes (%) (Auto) 8.1% (4-12) Eosinophils (%) (Auto) 2.8% (0-5) Basophils (%) (Auto) 0.2% (0-3) Prothrombin Time 36.1sec (8.1-12.5) Prothromb Time International Ratio 3.29ratio Sodium Level 141mEq/L (134-144) Potassium Level 4.8mEq/L (3.5-5.2) Chloride Level 95mEq/L (97-108) Carbon Dioxide Level 39mmol/L (18-29) Blood Urea Nitrogen 36mg/dL (8-27) Creatinine 1.51mg/dL (0.76-1.27) Estimat Glomerular Filtration Rate 49mL/min (>59) Glucose Level 121mg/dL (60-99) Calcium Level 9.1mg/dL (8.5-10.1) Phosphorus Level 4.4mg/dL (2.5-4.9) Magnesium Level 2.5mg/dL (1.6-2.6) Hold Martinez Top Tube Received (Received) Result Diagram: 03/27/17 0355 03/27/17 0355 Microbiology 03/24/17 Blood Culture- pending 03/25/17 Streptococcus pneumoniae Ag Screen- negative 03/25/17 Legionella urine antigen- negative 03/25/17 Respiratory viral PCR- negative 03/25/17 MRSA screen- negative . X-Rays, CTs and MRIs (03/24/17) X-RAY CHEST ONE VIEW, PORTABLE IMPRESSION: Persistent small pleural effusions and bibasilar airspace opacities consistent with compressive atelectasis versus pneumonia. Recommend clinical correlation and followup to resolution. Interpreted and approved by: Shima Abraham MD on 03/24/2017 at 16:57 . (03/25/17) X-RAY CHEST ONE VIEW, PORTABLE IMPRESSION: Bibasilar opacities and trace effusions, unchanged. Dictated and approved by: Diane Kim M.D. on 03/25/2017 at 10:14 . Assessment & Plan Mr. Alatorre is a 66-year-old gentleman with a history of coronary artery disease, hypertension, diastolic heart failure, aortic stenosis status post TAVR in January of 2016, diabetes, sleep apnea and obesity. He presented to the emergency department with shortness of breath and subsequently admitted for acute on chronic hypercapneic respiratory failure, acute on chronic renal insufficiency, hyperkalemia and possible healthcare associated pneumonia. Hospital day #4 Acute on chronic hypercapneic respiratory failure. Present on admission. Improved - Most likely secondary to obesity hypoventilation syndrome and noncompliance with home Trilogy; concern for healthcare associated pneumonia. (Discharged last month). - ABG showed respiratory acidosis on admission. Chest xray w/bibasilar opacities and no focal consolidation. - Received vancomycin/zosyn out of concern for HCAP. Antibiotics discontinued due to lack of signs/symptoms consistent with infection. - Procalcitonin unremarkable x2, Resp PCR and urine antigens negative. - Counseled patient regarding the importance of wearing his trilogy at home. - Continue supplemental oxygen, bipap and home albuterol. Acute on chronic renal insufficiency. Present admission. Improved - Likely prerenal secondary to hypoperfusion due to heart failure. - Baseline Cr appears to be ~1.2. - Cr 1.69 at presentation. 1.51 today. - Continue to hold metformin - IV fluids cautiously due to heart failure - Follow CMP Atrial fibrillation chronic. Present on admission. Presumed stable. - Patient chronically anticoagulated on warfarin. INR supratherapeutic as above. - Pharmacy to dose warfarin - Continue metoprolol tartrate, 100mg twice daily for rate control - Continue home metoprolol tartrate 25 mg as needed for palpitations. Supra-therapeutic INR, unknown chronicity. Present on admission. Improved. - Patient chronically anticoagulated on warfarin due to Afib. - History of bicuspid aortic valve with TAVR on 02/02/2016. - INR trending down, most recent 3.29 - Warfarin on hold. - Pharmacist to dose warfarin History of systolic heart failure, chronic. Present admission. Presumed stable. - Likely multifactorial due coronary artery disease, Afib, valvular disease and possibly alcoholic cardiomyopathy. - BNP 13,000, up from 6000 last month. - Recent echocardiogram (02/14/17)- grossly normal. - Continue home torsemide 40 mg twice a day. Diabetes mellitus, type 2, chronic. Present on admission. Active. - Patient not on insulin. Currently controlled with metformin 500mg bid and glipizide 10mg daily. - HbA1c on 02/13/17 6.2. - Holding home metformin. - Continue glipizide 10 mg daily. - Continue home gabapentin 900 mg daily. - Low-dose correctional insulin lispro ordered - Carb restrictive diet. ETOH use disorder, chronic. Present on admission. Presumed stable. - Patient reports 3-4 shots of whiskey a night along with andrea and wine. Denies history of withdrawal symptoms. - CIWA with Valium (not yet needed). If patient has severe adverse reaction to Valium will consider Precedex. - Start thiamine. - Social work consult. Hypertension, chronic. Present on admission. Presumed stable. - Continue metoprolol as above Hyperlipidemia, chronic. Present on admission. Presumed stable. - LDL 64, HDL 39, total cholesterol 146, and triglycerides 215 on 02/13 - Continue home simvastatin 20 mg daily. Obstructive sleep apnea, chronic. Present on admission. Active. - Patient reportedly noncompliant with CPAP at home. - BiPAP/CPAP on at night. Coronary artery disease, chronic. Present on admission. Presumed stable. - History of IN. Patient asymptomatic for chest pain. Troponins negative x2. - Continue home medications. Morbid obesity, chronic. Present admission. Active. - BMI 52.3 - Counseled patient regarding lifestyle changes - Continue consistent carb diet - Physical Therapy Gout, chronic. Present on admission. Presumed stable. - Continue home allopurinol 100 mg 3 times a day Various wounds, present on admission. Active. - Left medial malleolus wound not followed by home health or other. - Right medial calf wound. Dressed by home health nurse. - Wound Care following Hyperkalemia, acute. Present on admission. Resolved. - Likely multifactorial and secondary to renal insufficiency, hyperglycemia, and respiratory acidosis. - Potassium 5.6. most recent 4.8 Hypermagnesemia, acute. Present on admission. Resolved. - Likely secondary to renal insufficiency. - Magnesium 2.9, most recent 2.5 - IV fluids, as above - Holding home magnesium. High-risk medications: Warfarin Acetaminophen for mild pain when necessary. Bowel regimen Senna and MiraLAX scheduled and PRN. Zofran when necessary for nausea and vomiting. Disposition: Patient will likely discharge home with home health in 1-2 days pending improvement in respiratory status and electrolyte abnormalities. Resuscitation Status: CPR: Attempt Resuscitation Attending Statement The patient was seen and examined together with Dr. Joy on 03-27-17 and I agree with the history, exam and plan as outlined in the note above. Rosa Joy DO March 27, 2017 08:00 Osvaldo Hendrix MD March 28, 2017 16:20
--- NOTE | 2017-03-27 15:14 | NUR ---
Multidisciplinary Communication 929 - Discussed his care with Dr. Hendrix, Dr. Maradiaga, and the rest of the multidisciplinary care team. Notified them that he has been needing to wear his trilogy most of the time due to his O2 demands and that he stated he doesn't feel comfortable discharging today. 1010 - Called Casper from [employer] as the patient's TV volume was not working properly and the pt had asked for it to be checked out. He said he'd put it on his list of things to do and stop by to try and fix it. 1218 - Called Haim from Wound Care and got a report on how to care for his leg wounds. Care continues.
--- NOTE | 2017-03-27 16:37 | NUR ---
spiritual care: routine conversational visit; pt agreeable for eucharistic visit and reported on his oxygen hunger and frustration with respiratory equipment.
--- NOTE | 2017-03-27 17:28 | NUR ---
HOME TRILOGY I spoke with Reji Conner RT from [facility] who follows Patrice and his Trilogy. Reji will stop by the hospital tonight and make adjustment to the pressures and volumes on the machine to see if that helps with his oxygenation.
--- NOTE | 2017-03-28 04:13 | NUR ---
Confusion/no tele/De-Sat Seems confused about trilogy , asking repeatedly that same things of the 2 RT in his room , removed the trilogy mask several times , not able to replace without assistance, Saline locked, Trilogy @ 10 L O2 , HR: 90's
[2017-03-28 04:32] LABS: BASOPHILS % (AUTO) 0.2 % (0-3); EOSINOPHILS % (AUTO) 2.8 % (0-5); MONOCYTES % (AUTO) 7.5 % (4-12); Mean Corpuscular Hemoglobin 32.5 pg (27.0-35.0); Mean Corpuscular Volume 106.5 fL (81-100); NEUTROPHILS % (AUTO) 79.9 % (40-74); Platelet Count 289 bil/L (150-400)
[2017-03-28 04:37] VITALS: BP 114/70; PULSE 65; RESP 20; O2SAT 96
[2017-03-28 04:50] LABS: INR 2.01 ratio
[2017-03-28 09:30] VITALS: O2SAT 94
[2017-03-28 09:57] VITALS: BP 124/55; PULSE 69; RESP 18; O2SAT 97
[2017-03-28] MEDS: Multivit-Miner-Folic Acid-Iron Tablet PO SCH (10:09)
--- NOTE | 2017-03-28 11:43 | PCM.DIMED ---
Rosa Joy DO 03/28/17 1126: Discharge Instructions Date of Service March 28, 2017 Dates of Hospitalization March 24, 2017 at 19:53 Discharge Diagnosis Discharge Diagnosis During this hospital stay you were treated for respiratory failure, kidney injury and continued on your home medications for your high blood pressure, diabetes, gout, and atrial fibrillation. Diet Discharge Diet: Heart Healthy, Diabetic Activity Discharge Activity: Home Health Phyical Therapy Call your provider Call your provider for: Fever or Chills, Shortness of breath, Bleeding, Chest pain, Weakness (unilateral) (If you develop any new or concerning symptoms contact your primary care provider. ) Patient Instructions Patient Instructions It is important that you wear the Trilogy at all times and followup with your primary care provider, Dr. Shaver within the next week to discuss this hospital stay and have your INR checked. The blood thinner (warfarin) that you are taking will need to be monitored closely and adjustments may need to be made to this medication. Additionally, we recommend that you establish care with a [facility] (Lung specialist). Please discuss this with your primary care provider to get a referral. We would like you to resume home health services and physical therapy at discharge. Continue to work on changing your diet and stop drinking alcohol. As we discussed, weight loss is important and will help with your breathing. Please talk with your primary care provider about healthy diet and exercise programs. . Follow-up plan Doni Shaver MD [facility] [address] [place] [address] [phone] Follow-up Provider: Doni Shaver MD Follow-up with PCP in: 1 week Osvaldo Hendrix MD 03/28/17 1657: Discharge Instructions Attending's Statement The patient was seen and examined together with Dr. Joy on 03-27-17 and I agree with the history, exam and plan as outlined in the note above. Rosa Joy DO March 28, 2017 11:26 Osvaldo Hendrix MD March 28, 2017 16:57
--- NOTE | 2017-03-28 11:54 | PCM.PHAPRO ---
Progress Date of Service: March 28, 2017 Shortness of breath. Warfarin management per pharmacy Indication: TAVR (?) Goal INR: 2-3 Date March 25-March 26-March 27-March 28-March INR 7.89 7.41 5.7 3.29 2.01 INR change -0.48 -1.71 -2.41 -1.28 Warf Dose HELD HELD HOLD 1MG XXXXXX INR is therapeutic but trending down following several days of held doses. Discharge orders have already been placed but will place orders for tonight's warfarin dose in case discharge is delayed. Give warfarin 2.5 mg one time this evening at 1700. Pharmacy to continue to monitor and dose warfarin daily. Thank you, Kizzy Bennett Pharmacist Kizzy Bennett March 28, 2017 11:54
--- NOTE | 2017-03-28 14:12 | NUR ---
PT. HOME O2 ESTABLISHED WITH [facility]. PT. BEING DISCHARGED. SON IS BRINGING A TANK. PT. ENCOURAGED TO CALL [facility] AFTER DISCHARGE IF QUESTIONS ON TRILOGY EQUIPMENT. GREER MADERA FROM [facility] CALLED AND INFORMED OF PT. DISCHARGE FOR FOLLOWUP.
--- NOTE | 2017-03-28 14:30 | NUR ---
Discharge 09 - Discussed his care with Dr. Maradiaga, Dr. Hendrix, and the rest of the multidisciplinary care team during morning rounds. 1430 - He discharged after having his IV discontinued intact. Discussed and gave his discharge paperwork (care notes and instructions). He did not have any questions at the time of discharge. Emphasized the importance of wearing his trilogy all the time and follow-up with his Primary Care Provider. He was set up with his trilogy on battery power and an oxygen tank for the ride home. He was wheeled down to the lobby in a wheelchair where his son had come to pick him up and take him home.
--- NOTE | 2017-03-28 15:03 | NUR ---
Social Work Note: Discharge Data& Assessment: Per pt is medically ready to discharge home via POV. JAMES met with pt at bedside to confirm discharge plan and assess for any unmet needs. Patrice Alatorre is a 66 year old male admitted on 03/24/2017 for hypoxia and respiratory failure. Per pt is medically stable and ready for discharge. SW received order from for [facility] PT and RN 2x a week. Pt is currently open with [facility]. SW spoke with Leif from [facility] and notified him of pt discharge. SW also notified [facility] of pt discharge, SW spoke with RT Reji through [employer] who plans to meet pt at home for a follow up visit in the next 24 hours. Reji RT from [employer] met with pt at bedside last night to confirm understanding of use of Trilogy Machine and transporting it home with him in a private vehicle as pt Trilogy has a 5 hour battery pack. Pt confirmed understanding. Pt son Christiano transporting pt home. SW spoke with pt son Christiano and confirmed he will transport pt home and will be bringing pt home oxygen tank to supplement the Trilogy machine during transport home. Pt and pt son deny any other needs. No other discharge needs identified. All updated and agreeable to plan. Plan: Per pt is medically ready to discharge home via POV with resume Trilogy through [facility], [facility] through [facility] and [facility] PT and RN 2x a week. Pt and pt son deny any other needs. No other discharge needs identified. All updated and agreeable to plan. RUDY Vargas
--- NOTE | 2017-03-29 09:43 | PCM.DC.MED ---
Discharge Summary Date of Service March 28, 2017 Dates of Hospitalization Date of Hospital Admission March 24, 2017 at 19:53 Date of Discharge: March 28, 2017 Providers: Admitting Physician: Ronny Antony MD Primary Care Physician: Doni Shaver MD Attending Physician: Ronny Antony MD Diagnosis at Time of Discharge Diagnosis at Time of Discharge Acute on chronic hypercapneic respiratory failure. Acute renal failure Atrial fibrillation chronic. Supra-therapeutic INR Hyperkalemia Hypermagnesemia History of systolic heart failure Diabetes mellitus, type 2 ETOH use disorder Hypertension Hyperlipidemia Obstructive sleep apnea Coronary artery disease Morbid obesity Gout Procedures XRay, CTs & MRIs (03/24/17) X-RAY CHEST ONE VIEW, PORTABLE IMPRESSION: Persistent small pleural effusions and bibasilar airspace opacities consistent with compressive atelectasis versus pneumonia. Recommend clinical correlation and followup to resolution. Interpreted and approved by: Shima Abraham MD on 03/24/2017 at 16:57 . (03/25/17) X-RAY CHEST ONE VIEW, PORTABLE IMPRESSION: Bibasilar opacities and trace effusions, unchanged. Dictated and approved by: Diane Kim M.D. on 03/25/2017 at 10:14 . Brief History Per admission history and physical on March 24, 2017. ELIANA LOAIZA DO Mr. Yahir Alatorre is a pleasant 66-year-old gentleman admitted to [facility] for shortness of breath. He reports he is on trilogy of home but does not use it and has been declining daily since his recent discharge in February. He states that he wakes up tired every day and that he called his son and his son talked him into coming to the hospital. The patient was recently admitted here about 2 weeks ago for pneumonia and hypercarbic respiratory failure. He was sent home with plan for 3-way trilogy CPAP and 3L of home O2 who has a course of outpatient antibiotics which he states that he is finished. He states he has not been using his 3-way trilogy CPAP at night because he does not feel that it fits correctly Pt c/o associated fatigue and generalized weakness. He lost his balance today and fell without head injury or change in LOC. He says that he has a home oxygen meter and that he has been experiencing saturation is at the 70s with ambulation spite wearing his home oxygen.He denies fevers, chills, cough, chest pain, nausea, vomiting, abdominal pain, dysuria. He reports some dizziness and near syncopal episode today, shortness of breath and fatigue. He reports one week of diarrhea that has since resolved. He has a past medical history significant for hypertension, CHF, severe aortic stenosis status post TAVR last year, hyperlipidemia, NIDDM, renal insufficiency , previous OH, morbid obesity, obesity hypoventilation syndrome, JODIE with an compliant CPAP use, alcohol use disorder. He is a nonsmoker never smoker. He reports significant alcohol intake of 8-9 drinks similar to andrea or whiskey per night. On his previous admit there was a report of alcohol withdrawal and treated on [place] Ativan however patient was very agitated during and was switched to Valium with good results. Upon arrival to the emergency department he was in significant respiratory distress. Oxygen saturation down to the 80s despite receiving 4 L by nasal cannula. He is otherwise afebrile with stable vital signs. Chest x-ray was obtained as below: Persistent small pleural effusions and bibasilar airspace opacities consistent with compressive atelectasis versus pneumonia. Recommend clinical correlation and followup to resolution. Laboratory studies notable as below: CBC: Leukocytosis of 12.9 increased from prior, stable HCT of 41.7 CMP: BUN of 49 up from prior of 28, creatinine acutely elevated to 1.69 up from 1.1. Total bilirubin elevated at 2.9. Lactic acid 0.9 BNP: 13,357 Troponin negative INR: 2.2 AB.266 / 88 / 94.8 / 38.7 / 8.5 . Hospital Course Mr. Alatorre is a 66-year-old gentleman with a history of coronary artery disease, hypertension, diastolic heart failure, aortic stenosis status post TAVR in January of 2016, pacemaker, diabetes, sleep apnea and obesity. He presented to the emergency department with shortness of breath and subsequently admitted for acute on chronic hypercapneic respiratory failure, acute renal failure, hyperkalemia and possible healthcare associated pneumonia. Acute on chronic hypercapneic respiratory failure. Present on admission. Resolved. - Most likely secondary to obesity hypoventilation syndrome and noncompliance with home Trilogy. Initially some concern for healthcare associated pneumonia as patient was discharged last month. - ABG showed respiratory acidosis on admission. Chest xray w/bibasilar opacities and no focal consolidation. - Patient received two days of IV vancomycin/zosyn for HCAP coverage. Antibiotics discontinued on 03/26/17 due to lack of signs/symptoms consistent with infection. - Procalcitonin unremarkable x2, Resp PCR and urine antigens negative. - Counseled patient regarding the importance of wearing his trilogy at home. - Continued supplemental oxygen, trilogy and home albuterol. Acute renal failure. Present admission. Improved. - Likely prerenal secondary to hypoperfusion due to poor oral intake and possibly heart failure. - Patient without diagnosis of CKD, via chart review BUN/Cr 28.1/1.1 on . - BUN/Cr 49/1.69 at presentation. 32/1.47 at discharge. - Patient's metformin was held and he received IV fluids cautiously due to history of heart failure. - Followed CMP Atrial fibrillation chronic. Present on admission. Presumed stable. - Patient chronically anticoagulated on warfarin. INR supratherapeutic. INR 7.89 at presentation, 2.01 at discharge. - Pharmacy dosed warfarin and monitored INR. Patient is to followup with primary care provider for close monitoring of INR. - Patient was continued on metoprolol tartrate, 100mg twice daily for rate control - Patient was continued on metoprolol tartrate 25 mg as needed for palpitations. Supra-therapeutic INR, unknown chronicity. Present on admission. Improved. - Patient chronically anticoagulated on warfarin due to Afib. INR 7.89 at presentation and therapeutic at discharge, 2.01. - History of bicuspid aortic valve with TAVR on 02/02/2016. - Pharmacist dosed warfarin History of systolic heart failure, chronic. Present admission. Presumed stable. - Likely multifactorial due coronary artery disease, Afib, valvular disease and possibly alcoholic cardiomyopathy. - Uncertain if confirmed diagnosis. Recent echocardiogram on 02/14/17 was grossly normal. ACEi was not started due to acute renal failure and uncertainty of heart failure diagnosis. - BNP 13,000, up from 6000 in February of 2017. - Patient was continued on home torsemide 40 mg twice a day. - Recommend close outpatient followup with primary care provider, consideration of ACEi. Diabetes mellitus, type 2, chronic. Present on admission. Active. - Patient not on insulin. Currently controlled with metformin 500mg bid and glipizide 10mg daily. - HbA1c 6.2 on 02/13/17 - Metformin held, due to renal failure as above. - Patient was continued on home glipizide 10 mg daily and home gabapentin 900 mg daily. - Patient received Low-dose correctional insulin lispro as needed and was placed on a carbohydrate restrictive diet. ETOH use disorder, chronic. Present on admission. Presumed stable. - Patient reported 3-4 shots of whiskey a night along with andrea and wine. Denied history of withdrawal symptoms. - CIWA with Valium was ordered and not needed. Patient without signs or symptoms of withdrawal. - Patient received thiamine 100mg daily. - Counseled patient regarding alcohol cessation and Social Work was consulted. Hypertension, chronic. Present on admission. Presumed stable. - Patient was continued on metoprolol as above Hyperlipidemia, chronic. Present on admission. Presumed stable. - LDL 64, HDL 39, total cholesterol 146, and triglycerides 215 on 02/13 - Patient was continued on home simvastatin 20 mg daily. Obstructive sleep apnea, chronic. Present on admission. Active. - Patient reportedly noncompliant with CPAP at home. - Home Trilogy machine, patient education with respiratory therapy. - Counseled patient regarding necessity Trilogy, advised patient to discuss referral to [facility] with his primary care provider. Coronary artery disease, chronic. Present on admission. Presumed stable. - History of OH. Patient remained asymptomatic for chest pain. Troponins were negative x2. - Patient was continued on home medications. Morbid obesity, chronic. Present admission. Active. - BMI 52.3 - Counseled patient regarding lifestyle changes - Patient was placed on consistent carbohydrate diet - Physical Therapy consulted and patient is to resume home physical therapy at discharge. Gout, chronic. Present on admission. Presumed stable. - Patient was continued on home allopurinol 100 mg 3 times a day Various wounds, present on admission. Active. - Left medial malleolus wound not followed by home health or other. - Right medial calf wound, reportedly dressed by home health nurse prior to admission. - Wound Care followed and provided dressing changes, wound care as needed. - Patient is to resume home health nursing at discharge. Hyperkalemia, acute. Present on admission. Resolved. - Likely multifactorial and secondary to renal insufficiency, hyperglycemia, and respiratory acidosis. - Potassium 5.6 at presentation and 4.5 on discharge. Hypermagnesemia, acute. Present on admission. Resolved. - Likely secondary to renal insufficiency. - Magnesium 2.9 at presentation and 2.5 on discharge. - IV fluids, as above - Patient's home magnesium was held. History of aortic stenosis s/p TAVR on 02/02/16. Present on admission. Presumed stable. -INR and anticoagulation, as above. History of complete heart block with permanent pacemaker. Present on admission. Presumed stable. - Patient has a dual-chamber, [employer] permanent pacemaker for complete heart block. - Monitored with telemetry. Exam Vital Signs (Last) Date Time Temp Pulse Resp B/P Pulse Ox O2 Delivery O2 Flow Rate FiO2 03/28/17 09:57 Supplement Oxygen CPAP/BIPAP 03/28/17 09:57 37.1 69 18 124/55 97 7.00 03/25/17 12:00 35 Exam General: Elderly obese,unkempt gentleman lying in bed. In no acute distress, BiPAP in place. Appropriately interactive HEENT: Normocephalic, atraumatic. Pupils equal, round, and reactive to light and accommodation. Mucosa moist/pink. Neck: Supple, nontender, difficult to asses due to body habitus and sanchez no obvious JVD. No lymphadenopathy or thyromegaly. Cardiovascular: Regular rate and rhythm with no murmurs, rubs, or gallops appreciated Pulmonary: Clear to auscultation bilaterally with no crackles, wheezes, or rhonchi. Abdomen: Soft, obese, nontender, nondistended. No masses appreciated. Bowel tones present. Extremities: Bilateral lower ext edema, no cyanosis or clubbing. Skin: Normal temperature, turgor. Neurological: Cranial nerves grossly intact. No focal deficit. Psychiatric: Normal mood and affect. Alert and oriented to person, place, and time. Test 03/24/17 16:55 03/25/17 00:00 03/25/17 01:08 03/25/17 03:40 Pro-B-Type Natriuretic Peptide 33130hu/mL (0-376) Urine Color Yellow (YELLOW) Urine Appearance Clear (CLEAR,HAZY) Urine pH 5.0 (5.0-8.0) Urine Specific [place] 1.015 (1.003-1.035) Urine Protein Tracemg/dL (NEG,TRACE) Urine Glucose (UA) Negativemg/dL (NEGATIVE) Urine Ketones Negativemg/dL (NEGATIVE) Urine Occult Blood Trace (NEGATIVE) Urine Nitrite Negative (NEGATIVE) Urine Bilirubin Negative (NEGATIVE) Urine Urobilinogen Normalmg/dL (NORMAL) Urine Leukocyte Esterase Negative (NEGATIVE) Urine RBC 0-2/hpf (0-2) Urine WBC 0-5/hpf (0-5) Urine Epithelial Cells Few/hpf (NONE-MOD) Urine Crystals None seen (NONE SEEN) Urine Bacteria Few/hpf (NONE-FEW) Urine Hyaline Casts >20/lpf (NONE) Urine Granular Casts None seen (NONE SEEN) Urine Waxy Casts None seen (NONE SEEN) Urine Red Blood Cell Casts None seen (NONE SEEN) Urine White Blood Cell Casts None seen (NONE SEEN) Urine Mucus None seen (None Seen) Urine Trichomonas None seen (NONE SEEN) Urine Yeast None (NONE SEEN) Urinalysis Comment None Urine Culture Reflexed Not indicated Urine Legionella pneumophilia Ag Negative (Negative) Troponin T 0.010ug/L (0.0-0.011) Lactic Acid Level 1.0mmol/L (0.4-2.0) Test 03/26/17 03:32 03/27/17 03:55 03/28/17 04:20 Total Bilirubin 0.5mg/dL (0.0-1.2) Aspartate Amino Transf (AST/SGOT) 22U/L (0-50) Alanine Aminotransferase (ALT/SGPT) 16U/L (0-44) Alkaline Phosphatase 99U/L (25-160) Total Protein 6.4g/dL (6.4-8.4) Albumin 3.4g/dL (3.4-5.0) Procalcitonin 0.14ng/mL (0.00-0.08) Phosphorus Level 4.4mg/dL (2.5-4.9) Magnesium Level 2.5mg/dL (1.6-2.6) Vitamin B12 Level 388pg/mL (211-946) Folate 7.6ng/mL (>3.0) Hold Martinez Top Tube Received (Received) White Blood Count 10.7th/mm3 (3.8-10.1) Red Blood Count 3.85mil/mm3 (4.40-5.80) Hemoglobin 12.5g/dL (13.8-17.2) Hematocrit 41.0% (41.0-50.0) Mean Corpuscular Volume 106.5fL (81-100) Mean Corpuscular Hemoglobin 32.5pg (27.0-35.0) Mean Corpuscular Hemoglobin Concent 30.5% (32.0-37.0) Red Cell Distribution Width 15.4% (12.3-15.4) Platelet Count 289bil/L (150-400) Neutrophils (%) (Auto) 79.9% (40-74) Lymphocytes (%) (Auto) 9.5% (14-46) Monocytes (%) (Auto) 7.5% (4-12) Eosinophils (%) (Auto) 2.8% (0-5) Basophils (%) (Auto) 0.2% (0-3) Prothrombin Time 21.8sec (8.1-12.5) Prothromb Time International Ratio 2.01ratio Sodium Level 142mEq/L (134-144) Potassium Level 4.5mEq/L (3.5-5.2) Chloride Level 96mEq/L (97-108) Carbon Dioxide Level 41mmol/L (18-29) Blood Urea Nitrogen 32mg/dL (8-27) Creatinine 1.47mg/dL (0.76-1.27) Estimat Glomerular Filtration Rate 51mL/min (>59) Glucose Level 132mg/dL (60-99) Calcium Level 9.3mg/dL (8.5-10.1) Microbiology Results 03/24/17 Blood Culture- no growth to date 03/25/17 Streptococcus pneumoniae Ag Screen- negative 03/25/17 Legionella urine antigen- negative 03/25/17 Respiratory viral PCR- negative 03/25/17 MRSA screen- negative . Discharge Medications Discharge Medications Albuterol HFA (Proair HFA) 8.5 Gm Hfa.aer.ad 2 PUFFS INHALATION BID (Reported) Allopurinol (Allopurinol) 100 Mg Tablet 100 MG PO DAILY (Reported) Gabapentin (Gabapentin) 300 Mg Capsule 300 MG PO TID (Reported) Gemfibrozil (Lopid) 600 Mg Tablet 600 MG PO BID (Reported) Glipizide (Glipizide) 10 Mg Tablet 10 MG PO AM (Reported) Magnesium Oxide (Magnesium Oxide) 400 Mg Tablet 400 MG PO BID (Reported) Metformin (Metformin) 500 Mg Tablet 500 MG PO BID (Reported) Metoprolol Tartrate (Metoprolol Tartrate) 100 Mg Tablet 100 MG PO BID Prescribed by: ROMERO LANIER MD Simvastatin (Simvastatin) 20 Mg Tablet 20 MG PO HS (Reported) Torsemide (Torsemide) 20 Mg Tablet 40 MG PO BID (Reported) Warfarin Sodium (Warfarin Sodium) 5 Mg Tablet 5 MG PO MONDAY-MONDAY (Reported) Warfarin Sodium (Warfarin Sodium) 2.5 Mg Tablet 2.5 MG PO MONDAYS (Reported) As needed Metoprolol Tartrate (Metoprolol Tartrate) 25 Mg Tablet 25 MG PO DAILY PRN PRN palpitations (Reported) Followup Plan Follow-up plan Doni Shaver MD [id number] [place], [place] [id number] Discharge Diet: Heart Healthy, Diabetic Discharge Activity: Home Health Phyical Therapy Patient Instructions It is important that you wear the Trilogy at all times and followup with your primary care provider, Dr. Shaver within the next week to discuss this hospital stay and have your INR checked. The blood thinner (warfarin) that you are taking will need to be monitored closely and adjustments may need to be made to this medication. Additionally, we recommend that you establish care with a [facility] (Lung specialist). Please discuss this with your primary care provider to get a referral. We would like you to resume home health services and physical therapy at discharge. Continue to work on changing your diet and stop drinking alcohol. As we discussed, weight loss is important and will help with your breathing. Please talk with your primary care provider about healthy diet and exercise programs. . Follow-up Provider: Doni Shaver MD Follow-up with PCP in: 1 week copies to: Doni Shaver MD, Courtney M DO March 28, 2017 11:48
== END 2017-03-28 14:29 | disposition home or self-care (01) | DRG 189 ==
LOC: SED 14:00 → PCC 19:53
PROVIDERS: ADMIT Hospitalist; ATTEND Hospitalist
PROC: 5A09557 Assistance with Respiratory Ventilation, Greater than 96 Consecutive Hours, Continuous Positive Airway Pressure (ICD-10-PCS; principal; 2017-03-24)
PROC: 4A033R1 Measurement of Arterial Saturation, Peripheral, Percutaneous Approach (ICD-10-PCS; 2017-03-24)
DX: J96.22 Acute and chronic respiratory failure with hypercapnia (principal); I50.22 Chronic systolic (congestive) heart failure; E66.2 Morbid (severe) obesity with alveolar hypoventilation; Z68.43 Body mass index [BMI] 50.0-59.9, adult; N17.9 Acute kidney failure, unspecified; Z99.81 Dependence on supplemental oxygen; Z71.3 Dietary counseling and surveillance; Z79.84 Long term (current) use of oral hypoglycemic drugs; Z79.01 Long term (current) use of anticoagulants; I25.2 Old myocardial infarction; Z91.19 Patient's noncompliance with other medical treatment and regimen; R79.1 Abnormal coagulation profile; E87.5 Hyperkalemia; F10.10 Alcohol abuse, uncomplicated; N18.9 Chronic kidney disease, unspecified; E11.9 Type 2 diabetes mellitus without complications; I12.9 Hypertensive chronic kidney disease with stage 1 through stage 4 chronic kidney disease, or unspecified chronic kidney disease; Z95.0 Presence of cardiac pacemaker; I48.2 Chronic atrial fibrillation; M10.9 Gout, unspecified; E78.5 Hyperlipidemia, unspecified; E83.41 Hypermagnesemia; S90.512D Abrasion, left ankle, subsequent encounter; S80.812D Abrasion, left lower leg, subsequent encounter; S90.412D Abrasion, left great toe, subsequent encounter